=== PATIENT | male | born 1965 | race American Indian/Alaskan Native ===

== ENCOUNTER 2021-11-02 12:28 | Inpatient (IN) | payer SELFPAY ==
[2021-11-02] MEDS ORDERED: SODIUM CHLORIDE 0.9% 1000 ML 1,000 ML IV ONE (14:02)
--- NOTE | 2021-11-02 14:05 | Emergency Department Report ---
ED General Adult HPI - General Chief complaint: Head Injury Stated complaint: FELL DOWN STAIRS PUI?: No Time Seen by Provider: 11/02/21 13:54 Source: patient, RN notes reviewed Mode of arrival: Wheelchair Limitations: Physical Limitation - History of Present Illness Initial comments: The patient was evaluated in the emergency department for symptoms described in the history of present illness. He/she was evaluated in the context of the global COVID-19 pandemic, which necessitated consideration that the patient might be at risk for infection with the virus that causes COVID-19. Institutional protocols and algorithms that pertain to the evaluation of patients at risk for COVID-19 are in a state of rapid change based on i nformation released by regulatory bodies including the CDC and federal and state organizations. These policies and algorithms were followed during the patient's care in the emergency department. Please note that these policies, procedures and recommendations changed on a rapid basis. The patient is a 56-year-old gentleman. The patient reports that he is from [facility]. He has been living here in [facility] with a son/family member. He believes he has a past medical history of "inflamed liver." He does not know if he takes any prescription medications. He does not know if he has any additional past medical history. The patient presents to the ER today with a complaint of mechanical fall after walking upstairs. He reports that he has had progressive weakness and decline in functional status over the past 7 months. He reports that when he was walking up the stairs, he bent over, and felt his legs give out on him. He denies bladder/bowel retention incontinence and saddle anesthesia. He landed on his lumbar back, and cervical spine, as well as hitting his head. He complains of headache, neck pain, and lower back pain. He denies focal extremity weakness/numbness. He denies chest pain abdominal pain, vomiting. He denies fevers and chills. He reports that he is able to lift himself up out of bed without assistance, but that he does require assistance with some of his activities of daily living. He does not have a home health aide or home assistance. He reports that family members assist him with his activities of daily living. -: Sudden Severity scale (0 -10): 10 Improves with: rest Worsens with: movement - Related Data Allergies Allergy/AdvReac Type Severity Reaction Status Date / Time No Known Allergies Allergy Unverified 11/02/21 12:46 ED Review of Systems ROS: Stated complaint: FELL DOWN STAIRS Other details as noted in HPI Constitutional: malaise, weakness. denies: fever Eyes: denies: eye discharge ENT: denies: epistaxis Respiratory: denies: cough Cardiovascular: denies: chest pain, palpitations Gastrointestinal: denies: abdominal pain, nausea, vomiting, hematemesis, melena, hematochezia Genitourinary: denies: dysuria Musculoskeletal: back pain, arthralgia, myalgia Neurological: headache, weakness (Generalized weakness). denies: numbness, paresthesias ED Physical Exam - General Limitations: No Limitations General appearance: alert, in no apparent distress - Head Head exam: Present: atraumatic, normocephalic - Eye Eye exam: Present: normal appearance, EOMI. Absent: nystagmus - ENT ENT exam: Present: normal exam, normal orophraynx, mucous membranes moist, normal external ear exam - Neck Neck exam: Present: normal inspection, full ROM. Absent: tenderness, me ningismus - Respiratory Respiratory exam: Present: normal lung sounds bilaterally. Absent: respiratory distress, wheezes, rales, rhonchi, stridor, decreased breath sounds - Cardiovascular Cardiovascular Exam: Present: regular rate, normal rhythm, normal heart sounds. Absent: bradycardia, tachycardia, irregular rhythm, systolic murmur, diastolic murmur, rubs, gallop - GI/Abdominal GI/Abdominal exam: Present: soft. Absent: distended, tenderness, guarding, rebound, rigid, pulsatile mass - Rectal Rectal exam: Present: deferred - Extremities Exam Extremities exam: Present: normal inspection, full ROM, other (2+ pulses noted in the bilateral upper and lower extremities. There is no palpable cord. negative Homans sign. Muscular compartments are soft. The pelvis is stable.). Absent: pedal edema, calf tenderness - Back Exam Back exam: Present: normal inspection, muscle spasm, paraspinal tenderness, vertebral tenderness, other (There is cervical tenderness. There is lumbar tenderness). Absent: tenderness, CVA tenderness (L) - Neurological Exam Neurological exam: Present: alert (Patient withdraws both lower extremities vigorously in response to painful stimuli. He moves 4 extremities spontaneously), oriented X3, reflexes normal (Downgoing plantar reflexes bilaterally), other (No facial droop. Tongue midline. Extraocular movements intact bilaterally. Facial sensation intact to light touch in V1, V2, V3 distribution bilaterally. 5 and a 5 strength in 4 extremities. Sensation intact to light touch in 4 extremities.). Absent: motor sensory deficit - Psychiatric Psychiatric exam: Present: anxious - Skin Skin exam: Present: warm, dry, intact, normal color. Absent: rash ED Course Vital Signs 11/02/21 11/02/21 11/02/21 12:47 14:04 14:58 Temperature 97.8 F 98.9 F 98.9 F Pulse Rate 91 H 92 H Respiratory 20 17 Rate Blood Pressure 117/63 103/65 [Left] O2 Sat by Pulse 97 97 Oximetry - Reevaluation(s) Reevaluation #1: 11/02/21 15:16 Differential diagnosis, including but not limited to: Closed head injury, cervical spine injury, lumbar spine injury, thoracic spine injury, deconditioning, debility, pneumonia, urinary tract infection, myositis, rhabdomyolysis, myocardial infarction Assessment and plan: 56-year-old gentleman with frequent falls, and general debility over the past 7 months. He has 5/5 strength in 4 extremities, appropriate reflexes in the upper and lower extremities, sensation intact to pinch and light touch in the lower extremities, with downgoing plantar reflexes. He denies bladder or bowel retention incontinence as well as saddle anesthesia. His examination at this time is not suggestive of cord compression or emergent spinal pathology. He does describe a decline in functional status over the past 7 months, laboratory studies demonstrate rhabdomyolysis, transaminitis likely secondary to rhabdomyolysis, and elevated troponin, which is likely a type II troponin leak, likely secondary to the aforementioned. Noncontrast CT scan of the brain, cervical spine, thoracic spine and lumbar spine showed no fracture or dislocation. X-ray the chest and pelvis to my interpretatio Reevaluation #2: 11/02/21 15:24 Hospital physician, Dr. Still to admit patient to the medical service. - Consultations Consultation #1: 11/02/21 15:21 Discussed the patient's history, physical, laboratory studies and imaging studies with cardiology nurse practitioner on-call, Chavo Delgado. He is in agreement with the plan of care, and the cardiology team will follow in consultation. Awaiting callback from hospital physician. ED Medical Decision Making - Lab Data Result diagrams: 11/02/21 14:17 11/02/21 14:17 Vital Signs 11/02/21 11/02/21 11/02/21 12:47 14:04 14:58 Temperature 97.8 F 98.9 F 98.9 F Pulse Rate 91 H 92 H Respiratory 20 17 Rate Blood Pressure 117/63 103/65 [Left] O2 Sat by Pulse 97 97 Oximetry Lab Results 11/02/21 11/02/21 11/02/21 Range/Units 14:17 14:17 14:17 WBC 6.6 (4.5-11.0) K/mm3 RBC 4.84 (3.65-5.03) M/mm3 Hgb 12.5 (11.8-15.2) gm/dl Hct 39.4 (35.5-45.6) % MCV 81 L (84-94) fl MCH 26 L (28-32) pg MCHC 32 (32-34) % RDW 17.6 H (13.2-15.2) % Plt Count 469 H (140-440) K/mm3 Lymph % (Auto) 22.3 (13.4-35.0) % [place] % (Auto) 12.5 H (0.0-7.3) % Eos % (Auto) 3.2 (0.0-4.3) % Baso % (Auto) 0.9 (0.0-1.8) % Lymph # (Auto) 1.5 (1.2-5.4) K/mm3 [place] # (Auto) 0.8 (0.0-0.8) K/mm3 Eos # (Auto) 0.2 (0.0-0.4) K/mm3 Baso # (Auto) 0.1 (0.0-0.1) K/mm3 Seg Neutrophils % 61.1 (40.0-70.0) % Seg Neutrophils # 4.0 (1.8-7.7) K/mm3 PT 13.7 (12.2-14.9) Sec. INR 0.95 (0.87-1.13) APTT 35.5 (24.2-36.6) Sec. Sodium 135 L (137-145) mmol/L Potassium 4.4 (3.6-5.0) mmol/L Chloride 103.7 (98-107) mmol/L Carbon Dioxide 23 (22-30) mmol/L Anion Gap 13 mmol/L BUN 10 (9-20) mg/dL Creatinine 0.3 L (0.8-1.3) mg/dL Estimated GFR > 60 ml/min BUN/Creatinine Ratio 33 % Glucose 85 (75-100) mg/dL Lactic Acid (0.7-2.0) mmol/L Calcium 8.7 (8.4-10.2) mg/dL Total Bilirubin 0.20 (0.1-1.2) mg/dL AST 241 H (5-40) units/L ALT 150 H (7-56) units/L Alkaline Phosphatase 79 (35-129) units/L Ammonia (25-60) umol/L Total Creatine Kinase 32891 H (55-170) units/L Troponin T 2.360 H* (0.00-0.029) ng/mL Total Protein 8.3 H (6.3-8.2) g/dL Albumin 3.6 L (3.9-5) g/dL Albumin/Globulin Ratio 0.8 % TSH (0.270-4.200) mlU/mL Salicylates (2.8-20.0) mg/dL Acetaminophen (10.0-30.0) ug/mL Plasma/Serum Alcohol (0-0.07) % 11/02/21 11/02/21 11/02/21 Range/Units 14:17 14:17 14:17 WBC (4.5-11.0) K/mm3 RBC (3.65-5.03) M/mm3 Hgb (11.8-15.2) gm/dl Hct (35.5-45.6) % MCV (84-94) fl MCH (28-32) pg MCHC (32-34) % RDW (13.2-15.2) % Plt Count (140-440) K/mm3 Lymph % (Auto) (13.4-35.0) % [place] % (Auto) (0.0-7.3) % Eos % (Auto) (0.0-4.3) % Baso % (Auto) (0.0-1.8) % Lymph # (Auto) (1.2-5.4) K/mm3 [place] # (Auto) (0.0-0.8) K/mm3 Eos # (Auto) (0.0-0.4) K/mm3 Baso # (Auto) (0.0-0.1) K/mm3 Seg Neutrophils % (40.0-70.0) % Seg Neutrophils # (1.8-7.7) K/mm3 PT (12.2-14.9) Sec. INR (0.87-1.13) APTT (24.2-36.6) Sec. Sodium (137-145) mmol/L Potassium (3.6-5.0) mmol/L Chloride (98-107) mmol/L Carbon Dioxide (22-30) mmol/L Anion Gap mmol/L BUN (9-20) mg/dL Creatinine (0.8-1.3) mg/dL Estimated GFR ml/min BUN/Creatinine Ratio % Glucose (75-100) mg/dL Lactic Acid 1.60 (0.7-2.0) mmol/L Calcium (8.4-10.2) mg/dL Total Bilirubin (0.1-1.2) mg/dL AST (5-40) units/L ALT (7-56) units/L Alkaline Phosphatase (35-129) units/L Ammonia 17.0 L (25-60) umol/L Total Creatine Kinase (55-170) units/L Troponin T (0.00-0.029) ng/mL Total Protein (6.3-8.2) g/dL Albumin (3.9-5) g/dL Albumin/Globulin Ratio % TSH (0.270-4.200) mlU/mL Salicylates (2.8-20.0) mg/dL Acetaminophen (10.0-30.0) ug/mL Plasma/Serum Alcohol < 0.01 (0-0.07) % 11/02/21 11/02/21 11/02/21 Range/Units 14:17 14:17 14:17 WBC (4.5-11.0) K/mm3 RBC (3.65-5.03) M/mm3 Hgb (11.8-15.2) gm/dl Hct (35.5-45.6) % MCV (84-94) fl MCH (28-32) pg MCHC (32-34) % RDW (13.2-15.2) % Plt Count (140-440) K/mm3 Lymph % (Auto) (13.4-35.0) % [place] % (Auto) (0.0-7.3) % Eos % (Auto) (0.0-4.3) % Baso % (Auto) (0.0-1.8) % Lymph # (Auto) (1.2-5.4) K/mm3 [place] # (Auto) (0.0-0.8) K/mm3 Eos # (Auto) (0.0-0.4) K/mm3 Baso # (Auto) (0.0-0.1) K/mm3 Seg Neutrophils % (40.0-70.0) % Seg Neutrophils # (1.8-7.7) K/mm3 PT (12.2-14.9) Sec. INR (0.87-1.13) APTT (24.2-36.6) Sec. Sodium (137-145) mmol/L Potassium (3.6-5.0) mmol/L Chloride (98-107) mmol/L Carbon Dioxide (22-30) mmol/L Anion Gap mmol/L BUN (9-20) mg/dL Creatinine (0.8-1.3) mg/dL Estimated GFR ml/min BUN/Creatinine Ratio % Glucose (75-100) mg/dL Lactic Acid (0.7-2.0) mmol/L Calcium (8.4-10.2) mg/dL Total Bilirubin (0.1-1.2) mg/dL AST (5-40) units/L ALT (7-56) units/L Alkaline Phosphatase (35-129) units/L Ammonia (25-60) umol/L Total Creatine Kinase (55-170) units/L Troponin T (0.00-0.029) ng/mL Total Protein (6.3-8.2) g/dL Albumin (3.9-5) g/dL Albumin/Globulin Ratio % TSH 3.450 (0.270-4.200) mlU/mL Salicylates < 0.3 L (2.8-20.0) mg/dL Acetaminophen 5.0 L (10.0-30.0) ug/mL Plasma/Serum Alcohol (0-0.07) % - EKG Data -: EKG Interpreted by Me EKG shows normal: sinus rhythm Rate: normal - EKG Data When compared to previous EKG there are: previous EKG unavailable 11/02/21 15:11 The EKG is interpreted at 14: 07 Sinus rhythm, 94 bpm. Normal axis, QTC 438 ms. Normal P wave axis. Left ventricular hypertrophy. Not consistent with STEMI. No prior for comparison - Radiology Data Radiology results: report reviewed, image reviewed interpreted by me: 1 view x-ray of the chest, interpreted by myself, no pneumonia, no pneumothorax. X-ray of the pelvis, 1 view, interpreted by myself, no fracture or dislocation CT cervical spine wo con INDICATION / CLINICAL INFORMATION: 56 years Male; Trauma. TECHNIQUE: Axial CT images of the cervical spine were obtained. Sagittal and coronal reformatted images were produced. All CT scans at this location are performed using CT dose reduction for ALARA by means of automated exposure control. COMPARISON: None available. FINDINGS: POST-SURGICAL CHANGES: None. ALIGNMENT: There is no significant spondylolisthesis of the cervical spine. VERTEBRAE: There is notable disc space narrowing at C3-4, C5-6 and C6-7 with associated endplate changes. Milder findings are noted anteriorly at C4-5. However, there is no clear CT evidence of acute fracture the cervical spine. 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 INTRAVERTEBRAL DISCS: The facet and uncovertebral joint hypertrophy at C3-4 are greater on the left with marked left and moderate right foraminal narrowing. The spondylosis effaces the subarachnoid space at this level. There is moderate to marked foraminal narrowing bilaterally at C4-5. There is marked foraminal narrowing bilaterally at C5-6. The spondylosis effaces the ventral subarachnoid space at this level and at C6-7 at. There is marked right and moderate to marked left foraminal narrowing at C6-7. There appears to be moderate right foraminal narrowing at C7-T1. PARASPINAL SOFT TISSUES: No definitive prevertebral soft tissue fluid collections are identified. There are multiple scattered cervical lymph nodes which are nonspecific though may be reactive and correlation would be needed. ADDITIONAL FINDINGS: None. IMPRESSION: 1. There is no clear CT evidence of acute fracture of the cervical spine. 2. There are multilevel degenerative the changes and significant foraminal narrowing involving the cervical spine as detailed above. Signer Name: Chavo Lambert MD Signed: 11/02/2021 1:[address] LUMBAR SPINE WITHOUT CONTRAST INDICATION / CLINICAL INFORMATION: Trauma. Patient fell sustaining back injury. Back pain. TECHNIQUE: Axial CT images were obtained through the lumbar spine. Sagittal and coronal reformatted images were produced. All CT scans at this location are performed using CT dose reduction for ALARA by means of automated exposure control. COMPARISON: None available. FINDINGS: TRAUMA:There is no indication of fracture or traumatic subluxation. ALIGNMENT: No significant abnormality of alignment in the lumbar region. VERTEBRAE: No indication of fracture or bone destruction. Small anterior osteophytes are present lateralizing towards the left. DISC SPACES: Disc height is normally maintained throughout. DEGENERATIVE CHANGES: Advanced facet arthropathy on the left at the L4-5 level. There is no indication of disc extrusion, central canal stenosis or significant neuroforaminal narrowing in the lumbar region. SPINAL CANAL: Central spinal canal is adequate in size throughout the lumbar region. SACRUM:No significant abnormality of the visualized sacrum.. PARASPINAL SOFT TISSUES: No significant abnormality. ADDITIONAL FINDINGS: None. IMPRESSION: 1. No indication of fracture or traumatic subluxation. Signer Name: Dirk Adan MD Signed: 11/02/2021 1:[address] THORACIC SPINE WITHOUT CONTRAST INDICATION / CLINICAL INFORMATION: Trauma. Patient fell sustaining back injury. Back pain. TECHNIQUE: Axial CT images were obtained through the thoracic spine. Sagittal and coronal reformatted images were produced. All CT scans at this location are performed using CT dose reduction for ALARA by means of automated exposure control. COMPARISON: None a vailable. FINDINGS: VERTEBRAE: No significant abnormality. ALIGNMENT: No significant abnormality. DISC SPACES: No significant abnormality. FACET and COSTOVERTEBRAL JOINTS: No significant abnormality. CERVICOTHORACIC JUNCTION:No significant abnormality. SPINAL CANAL: No significant abnormality. PARASPINAL SOFT TISSUES: No significant abnormality. Superior mediastinum and paraspinous soft tissues have an unremarkable appearance. ADDITIONAL FINDINGS: Incidental note is made of a well-circumscribed bone island in the medial aspect of the left fourth rib. LUNGS: Visualized portions the lung are free from confluent infiltrate. No lung nodules are identified. There is no indication of pleural effusion. IMPRESSION: 1. No indication of fracture or traumatic subluxation. No significant degenerative change. Signer Name: Dirk Adan MD Signed: 11/02/2021 1:55 PM Workstation Name: [id number] CT head/brain wo con INDICATION / CLINICAL INFORMATION: 56 years Male; Trauma closed head injury. TECHNIQUE: Routine CT head without contrast. All CT scans at this location are performed using CT dose reduction for ALARA by means of automated exposure control. COMPARISON: None. FINDINGS: BRAIN / INTRACRANIAL CONTENTS: The brain parenchyma appears to demonstrate appropriate attenuation for age. The ventricular system is within normal limits in size and configuration. There is no clear CT evidence of acute intracranial hemorrhage or significant mass effect. ORBITS: No significant abnormality of visualized orbits. SINUSES / MASTOIDS: No significant abnormality in the visualized parana aleida sinuses or mastoid air cells. CRANIOCERVICAL JUNCTION: No significant abnormality. ADDITIONAL FINDINGS: There appears be mild edema involving the posterior scalp. The calvarium appears intact. The findings are most consistent with partially visualized incidental lipoma involving right buccal soft tissues. IMPRESSION: 1. There is no CT evidence of acute intracranial process. Signer Name: Chavo Lambert MD Signed: 11/02/2021 1:49 PM Workstation Name: [id number] XR pelvis 1-2V INDICATION / CLINICAL INFORMATION: fall lower back pain. COMPARISON: None available. FINDINGS: BONES/JOINT(S): No acute fracture or subluxation. No significant degenerative changes. SOFT TISSUES: No significant abnormality. ADDITIONAL FINDINGS: None. Signer Name: Efra Gregory MD Signed: 11/02/2021 2:14 PM Workstation Name: [id number] CHEST 1 VIEW 11/02/2021 2:11 PM INDICATION / CLINICAL INFORMATION: fall weakness tachycardia. COMPARISON: None available. FINDINGS: SUPPORT DEVICES: None. HEART / MEDIASTINUM: No significant abnormality. LUNGS / PLEURA: No significant pulmonary or pleural abnormality. No pneumothorax. ADDITIONAL FINDINGS: No significant additional findings. IMPRESSION: 1. No acute findings. Signer Name: Efra Gregory MD Signed: 11/02/2021 2:14 PM Workstation Name: [id number] Critical care attestation.: If time is entered above; I have spent that time in minutes in the direct care of this critically ill patient, excluding procedure time. ED Disposition Clinical Impression: Acute lumbar back pain, Cervical pain (neck), Closed head injury, Fall, Rhabdomyolysis, Transaminitis, Elevated troponin, Debility Disposition: 09 ADMITTED INPATIENT Is pt being admited?: Yes Does the pt Need Aspirin: Yes Condition: Fair Referrals: PRIMARY CARE,MD [Primary Care Provider] - 3-5 Days
[2021-11-02 14:33] LABS: Basophils # (Auto) 0.1 K/mm3 (0.0-0.1); Basophils % (Auto) 0.9 % (0.0-1.8); Eosinophils # (Auto) 0.2 K/mm3 (0.0-0.4); Eosinophils % (Auto) 3.2 % (0.0-4.3); Hematocrit 39.4 % (35.5-45.6); Hemoglobin 12.5 gm/dl (11.8-15.2); Lymphocytes # (Auto) 1.5 K/mm3 (1.2-5.4); Lymphocytes % (Auto) 22.3 % (13.4-35.0); Mean Corpuscular HGB Conc 32 % (32-34); Mean Corpuscular Volume 81 fl (84-94); Monocytes # (Auto) 0.8 K/mm3 (0.0-0.8); Monocytes % (Auto) 12.5 % (0.0-7.3); Platelet Count 469 K/mm3 (140-440); Red Blood Count 4.84 M/mm3 (3.65-5.03); Red Cell Distribution Width 17.6 % (13.2-15.2)
[2021-11-02 14:47] LABS: INR 0.95 (0.87-1.13)
[2021-11-02 14:48] LABS: Partial Thromboplastin Time 35.5 Sec. (24.2-36.6)
--- NOTE | 2021-11-02 14:52 | Electrocardiograph Report ---
[facility] Test Date: 2021-11-02 Test Time: 14:07:34 Pat Name: CONCHITA ALVARADO Department: Room: Gender: M Bulk Filler: LINCOLN : 1965 Requested By: EFE SOL Order Number: [id number] Reading MD: Tolu Mejia Measurements Intervals Krebs Rate: 94 P: 51 TN: 175 QRS: 14 QRSD: 91 T: 42 QT: 350 QTc: 438 Interpretive Statements Sinus rhythm Normal ECG No previous ECG available for comparison Electronically Signed On 11-02-2021 14:52:16 EST by Tolu Mejia
--- NOTE | 2021-11-02 14:53 | Cat Scan Report ---
CT head/brain wo con INDICATION / CLINICAL INFORMATION: 56 years Male; Trauma closed head injury. TECHNIQUE: Routine CT head without contrast. All CT scans at this location are performed using CT dos e reduction for ALARA by means of automated exposure control. COMPARISON: None. FINDINGS: BRAIN / INTRACRANIAL CONTENTS: The brain parenchyma appears to demonstrate appropriate attenuation fo r age. The ventricular system is within normal limits in size and configuration. There is no clear CT evidence of acute intracranial hemorrhage or significant mass effect. ORBITS: No significant abnormality of visualized orbits. SINUSES / MASTOIDS: No significant abnormality in the visualized paranasal sinuses or mastoid air neftaly ls. CRANIOCERVICAL JUNCTION: No significant abnormality. ADDITIONAL FINDINGS: There appears be mild edema involving the posterior scalp. The calvarium appears intact. The findings are most consistent with partially visualized incidental lipoma involving right buccal soft tissues. IMPRESSION: 1. There is no CT evidence of acute intracranial process. Signer Name: Chavo Lambert MD Signed: 11/02/2021 2:49 PM Workstation Name: [id number]
[2021-11-02 14:57] LABS: Alanine Aminotransferase 150 units/L (7-56); Albumin 3.6 g/dL (3.9-5); Blood Urea Nitrogen 10 mg/dL (9-20); Calcium 8.7 mg/dL (8.4-10.2); Hemolysis Index 3
--- NOTE | 2021-11-02 14:58 | Cat Scan Report ---
CT cervical spine wo con INDICATION / CLINICAL INFORMATION: 56 years Male; Trauma. TECHNIQUE: Axial CT images of the cervical spine were obtained. Sagittal and coronal reformatted images were pr oduced. All CT scans at this location are performed using CT dose reduction for ALARA by means of aut omated exposure control. COMPARISON: None available. FINDINGS: POST-SURGICAL CHANGES: None. ALIGNMENT: There is no significant spondylolisthesis of the cervical spine. VERTEBRAE: There is notable disc space narrowing at C3-4, C5-6 and C6-7 with associated endplate pérez ges. Milder findings are noted anteriorly at C4-5. However, there is no clear CT evidence of acute fr acture the cervical spine. 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 INTRAVERTEBRAL DISCS: The facet and uncovertebral joint hypertrophy at C3-4 are greater on the left w ith marked left and moderate right foraminal narrowing. The spondylosis effaces the subarachnoid spac e at this level. There is moderate to marked foraminal narrowing bilaterally at C4-5. There is marked foraminal narrowing bilaterally at C5-6. The spondylosis effaces the ventral subarach noid space at this level and at C6-7 at. There is marked right and moderate to marked left foraminal narrowing at C6-7. There appears to be moderate right foraminal narrowing at C7-T1. PARASPINAL SOFT TISSUES: No definitive prevertebral soft tissue fluid collections are identified. The re are multiple scattered cervical lymph nodes which are nonspecific though may be reactive and corre lation would be needed. ADDITIONAL FINDINGS: None. IMPRESSION: 1. There is no clear CT evidence of acute fracture of the cervical spine. 2. There are multilevel degenerative the changes and significant foraminal narrowing involving the ce rvical spine as detailed above. Signer Name: Chavo Lambert MD Signed: 11/02/2021 2:53 PM Workstation Name: [id number]
[2021-11-02 14:59] LABS: BUN/Creatinine Ratio 33
--- NOTE | 2021-11-02 15:00 | Cat Scan Report ---
CT THORACIC SPINE WITHOUT CONTRAST INDICATION / CLINICAL INFORMATION: Trauma. Patient fell sustaining back injury. Back pain. TECHNIQUE: Axial CT images were obtained through the thoracic spine. Sagittal and coronal reformatted images wer e produced. All CT scans at this location are performed using CT dose reduction for ALARA by means of automated exposure control. COMPARISON: None available. FINDINGS: VERTEBRAE: No significant abnormality. ALIGNMENT: No significant abnormality. DISC SPACES: No significant abnormality. FACET and COSTOVERTEBRAL JOINTS: No significant abnormality. CERVICOTHORACIC JUNCTION:No significant abnormality. SPINAL CANAL: No significant abnormality. PARASPINAL SOFT TISSUES: No significant abnormality. Superior mediastinum and paraspinous soft tissue s have an unremarkable appearance. ADDITIONAL FINDINGS: Incidental note is made of a well-circumscribed bone island in the medial aspect of the left fourth rib. LUNGS: Visualized portions the lung are free from confluent infiltrate. No lung nodules are identifie d. There is no indication of pleural effusion. IMPRESSION: 1. No indication of fracture or traumatic subluxation. No significant degenerative change. Signer Name: Dirk Adan MD Signed: 11/02/2021 2:55 PM Workstation Name: [id number]
--- NOTE | 2021-11-02 15:03 | Cat Scan Report ---
CT LUMBAR SPINE WITHOUT CONTRAST INDICATION / CLINICAL INFORMATION: Trauma. Patient fell sustaining back injury. Back pain. TECHNIQUE: Axial CT images were obtained through the lumbar spine. Sagittal and coronal reformatted images were produced. All CT scans at this location are performed using CT dose reduction for ALARA by means of a utomated exposure control. COMPARISON: None available. FINDINGS: TRAUMA:There is no indication of fracture or traumatic subluxation. ALIGNMENT: No significant abnormality of alignment in the lumbar region. VERTEBRAE: No indication of fracture or bone destruction. Small anterior osteophytes are present late ralizing towards the left. DISC SPACES: Disc height is normally maintained throughout. DEGENERATIVE CHANGES: Advanced facet arthropathy on the left at the L4-5 level. There is no indicatio n of disc extrusion, central canal stenosis or significant neuroforaminal narrowing in the lumbar reg ion. SPINAL CANAL: Central spinal canal is adequate in size throughout the lumbar region. SACRUM:No significant abnormality of the visualized sacrum.. PARASPINAL SOFT TISSUES: No significant abnormality. ADDITIONAL FINDINGS: None. IMPRESSION: 1. No indication of fracture or traumatic subluxation. Signer Name: Dirk Adan MD Signed: 11/02/2021 2:58 PM Workstation Name: [id number]
[2021-11-02] MEDS ORDERED: LACTATED RINGERS 1,000 ML IV ONE (15:09)
[2021-11-02 15:16] LABS: Chol/HDL Ratio 4.11 %; HDL Cholesterol 43 mg/dL (40-59); LDL Cholesterol,Direct 101 mg/dL (50-130)
[2021-11-02] MEDS ORDERED: ASPIRIN 81 MG TAB CHEW PO ONE (15:20)
--- NOTE | 2021-11-02 15:20 | XRay Report ---
CHEST 1 VIEW 11/02/2021 2:11 PM INDICATION / CLINICAL INFORMATION: fall weakness tachycardia. COMPARISON: None available. FINDINGS: SUPPORT DEVICES: None. HEART / MEDIASTINUM: No significant abnormality. LUNGS / PLEURA: No significant pulmonary or pleural abnormality. No pneumothorax. ADDITIONAL FINDINGS: No significant additional findings. IMPRESSION: 1. No acute findings. Signer Name: Efra Gregory MD Signed: 11/02/2021 3:14 PM Workstation Name: [id number]
--- NOTE | 2021-11-02 15:21 | XRay Report ---
XR pelvis 1-2V INDICATION / CLINICAL INFORMATION: fall lower back pain. COMPARISON: None available. FINDINGS: BONES/JOINT(S): No acute fracture or subluxation. No significant degenerative changes. SOFT TISSUES: No significant abnormality. ADDITIONAL FINDINGS: None. Signer Name: Efra Gregory MD Signed: 11/02/2021 3:14 PM Workstation Name: [id number]
[2021-11-02] MEDS ORDERED: MORPHINE 4 MG/1 ML INJ IV PRN (15:24)
[2021-11-02] MEDS ORDERED: NITROGLYCERIN 0.4 MG TAB SUBL SL PRN (15:24)
[2021-11-02] MEDS ORDERED: ACETAMINOPHEN 325 MG TAB PO PRN (15:24)
--- NOTE | 2021-11-02 15:24 | History and Physical Report ---
History of Present Illness Chief complaint: My legs gave out and I fell down the stairs History of present illness: 56 YO Male with ETOH Dependence complicated by Cirrhosis, Right Face Lipoma presents ED for evaluation. Patient reports "I am weak and I fell down the stairs". Patient states that he has experienced increased weakness over the past 1 month with persistent and worsening symptoms over the same timeframe. Patient reports that "my legs gave out" and he fell on stairs. Patient transported to [facility] via private vehicle for further care and evaluation of the aforementioned symptoms. The patient was seen and evaluated in the emergency department. All lab and imaging studies reviewed. Patient found to have rhabdomyolysis, as well as elevated troponin with suspected type II NSTEMI. Patient admitted to medical floor due to increased risk of worsening symptoms and initiated on IV fluid resuscitation therapy. Cardiology team consulted in ED. Patient denies fever, chills, chest pain, palpitation, productive cough, skin rash or recent contact, known exposure to COVID-19. No prior admission for review. No medication listed at time of admission for reconciliation. Advanced care planning conducted in ED. Past History Past Medical History: other (See HPI) Past Surgical History: No surgical history, Other (Reviewed) Social history: single, lives with family, alcohol abuse. denies: smoking Family history: diabetes, hypertension Medications and Allergies Allergies Allergy/AdvReac Type Severity Reaction Status Date / Time No Known Allergies Allergy Verified 11/02/21 15:31 Active Meds: Active Medications Lactated Ringer's (Lactated Ringers) 1,000 mls @ 999 mls/hr IV BOLUS ONE Stop: 11/02/21 16:09 Review of Systems Constitutional: weakness, no weight loss, no weight gain, no fever, no chills Ears, nose, mouth and throat: no ear pain, no decreased hearing, no nose pain Cardiovascular: no chest pain, no orthopnea, no rapid/irregular heart beat, no syncope Respiratory: no cough, no excessive sputum, no shortness of breath Gastrointestinal: no vomiting Genitourinary Male: no hematuria, no flank pain, no discharge, no urinary frequency, no urinary hesitancy Rectal: no pain, no incontinence, no bleeding Musculoskeletal: no neck stiffness, no neck pain, no arm numbness/tingling, no low back pain, no leg numbness/tingling Integumentary: no rash, no pruritis, no redness, no sores, no wounds Neurological: no head injury, no paralysis, no parathesias, no tingling, no seizures, no syncope Psychiatric: no anxiety, no sleep disturbances, no insomnia, no change in appetite, no suicidal ideation, no disorientation Endocrine: no cold intolerance, no polyphagia, no excessive thirst, no polydipsia, no nocturia Hematologic/Lymphatic: no easy bruising, no easy bleeding Allergic/Immunologic: no allergic rhinitis Exam - Constitutional Vitals: Temp Pulse Resp BP Pulse Ox 98.9 F 92 H 17 103/65 97 11/02/21 14:58 11/02/21 14:04 11/02/21 14:04 11/02/21 14:04 11/02/21 14:04 General appearance: Present: mild distress - EENT Eyes: Present: PERRL ENT: hearing intact, clear oral mucosa - Neck Neck: Present: supple, normal ROM - Respiratory Respiratory effort: normal Respiratory: bilateral: CTA - Cardiovascular Heart Sounds: Present: S1 & S2. Absent: rub, click - Extremities Extremities: pulses symmetrical, No edema Peripheral Pulses: within normal limits - Abdominal General gastrointestinal: Present: soft, non-tender, non-distended, normal bowel sounds Male genitourinary: Present: normal - Integumentary Integumentary: Present: clear, warm, dry - Musculoskeletal Musculoskeletal: gait normal, strength equal bilaterally - Psychiatric Psychiatric: appropriate mood/affect, intact judgment & insight - Neurologic Neurologic: CNII-XII intact, moves all extremities HEART Score - HEART Score Troponin: Troponin T 2.360 ng/mL (0.00-0.029) H* 11/02/21 14:17 Results - Labs CBC & Chem 7: 11/02/21 14:17 11/02/21 14:17 Labs: Abnormal lab results 11/02/21 11/02/21 11/02/21 Range/Units 14:17 14:17 14:17 MCV 81 L (84-94) fl MCH 26 L (28-32) pg RDW 17.6 H (13.2-15.2) % Plt Count 469 H (140-440) K/mm3 [place] % (Auto) 12.5 H (0.0-7.3) % Sodium 135 L (137-145) mmol/L Creatinine 0.3 L (0.8-1.3) mg/dL AST 241 H (5-40) units/L ALT 150 H (7-56) units/L Ammonia 17.0 L (25-60) umol/L Total Creatine Kinase 30412 H (55-170) units/L Troponin T 2.360 H* (0.00-0.029) ng/mL Total Protein 8.3 H (6.3-8.2) g/dL Albumin 3.6 L (3.9-5) g/dL Triglycerides 183 H (2-149) mg/dL Salicylates (2.8-20.0) mg/dL Acetaminophen (10.0-30.0) ug/mL 11/02/21 11/02/21 Range/Units 14:17 14:17 MCV (84-94) fl MCH (28-32) pg RDW (13.2-15.2) % Plt Count (140-440) K/mm3 [place] % (Auto) (0.0-7.3) % Sodium (137-145) mmol/L Creatinine (0.8-1.3) mg/dL AST (5-40) units/L ALT (7-56) units/L Ammonia (25-60) umol/L Total Creatine Kinase (55-170) units/L Troponin T (0.00-0.029) ng/mL Total Protein (6.3-8.2) g/dL Albumin (3.9-5) g/dL Triglycerides (2-149) mg/dL Salicylates < 0.3 L (2.8-20.0) mg/dL Acetaminophen 5.0 L (10.0-30.0) ug/mL Assessment and Plan - Patient Problems (1) Rhabdomyolysis Current Visit: Yes Status: Acute Qualifiers: Encounter type: initial encounter Plan to address problem: IV fluid resuscitation therapy, CK level, repeat CK level in a.m., IV bicarbon ate therapy, (2) NSTEMI (non-ST elevated myocardial infarction) Current Visit: Yes Status: Acute Plan to address problem: Type II NSTEMI:Cardiology team consulted, serial cardiac enzymes, EKG, echocardiogram ordered and is pending at time of admission. Supportive care. Suspect likely secondary to rhabdomyolysis. We will continue serial cardiac enzyme measurement to evaluate for resolution with treatment of rhabdomyolysis. (3) Alcohol dependence Current Visit: Yes Status: Acute Plan to address problem: Thiamine, folic acid, multivitamin daily, CIWA protocol. (4) Cirrhosis Current Visit: Yes Status: Acute Qualifiers: Hepatic cirrhosis type: alcoholic cirrhosis Plan to address problem: Supportive care. Outpatient GI follow-up. (5) DVT prophylaxis Current Visit: Yes Status: Acute Plan to address problem: SCD to bilateral lower extremities while in bed (6) Advance care planning Current Visit: Yes Status: Acute Plan to address problem: Disease education conducted, care plan discussed, diagnoses discussed, prognosis discussed, patient is full code. Patient acknowledges understanding and agree with care plan. +30 minutes.
[2021-11-02] MEDS ORDERED: SODIUM BICARB 8.4% 50 MEQ/50 ML SYRINGE IV ONE (15:30)
[2021-11-02 15:54] LABS: Bilirubin,Urine NEG (Negative); Blood,Urine SM (Negative); Color,Urine Yellow (Yellow); Protein,Urine <15 mg/dL mg/dL (Negative); Urobilinogen,Urine < 2.0 mg/dL (<2.0)
[2021-11-02 15:55] LABS: WBC,Urine < 1.0 /HPF (0.0-6.0)
--- NOTE | 2021-11-02 16:17 | Consultation ---
History of Present Illness Consult date: 11/02/21 Requesting physician: EFE SOL Consult reason: elevated troponin History of present illness: Patient is a 56-year-old male who states his only past medical history is an inflamed liver which he states he was diagnosed with about 7 months who presents to the ED today with a complaint of falls and weakness which has been going on for several months. Patient reports that this morning while walking up the stairs in his home when he got to the top of the stairs his muscles just felt weak and he fell backwards down the stairs hitting his head on the floor. Patient reports that he has had multiple falls and has noticed increasing muscle weakness and some weight loss since his diagnosis regarding his liver. Patient further states that he had this liver diagnosis in [facility] however is sta yun in [place] with his son for now. Patient denies any exacerbating or relieving factors regarding his weakness. Patient denies any other symptoms including chest pain, nausea, vomiting, shortness of breath, palpitation, lightheadedness, or dizziness. Patient is previously unknown to our practice. Cardiology is consulted for elevated troponins. Past History Past Medical History: other (Patient reports history of inflamed liver) Past Surgical History: No surgical history Social history: lives with family Family history: diabetes Medications and Allergies Allergies Allergy/AdvReac Type Severity Reaction Status Date / Time No Known Allergies Allergy Verified 11/02/21 15:31 Active Meds: Active Medications Acetaminophen (Acetaminophen 325 Mg Tab) 650 mg PO Q6H PRN PRN Reason: Pain, Mild (1-3) Sodium Chloride (Nacl 0.9% 1000 Ml) 1,000 mls @ 150 mls/hr IV DIRECT PHYLLIS Morphine Sulfate (Morphine 4 Mg/1 Ml Inj) 2 mg IV Q6HR PRN PRN Reason: Chest Pain unrelieved by NTG Nitroglycerin (Nitroglycerin 0.4 Mg Tab Subl) 0.4 mg SL Q5M PRN PRN Reason: Chest Pain Sodium Chloride (Sodium Chloride 0.9% 10 Ml Flush Syringe) 10 ml IV PRN PRN PRN Reason: LINE FLUSH Tramadol HCl (Tramadol 50 Mg Tab) 50 mg PO Q6H PRN PRN Reason: Pain, Moderate (4-6) Review of Systems Constitutional: weight loss, weakness Ears, nose, mouth and throat: no nasal discharge, no sinus pressure, no sinus pain Cardiovascular: no chest pain, no orthopnea, no palpitations, no edema, no syncope, no lightheadedness, no shortness of breath, no dyspnea on exertion, no high blood pressure Respiratory: no cough with sputum, no excessive sputum, no shortness of breath, no dyspnea on exertion Gastrointestinal: no abdominal pain, no nausea, no vomiting Musculoskeletal: muscle weakness, no neck stiffness, no neck pain Integumentary: no rash, no pruritis, no redness, no sores Neurological: weakness, no transient paralysis, no paralysis Psychiatric: no anxiety, no memory loss Endocrine: no cold intolerance, no heat intolerance Hematologic/Lymphatic: no easy bruising, no easy bleeding Physical Examination Vital Signs Temp Pulse Resp BP Pulse Ox 97.8 F 91 H 20 117/63 97 11/02/21 12:47 11/02/21 12:47 11/02/21 12:47 11/02/21 12:47 11/02/21 12:47 General appearance: no acute distress HEENT: Positive: PERRL, Normocephaly, Other (mass on face) Neck: Positive: trachea midline Cardiac: Positive: Reg Rate and Rhythm Lungs: Positive: Normal Breath Sounds Neuro: Positive: Grossly Intact Abdomen: Positive: Soft Skin: Negative: Rash, Suspicious Lesions, Ulceration Extremities: Present: upper extr. pulses. Absent: edema Results 11/02/21 14:17 11/02/21 14:17 Cardiac Enzymes 11/02/21 Range/Units 14:17 AST 241 H (5-40) units/L Coagulation 11/02/21 Range/Units 14:17 PT 13.7 (12.2-14.9) Sec. INR 0.95 (0.87-1.13) APTT 35.5 (24.2-36.6) Sec. Lipids 11/02/21 Range/Units 14:17 Triglycerides 183 H (2-149) mg/dL Cholesterol 177 (50-199) mg/dL HDL Cholesterol 43 (40-59) mg/dL Cholesterol/HDL Ratio 4.11 % CBC 11/02/21 Range/Units 14:17 WBC 6.6 (4.5-11.0) K/mm3 RBC 4.84 (3.65-5.03) M/mm3 Hgb 12.5 (11.8-15.2) gm/dl Hct 39.4 (35.5-45.6) % Plt Count 469 H (140-440) K/mm3 Lymph # (Auto) 1.5 (1.2-5.4) K/mm3 [place] # (Auto) 0.8 (0.0-0.8) K/mm3 Eos # (Auto) 0.2 (0.0-0.4) K/mm3 Baso # (Auto) 0.1 (0.0-0.1) K/mm3 Comprehensive Metabolic Panel 11/02/21 Range/Units 14:17 Sodium 135 L (137-145) mmol/L Potassium 4.4 (3.6-5.0) mmol/L Chloride 103.7 (98-107) mmol/L Carbon Dioxide 23 (22-30) mmol/L BUN 10 (9-20) mg/dL Creatinine 0.3 L (0.8-1.3) mg/dL Glucose 85 (75-100) mg/dL Calcium 8.7 (8.4-10.2) mg/dL AST 241 H (5-40) units/L ALT 150 H (7-56) units/L Alkaline Phosphatase 79 (35-129) units/L Total Protein 8.3 H (6.3-8.2) g/dL Albumin 3.6 L (3.9-5) g/dL - Imaging and Cardiology Echo: pending EKG: report reviewed, image reviewed EKG interpretations - Telemetry EKG Rhythm: Sinus Rhythm - EKG Sinus rhythms and dysrhythmias: sinus rhythm Assessment and Plan Patient is a 56-year-old male who states his only past medical history is an inflamed liver which he states he was diagnosed with about 7 months who presents to the ED today with a complaint of falls and weakness which has been going on for several months. Falls Weakness NSTEMI type 2 Rhabdomyolysis Plan: EKG sinus 94. No acute ischemic changes. Troponin noted to be elevated at 2.36. Repeat cardiac enzymes pending Per discussion with ED physician patient is believed to have rhabdomyolysis. patient has Total creatinine kinase >66804 Patient currently denies any cardiac symptoms including chest pain, shortness of breath, nausea, vomiting, or diarrhea Suspect NSTEMI type II in setting of rhabdomyolysis Echo pending Patient in conjunction with Dr. Moralez who agrees with this plan of care. - Patient Problems (1) Type 2 myocardial infarction Current Visit: Yes Status: Acute (2) Elevated troponin Current Visit: Yes Status: Acute (3) Fall Current Visit: Yes Status: Acute (4) Rhabdomyolysis Current Visit: Yes Status: Acute (5) Transaminitis Current Visit: Yes Status: Acute
[2021-11-02] MEDS: traMADol 50 MG TAB PO PRN (22:45)
[2021-11-03] MEDS: MULTIVITAMINS ,THERAPEUTIC TAB PO SCH ×2 (07:32→09:43)
[2021-11-03] MEDS: FOLIC ACID 1 MG TAB PO SCH ×2 (07:32→09:43)
[2021-11-03] MEDS: THIAMINE 100 MG TAB PO SCH ×2 (07:32→09:43)
--- NOTE | 2021-11-03 08:04 | Progress Note ---
Assessment and Plan Assessment and plan: #[place]habdomy[place] -[place] [address] -> [address], downtrending; will continue to trend -Continue IVFs -Likely secondary to fall -reported generalized weakness, will place PT consult #NSTEMI -Troponin 2.110 -> 2.290 -With elevated CK, likely secondary to rhabdomyolysis -Start aspirin -Cardiology consulted, no acute intervention needed at this time #Elevated liver enzymes -AST 241/ ALT 150; alk phos and t.bili WNL -tylenol level low -will order acute Hepatitis panel #History of cirrhosis -MELD Na 11, low risk of 90 day mortality -2/ to alcohol abuse -GI follow up outpatient -not decompensated at this time #Alcohol dependence -serum ETOH level negative -patient current abstinence History Interval history: No acute events overnight. Patient reports feeling generalized weakness at home and currently applying for disability. Was down at least 2 hours after falling down the steps. No complaints at this time. Hospitalist Physical - Physical exam Narrative exam: GENERAL: Well-developed well-nourished. In no acute distress. HEENT: Lipoma on R side of the face NECK: Supple. CHEST/LUNGS: CTAB on room air HEART/CARDIOVASCULAR: RRR. No murmur, rubs or gallops appreciated. ABDOMEN: +BS. NT/ND. SKIN: No rashes noted. NEURO: No focal motor deficit. Follows all commands. MUSCULOSKELETAL: No joint effusion. 4/5 muscle strength x4 extremities EXTREMITIES: No cyanosis, clubbing or edema. PSYCH: Cooperative. - Constitutional Vitals: Temp Pulse Resp BP Pulse Ox 98.0 F 87 16 101/49 99 11/03/21 07:52 11/03/21 07:52 11/03/21 07:52 11/03/21 07:52 11/03/21 07:52 General appearance: Present: mild distress HEART Score - HEART Score Troponin: Troponin T 2.290 ng/mL (0.00-0.029) H* 11/03/21 04:36 Results - Labs CBC & Chem 7: 11/02/21 14:17 11/02/21 14:17 Labs: Laboratory Last Values WBC 6.6 K/mm3 (4.5-11.0) 11/02/21 14:17 RBC 4.84 M/mm3 (3.65-5.03) 11/02/21 14:17 Hgb 12.5 gm/dl (11.8-15.2) 11/02/21 14:17 Hct 39.4 % (35.5-45.6) 11/02/21 14:17 MCV 81 fl (84-94) L 11/02/21 14:17 MCH 26 pg (28-32) L 11/02/21 14:17 MCHC 32 % (32-34) 11/02/21 14:17 RDW 17.6 % (13.2-15.2) H 11/02/21 14:17 Plt Count 469 K/mm3 (140-440) H 11/02/21 14:17 Lymph % (Auto) 22.3 % (13.4-35.0) 11/02/21 14:17 [place] % (Auto) 12.5 % (0.0-7.3) H 11/02/21 14:17 Eos % (Auto) 3.2 % (0.0-4.3) 11/02/21 14:17 Baso % (Auto) 0.9 % (0.0-1.8) 11/02/21 14:17 Lymph # (Auto) 1.5 K/mm3 (1.2-5.4) 11/02/21 14:17 [place] # (Auto) 0.8 K/mm3 (0.0-0.8) 11/02/21 14:17 Eos # (Auto) 0.2 K/mm3 (0.0-0.4) 11/02/21 14:17 Baso # (Auto) 0.1 K/mm3 (0.0-0.1) 11/02/21 14:17 Seg Neutrophils % 61.1 % (40.0-70.0) 11/02/21 14:17 Seg Neutrophils # 4.0 K/mm3 (1.8-7.7) 11/02/21 14:17 PT 13.7 Sec. (12.2-14.9) 11/02/21 14:17 INR 0.95 (0.87-1.13) 11/02/21 14:17 APTT 35.5 Sec. (24.2-36.6) 11/02/21 14:17 Sodium 135 mmol/L (137-145) L 11/02/21 14:17 Potassium 4.4 mmol/L (3.6-5.0) 11/02/21 14:17 Chloride 103.7 mmol/L (98-107) 11/02/21 14:17 Carbon Dioxide 23 mmol/L (22-30) 11/02/21 14:17 Anion Gap 13 mmol/L 11/02/21 14:17 BUN 10 mg/dL (9-20) 11/02/21 14:17 Creatinine 0.3 mg/dL (0.8-1.3) L 11/02/21 14:17 Estimated GFR > 60 ml/min 11/02/21 14:17 BUN/Creatinine Ratio 33 % 11/02/21 14:17 Glucose 85 mg/dL (75-100) 11/02/21 14:17 POC Glucose 84 mg/dL (70-105) 11/03/21 07:54 Lactic Acid 1.60 mmol/L (0.7-2.0) 11/02/21 14:17 Calcium 8.7 mg/dL (8.4-10.2) 11/02/21 14:17 Total Bilirubin 0.20 mg/dL (0.1-1.2) 11/02/21 14:17 AST 241 units/L (5-40) H 11/02/21 14:17 ALT 150 units/L (7-56) H 11/02/21 14:17 Alkaline Phosphatase 79 units/L (35-129) 11/02/21 14:17 Ammonia 17.0 umol/L (25-60) L 11/02/21 14:17 Total Creatine Kinase 79187 units/L (55-170) H 11/03/21 04:36 Troponin T 2.290 ng/mL (0.00-0.029) H* 11/03/21 04:36 Total Protein 8.3 g/dL (6.3-8.2) H 11/02/21 14:17 Albumin 3.6 g/dL (3.9-5) L 11/02/21 14:17 Albumin/Globulin Ratio 0.8 % 11/02/21 14:17 Triglycerides 183 mg/dL (2-149) H 11/02/21 14:17 Cholesterol 177 mg/dL (50-199) 11/02/21 14:17 LDL Cholesterol Direct 101 mg/dL (50-130) 11/02/21 14:17 HDL Cholesterol 43 mg/dL (40-59) 11/02/21 14:17 Cholesterol/HDL Ratio 4.11 % 11/02/21 14:17 TSH 3.450 mlU/mL (0.270-4.200) 11/02/21 14:17 Urine Color Yellow (Yellow) 11/02/21 Unknown Urine Turbidity Clear (Clear) 11/02/21 Unknown Urine pH 6.0 (5.0-7.0) 11/02/21 Unknown Ur Specific [place] 1.016 (1.003-1.030) 11/02/21 Unknown Urine Protein <15 mg/dl mg/dL (Negative) 11/02/21 Unknown Urine Glucose (UA) Neg mg/dL (Negative) 11/02/21 Unknown Urine Ketones Neg mg/dL (Negative) 11/02/21 Unknown Urine Blood Sm (Negative) 11/02/21 Unknown Urine Nitrite Neg (Negative) 11/02/21 Unknown Urine Bilirubin Neg (Negative) 11/02/21 Unknown Urine Urobilinogen < 2.0 mg/dL (<2.0) 11/02/21 Unknown Ur Leukocyte Esterase Neg (Negative) 11/02/21 Unknown Urine WBC (Auto) < 1.0 /HPF (0.0-6.0) 11/02/21 Unknown Urine RBC (Auto) 1.0 /HPF (0.0-6.0) 11/02/21 Unknown Salicylates < 0.3 mg/dL (2.8-20.0) L 11/02/21 14:17 Acetaminophen 5.0 ug/mL (10.0-30.0) L 11/02/21 14:17 Plasma/Serum Alcohol < 0.01 % (0-0.07) 11/02/21 14:17 Cohen/IV: Voiding Method Urinal Active Medications - Current Medications Current Medications: Generic Name Dose Route Start Last Admin Trade Name Freq PRN Reason Stop Dose Admin Acetaminophen 650 mg 11/02/21 15:24 Acetaminophen 325 Mg Tab PO Q6H PRN Pain, Mild (1-3) Folic Acid 1 mg 11/02/21 18:43 11/03/21 07:32 Folic Acid 1 Mg Tab PO Not Given QDAY PHYLLIS Sodium Chloride 1,000 mls @ 150 mls/hr 11/02/21 15:30 Nacl 0.9% 1000 Ml IV DIRECT PHYLLIS Morphine Sulfate 2 mg 11/02/21 15:24 Morphine 4 Mg/1 Ml Inj IV Q6HR PRN Chest Pain unrelieved by NTG Multivitamins 1 each 11/02/21 18:43 11/03/21 07:32 Multivitamins ,Therapeutic Tab PO Not Given QDAY [facility] Nitroglycerin 0.4 mg 11/02/21 15:24 Nitroglycerin 0.4 Mg Tab Subl SL Q5M PRN Chest Pain Sodium Chloride 10 ml 11/02/21 15:24 Sodium Chloride 0.9% 10 Ml Flush Syringe IV PRN PRN LINE FLUSH Thiamine HCl 100 mg 11/02/21 18:43 11/03/21 07:32 Thiamine 100 Mg Tab PO Not Given QDAY [facility] Tramadol HCl 50 mg 11/02/21 15:24 11/02/21 22:45 Tramadol 50 Mg Tab PO 50 mg Q6H PRN Administration Pain, Moderate (4-6)
[2021-11-03] MEDS: SODIUM CHLORIDE 0.9% 1000 ML 1,000 ML IV SCH ×2 (08:22→17:59)
--- NOTE | 2021-11-03 11:31 | Progress Note ---
Assessment and Plan From a cardiac perspective, patient is clinically very stable. No evidence of an acute coronary syndrome at this point. No symptoms. Start aspirin empirically. Continue IV fluids. Cycle CMP and CK. Follow-up echocardiogram. - Patient Problems (1) Alcohol dependence Current Visit: Yes Status: Acute (2) Debility Current Visit: Yes Status: Acute (3) Elevated troponin Current Visit: Yes Status: Acute (4) Fall Current Visit: Yes Status: Acute (5) NSTEMI (non-ST elevated myocardial infarction) Current Visit: Yes Status: Acute (6) Rhabdomyolysis Current Visit: Yes Status: Acute Qualifiers: Encounter type: initial encounter (7) Transaminitis Current Visit: Yes Status: Acute Subjective Date of service: 11/03/21 Interval history: No symptoms whatsoever. Patient states he feels much better. Objective Vital Signs Temp Pulse Pulse Resp BP BP Pulse Ox 11/03/21 09:50 88 18 100 11/03/21 07:52 98.0 F 87 16 101/49 99 11/03/21 04:05 98.1 F 91 H 16 106/57 97 11/02/21 23:48 100 11/02/21 23:44 98.3 F 88 16 105/58 100 11/02/21 20:41 78 25 H 146/32 99 11/02/21 20:31 76 27 H 146/32 99 11/02/21 20:21 80 22 146/32 99 11/02/21 20:11 77 26 H 146/32 100 11/02/21 20:01 70 25 H 146/32 100 11/02/21 19:55 146/32 11/02/21 18:00 96 H 24 119/71 99 11/02/21 17:50 100 H 21 119/71 11/02/21 17:48 98.9 F 11/02/21 17:45 95 H 14 119/71 11/02/21 17:40 93 H 17 119/71 11/02/21 17:31 95 H 14 119/71 11/02/21 17:30 96 H 25 H 119/71 11/02/21 17:20 96 H 21 119/71 11/02/21 17:15 95 H 22 119/71 11/02/21 17:10 99 H 22 119/71 11/02/21 17:01 103 H 20 119/11/02/21 17:00 91 H 26 H 110/68 11/02/21 16:50 97 H 22 110/68 11/02/21 16:45 97 H 33 H 110/68 11/02/21 16:40 94 H 11 L 110/68 11/02/21 16:31 95 H 19 110/68 11/02/21 16:30 89 11 L 110/68 11/02/21 16:20 88 19 110/68 11/02/21 16:15 87 19 110/68 11/02/21 16:10 88 18 110/68 11/02/21 16:01 90 16 110/68 11/02/21 16:00 88 15 117/70 11/02/21 15:55 89 14 117/70 11/02/21 15:45 88 19 117/70 11/02/21 15:31 89 13 117/70 11/02/21 15:15 87 23 95 11/02/21 15:06 89 23 99 11/02/21 14:58 98.9 F 11/02/21 14:04 98.9 F 92 H 17 103/65 97 11/02/21 12:47 97.8 F 91 H 20 117/63 97 - Physical Examination HEENT: Positive: PERRL, Normocephaly, Other (mass on face) Neck: Positive: trachea midline Neuro: Positive: Grossly Intact Abdomen: Positive: Soft Skin: Negative: Rash, Suspicious Lesions, Ulceration Extremities: Present: upper extr. pulses. Absent: edema - Labs and Meds Cardiac Enzymes 11/02/21 Range/Units 14:17 AST 241 H (5-40) units/L Coagulation 11/02/21 Range/Units 14:17 PT 13.7 (12.2-14.9) Sec. INR 0.95 (0.87-1.13) APTT 35.5 (24.2-36.6) Sec. Lipids 11/02/21 Range/Units 14:17 Triglycerides 183 H (2-149) mg/dL Cholesterol 177 (50-199) mg/dL HDL Cholesterol 43 (40-59) mg/dL Cholesterol/HDL Ratio 4.11 % CBC 11/02/21 Range/Units 14:17 WBC 6.6 (4.5-11.0) K/mm3 RBC 4.84 (3.65-5.03) M/mm3 Hgb 12.5 (11.8-15.2) gm/dl Hct 39.4 (35.5-45.6) % Plt Count 469 H (140-440) K/mm3 Lymph # (Auto) 1.5 (1.2-5.4) K/mm3 [place] # (Auto) 0.8 (0.0-0.8) K/mm3 Eos # (Auto) 0.2 (0.0-0.4) K/mm3 Baso # (Auto) 0.1 (0.0-0.1) K/mm3 Comprehensive Metabolic Panel 11/02/21 Range/Units 14:17 Sodium 135 L (137-145) mmol/L Potassium 4.4 (3.6-5.0) mmol/L Chloride 103.7 (98-107) mmol/L Carbon Dioxide 23 (22-30) mmol/L BUN 10 (9-20) mg/dL Creatinine 0.3 L (0.8-1.3) mg/dL Glucose 85 (75-100) mg/dL Calcium 8.7 (8.4-10.2) mg/dL AST 241 H (5-40) units/L ALT 150 H (7-56) units/L Alkaline Phosphatase 79 (35-129) units/L Total Protein 8.3 H (6.3-8.2) g/dL Albumin 3.6 L (3.9-5) g/dL - Imaging and Cardiology EKG: report reviewed, image reviewed Echo: pending - EKG Sinus rhythms and dysrhythmias: sinus rhythm
[2021-11-03] MEDS: ASPIRIN 325 MG TAB PO SCH (11:51)
[2021-11-03 15:53] LABS: Alanine Aminotransferase 136 units/L (7-56); Albumin 3.3 g/dL (3.9-5); Blood Urea Nitrogen 11 mg/dL (9-20); Calcium 8.8 mg/dL (8.4-10.2); Hemolysis Index 7
[2021-11-03 15:57] LABS: BUN/Creatinine Ratio 37
[2021-11-03 16:50] LABS: Creatine Kinase MB > 300.0 ng/mL (0.0-4.0)
--- NOTE | 2021-11-04 07:48 | Progress Note ---
Assessment and Plan Assessment and plan: #Rhabdomyolysis -CK 14k; will continue to trend -Continue IVFs -Likely secondary to fall -reported generalized weakness, PT consult #NSTEMI -Troponin 2.110 -> 2.290 -With elevated CK, likely secondary to rhabdomyolysis -continue aspirin -Echocardiogram showed LVEF 40-45% with mild diastolic dysfunction -Cardiology consulted, no acute intervention needed at this time #Elevated liver enzymes -AST/ ALT elevated; alk phos and t.bili WNL -tylenol level low -acute Hepatitis panel negative #History of cirrhosis -2/2 to alcohol abuse -GI follow up outpatient -not decompensated at this time #Alcohol dependence -serum ETOH level negative -patient current abstinence History Interval history: No acute events overnight. Patient reports feeling much better than he didwhen he was admitted. No complaints at this time. Hospitalist Physical - Physical exam Narrative exam: GENERAL: Well-developed well-nourished. In no acute distress. HEENT: Lipoma on R side of the face CHEST/LUNGS: CTAB on room air HEART/CARDIOVASCULAR: RRR. No murmur, rubs or gallops appreciated. ABDOMEN: +BS. NT/ND. SKIN: No rashes noted. NEURO: No focal motor deficit. Follows all commands. MUSCULOSKELETAL: No joint effusion. 4/5 muscle strength x4 extremities EXTREMITIES: No cyanosis, clubbing or edema. PSYCH: Cooperative. - Constitutional Vitals: Temp Pulse Resp BP Pulse Ox 98.3 F 89 16 109/60 100 11/04/21 03:36 11/04/21 03:36 11/04/21 03:36 11/04/21 03:36 11/04/21 03:36 General appearance: Present: mild distress HEART Score - HEART Score Troponin: Troponin T 2.290 ng/mL (0.00-0.029) H* 11/03/21 04:36 Results - Labs CBC & Chem 7: 11/02/21 14:17 11/04/21 06:46 Labs: Laboratory Last Values WBC 6.6 K/mm3 (4.5-11.0) 11/02/21 14:17 RBC 4.84 M/mm3 (3.65-5.03) 11/02/21 14:17 Hgb 12.5 gm/dl (11.8-15.2) 11/02/21 14:17 Hct 39.4 % (35.5-45.6) 11/02/21 14:17 MCV 81 fl (84-94) L 11/02/21 14:17 MCH 26 pg (28-32) L 11/02/21 14:17 MCHC 32 % (32-34) 11/02/21 14:17 RDW 17.6 % (13.2-15.2) H 11/02/21 14:17 Plt Count 469 K/mm3 (140-440) H 11/02/21 14:17 Lymph % (Auto) 22.3 % (13.4-35.0) 11/02/21 14:17 [place] % (Auto) 12.5 % (0.0-7.3) H 11/02/21 14:17 Eos % (Auto) 3.2 % (0.0-4.3) 11/02/21 14:17 Baso % (Auto) 0.9 % (0.0-1.8) 11/02/21 14:17 Lymph # (Auto) 1.5 K/mm3 (1.2-5.4) 11/02/21 14:17 [place] # (Auto) 0.8 K/mm3 (0.0-0.8) 11/02/21 14:17 Eos # (Auto) 0.2 K/mm3 (0.0-0.4) 11/02/21 14:17 Baso # (Auto) 0.1 K/mm3 (0.0-0.1) 11/02/21 14:17 Seg Neutrophils % 61.1 % (40.0-70.0) 11/02/21 14:17 Seg Neutrophils # 4.0 K/mm3 (1.8-7.7) 11/02/21 14:17 PT 13.7 Sec. (12.2-14.9) 11/02/21 14:17 INR 0.95 (0.87-1.13) 11/02/21 14:17 APTT 35.5 Sec. (24.2-36.6) 11/02/21 14:17 Sodium 135 mmol/L (137-145) L 11/03/21 14:59 Potassium 4.3 mmol/L (3.6-5.0) 11/03/21 14:59 Chloride 102.2 mmol/L (98-107) 11/03/21 14:59 Carbon Dioxide 22 mmol/L (22-30) 11/03/21 14:59 Anion Gap 15 mmol/L 11/03/21 14:59 BUN 11 mg/dL (9-20) 11/03/21 14:59 Creatinine 0.3 mg/dL (0.8-1.3) L 11/03/21 14:59 Estimated GFR > 60 ml/min 11/03/21 14:59 BUN/Creatinine Ratio 37 % 11/03/21 14:59 Glucose 104 mg/dL (75-100) H 11/03/21 14:59 POC Glucose 98 mg/dL (70-105) 11/03/21 20:34 Lactic Acid 1.60 mmol/L (0.7-2.0) 11/02/21 14:17 Calcium 8.8 mg/dL (8.4-10.2) 11/03/21 14:59 Total Bilirubin < 0.20 mg/dL (0.1-1.2) 11/03/21 14:59 AST 210 units/L (5-40) H 11/03/21 14:59 ALT 136 units/L (7-56) H 11/03/21 14:59 Alkaline Phosphatase 76 units/L (35-129) 11/03/21 14:59 Ammonia 17.0 umol/L (25-60) L 11/02/21 14:17 Total Creatine Kinase 23019 units/L (55-170) H 11/03/21 14:59 CK-MB (CK-2) > 300.0 ng/mL (0.0-4.0) H 11/03/21 14:59 CK-MB (CK-2) Rel Index 2.1 (0-4) 11/03/21 14:59 Troponin T 2.290 ng/mL (0.00-0.029) H* 11/03/21 04:36 Total Protein 7.0 g/dL (6.3-8.2) 11/03/21 14:59 Albumin 3.3 g/dL (3.9-5) L 11/03/21 14:59 Albumin/Globulin Ratio 0.9 % 11/03/21 14:59 Triglycerides 183 mg/dL (2-149) H 11/02/21 14:17 Cholesterol 177 mg/dL (50-199) 11/02/21 14:17 LDL Cholesterol Direct 101 mg/dL (50-130) 11/02/21 14:17 HDL Cholesterol 43 mg/dL (40-59) 11/02/21 14:17 Cholesterol/HDL Ratio 4.11 % 11/02/21 14:17 TSH 3.450 mlU/mL (0.270-4.200) 11/02/21 14:17 Urine Color Yellow (Yellow) 11/02/21 Unknown Urine Turbidity Clear (Clear) 11/02/21 Unknown Urine pH 6.0 (5.0-7.0) 11/02/21 Unknown Ur Specific [place] 1.016 (1.003-1.030) 11/02/21 Unknown Urine Protein <15 mg/dl mg/dL (Negative) 11/02/21 Unknown Urine Glucose (UA) Neg mg/dL (Negative) 11/02/21 Unknown Urine Ketones Neg mg/dL (Negative) 11/02/21 Unknown Urine Blood Sm (Negative) 11/02/21 Unknown Urine Nitrite Neg (Negative) 11/02/21 Unknown Urine Bilirubin Neg (Negative) 11/02/21 Unknown Urine Urobilinogen < 2.0 mg/dL (<2.0) 11/02/21 Unknown Ur Leukocyte Esterase Neg (Negative) 11/02/21 Unknown Urine WBC (Auto) < 1.0 /HPF (0.0-6.0) 11/02/21 Unknown Urine RBC (Auto) 1.0 /HPF (0.0-6.0) 11/02/21 Unknown Salicylates < 0.3 mg/dL (2.8-20.0) L 11/02/21 14:17 Acetaminophen 5.0 ug/mL (10.0-30.0) L 11/02/21 14:17 Plasma/Serum Alcohol < 0.01 % (0-0.07) 11/02/21 14:17 Cohen/IV: Voiding Method Urinal Active Medications - Current Medications Current Medications: Generic Name Dose Route Start Last Admin Trade Name Freq PRN Reason Stop Dose Admin Acetaminophen 650 mg 11/02/21 15:24 Acetaminophen 325 Mg Tab PO Q6H PRN Pain, Mild (1-3) Aspirin 325 mg 11/03/21 12:00 11/03/21 11:51 Aspirin 325 Mg Tab PO 325 mg QDAY PHYLLIS Administration Folic Acid 1 mg 11/02/21 18:43 11/03/21 09:43 Folic Acid 1 Mg Tab PO 1 mg QDAY PHYLLIS Administration Sodium Chloride 1,000 mls @ 150 mls/hr 11/02/21 15:30 11/03/21 17:59 Nacl 0.9% 1000 Ml IV 150 mls/hr DIRECT PHYLLIS Administration Morphine Sulfate 2 mg 11/02/21 15:24 Morphine 4 Mg/1 Ml Inj IV Q6HR PRN Chest Pain unrelieved by NTG Multivitamins 1 each 11/02/21 18:43 11/03/21 09:43 Multivitamins ,Therapeutic Tab PO 1 each QDAY PHYLLIS Administration Nitroglycerin 0.4 mg 11/02/21 15:24 Nitroglycerin 0.4 Mg Tab Subl SL Q5M PRN Chest Pain Sodium Chloride 10 ml 11/02/21 15:24 Sodium Chloride 0.9% 10 Ml Flush Syringe IV PRN PRN LINE FLUSH Thiamine HCl 100 mg 11/02/21 18:43 11/03/21 09:43 Thiamine 100 Mg Tab PO 100 mg QDAY PHYLLIS Administration Tramadol HCl 50 mg 11/02/21 15:24 11/02/21 22:45 Tramadol 50 Mg Tab PO 50 mg Q6H PRN Administration Pain, Moderate (4-6)
[2021-11-04 08:18] LABS: Hepatitis B Surface Antigen Non-Reactive (Negative); Hepatitis C Virus Antibody Non-Reactive (NonReactive)
[2021-11-04] MEDS: MULTIVITAMINS ,THERAPEUTIC TAB PO SCH (09:13)
[2021-11-04] MEDS: ASPIRIN 325 MG TAB PO SCH (09:13)
[2021-11-04] MEDS: THIAMINE 100 MG TAB PO SCH (09:13)
[2021-11-04] MEDS: FOLIC ACID 1 MG TAB PO SCH (09:13)
[2021-11-04] MEDS: SODIUM CHLORIDE 0.9% 1000 ML 1,000 ML IV SCH ×2 (09:14→21:15)
[2021-11-04 10:07] LABS: Alanine Aminotransferase 138 units/L (7-56); Albumin 3.3 g/dL (3.9-5); Blood Urea Nitrogen 8 mg/dL (9-20); Calcium 8.8 mg/dL (8.4-10.2); Hemolysis Index 3
[2021-11-04 10:18] LABS: BUN/Creatinine Ratio 40
--- NOTE | 2021-11-04 10:25 | Progress Note ---
Assessment and Plan From a cardiac perspective, patient is clinically very stable. No evidence of an acute coronary syndrome at this point. No symptoms. Start aspirin empirically. Continue IV fluids. Cycle CMP and CK. Echocardiogram shows mild cardiomyopathy of unclear etiology. Unable to add ANDREW or beta-blockade due to soft blood pressures. Continue with IV fluids. Add heparin sq for DVT prophylaxis. Stable cardiac status. - Patient Problems (1) Alcohol dependence Current Visit: Yes Status: Acute (2) Debility Current Visit: Yes Status: Acute (3) Elevated troponin Current Visit: Yes Status: Acute (4) Fall Current Visit: Yes Status: Acute (5) NSTEMI (non-ST elevated myocardial infarction) Current Visit: Yes Status: Acute (6) Rhabdomyolysis Current Visit: Yes Status: Acute Qualifiers: Encounter type: initial encounter (7) Transaminitis Current Visit: Yes Status: Acute Subjective Interval history: No symptoms whatsoever. Patient states he feels much better. Objective Vital Signs Temp Pulse Pulse Resp BP Pulse Ox 11/04/21 07:58 90 18 100 11/04/21 07:44 97.9 F 84 16 88/43 100 11/04/21 03:36 98.3 F 89 16 109/60 100 11/03/21 23:22 98.9 F 91 H 18 107/63 99 11/03/21 20:03 98.5 F 97 H 18 109/66 98 11/03/21 17:03 99.1 F 91 H 18 101/46 100 - Physical Examination HEENT: Positive: PERRL, Normocephaly, Other (mass on face) Neck: Positive: trachea midline Neuro: Positive: Grossly Intact Abdomen: Positive: Soft Skin: Negative: Rash, Suspicious Lesions, Ulceration Extremities: Present: upper extr. pulses. Absent: edema - Labs and Meds Cardiac Enzymes 11/03/21 11/04/21 Range/Units 14:59 06:46 AST 210 H 212 H (5-40) units/L CK-MB (CK-2) > 300.0 H (0.0-4.0) ng/mL Comprehensive Metabolic Panel 11/03/21 11/04/21 Range/Units 14:59 06:46 Sodium 135 L 138 (137-145) mmol/L Potassium 4.3 4.4 (3.6-5.0) mmol/L Chloride 102.2 104.2 (98-107) mmol/L Carbon Dioxide 22 22 (22-30) mmol/L BUN 11 8 L (9-20) mg/dL Creatinine 0.3 L 0.2 L (0.8-1.3) mg/dL Glucose 104 H 81 (75-100) mg/dL Calcium 8.8 8.8 (8.4-10.2) mg/dL AST 210 H 212 H (5-40) units/L ALT 136 H 138 H (7-56) units/L Alkaline Phosphatase 76 72 (35-129) units/L Total Protein 7.0 7.0 (6.3-8.2) g/dL Albumin 3.3 L 3.3 L (3.9-5) g/dL - Imaging and Cardiology EKG: report reviewed, image reviewed Echo: pending - EKG Sinus rhythms and dysrhythmias: sinus rhythm
[2021-11-04] MEDS: HEPARIN 5,000 UNIT/1 ML VIAL SUB-Q SCH ×2 (13:11→21:09)
--- NOTE | 2021-11-04 14:32 | Electrocardiograph Report ---
[facility] Test Date: 2021-11-03 Test Time: 07:20:43 Pat Name: CONCHITA ALVARADO Department: Room: A468 1 Gender: M Contract Associate: ASCENCION : 1965 Requested By: KAMILLA DIETRICH Order Number: [id number] Reading MD: Nilson Pena Measurements Intervals [place] Rate: 85 P: 61 WV: 182 QRS: 10 QRSD: 95 T: 44 QT: 373 QTc: 443 Interpretive Statements Sinus rhythm Probable left ventricular hypertrophy Anterior ST elevation, probably due to LVH Compared to ECG 11/02/2021 14:07:34 Left ventricular hypertrophy now present ST (T wave) deviation now present Electronically Signed On 11-04-2021 14:31:58 EST by Nilson Pena
--- NOTE | 2021-11-04 14:33 | Electrocardiograph Report ---
[facility] Test Date: 2021-11-03 Test Time: 10:19:13 Pat Name: CONCHITA ALVARADO Department: Room: A468 1 Gender: M Hand Weaver: ASCENCION : 1965 Requested By: KAMILLA DIETRICH Order Number: [id number] Reading MD: Nilson Pena Measurements Intervals [place] Rate: 89 P: 74 GA: 170 QRS: 0 QRSD: 90 T: 41 QT: 368 QTc: 448 Interpretive Statements Sinus rhythm Compared to ECG 11/03/2021 07:20:43 Left ventricular hypertrophy no longer present ST (T wave) deviation no longer present Electronically Signed On 11-04-2021 14:32:53 EST by Nilson Pena
[2021-11-05] MEDS: HEPARIN 5,000 UNIT/1 ML VIAL SUB-Q SCH ×3 (07:00→22:26)
[2021-11-05] MEDS: SODIUM CHLORIDE 0.9% 1000 ML 1,000 ML IV SCH ×2 (07:01→12:01)
--- NOTE | 2021-11-05 07:18 | Progress Note ---
Assessment and Plan Assessment and plan: #Rhabdomyolysis -stable; will continue to trend -Continue IVFs, can discontinue when CK level is less than 5000 -Likely secondary to fall #NSTEMI -Troponin 2.110 -> 2.290 -With elevated CK, likely secondary to rhabdomyolysis -continue aspirin -Echocardiogram showed LVEF 40-45% with mild diastolic dysfunction -Cardiology consulted, no acute intervention needed at this time #Elevated liver enzymes -AST/ ALT elevated; alk phos and t.bili WNL -tylenol level low -acute Hepatitis panel negative -likely 2/2 to cirrhosis #History of cirrhosis -2/2 to alcohol abuse -GI follow up outpatient -not decompensated at this time #Alcohol dependence -serum ETOH level negative -patient current abstinence #Discharge planning -PT evaluated patient determine need for subacute rehab, given lack of insurance patient agreeable to going home with home health and PT History Interval history: No acute events overnight. Patient has no complaints at this time. Hospitalist Physical - Physical exam Narrative exam: GENERAL: Well-developed well-nourished. In no acute distress. HEENT: Lipoma on R side of the face CHEST/LUNGS: CTAB on room air HEART/CARDIOVASCULAR: RRR. No murmur, rubs or gallops appreciated. ABDOMEN: +BS. NT/ND. SKIN: No rashes noted. NEURO: No focal motor deficit. Follows all commands. MUSCULOSKELETAL: No joint effusion. 4/5 muscle strength x4 extremities EXTREMITIES: No cyanosis, clubbing or edema. PSYCH: Cooperative. - Constitutional Vitals: Temp Pulse Resp BP Pulse Ox 98.6 F 95 H 18 103/51 100 11/05/21 03:39 11/05/21 03:39 11/05/21 03:39 11/05/21 03:39 11/05/21 03:39 General appearance: Present: mild distress HEART Score - HEART Score Troponin: Troponin T 2.290 ng/mL (0.00-0.029) H* 11/03/21 04:36 Results - Labs CBC & Chem 7: 11/02/21 14:17 11/05/21 06:56 Labs: Laboratory Last Values WBC 6.6 K/mm3 (4.5-11.0) 11/02/21 14:17 RBC 4.84 M/mm3 (3.65-5.03) 11/02/21 14:17 Hgb 12.5 gm/dl (11.8-15.2) 11/02/21 14:17 Hct 39.4 % (35.5-45.6) 11/02/21 14:17 MCV 81 fl (84-94) L 11/02/21 14:17 MCH 26 pg (28-32) L 11/02/21 14:17 MCHC 32 % (32-34) 11/02/21 14:17 RDW 17.6 % (13.2-15.2) H 11/02/21 14:17 Plt Count 469 K/mm3 (140-440) H 11/02/21 14:17 Lymph % (Auto) 22.3 % (13.4-35.0) 11/02/21 14:17 [place] % (Auto) 12.5 % (0.0-7.3) H 11/02/21 14:17 Eos % (Auto) 3.2 % (0.0-4.3) 11/02/21 14:17 Baso % (Auto) 0.9 % (0.0-1.8) 11/02/21 14:17 Lymph # (Auto) 1.5 K/mm3 (1.2-5.4) 11/02/21 14:17 [place] # (Auto) 0.8 K/mm3 (0.0-0.8) 11/02/21 14:17 Eos # (Auto) 0.2 K/mm3 (0.0-0.4) 11/02/21 14:17 Baso # (Auto) 0.1 K/mm3 (0.0-0.1) 11/02/21 14:17 Seg Neutrophils % 61.1 % (40.0-70.0) 11/02/21 14:17 Seg Neutrophils # 4.0 K/mm3 (1.8-7.7) 11/02/21 14:17 PT 13.7 Sec. (12.2-14.9) 11/02/21 14:17 INR 0.95 (0.87-1.13) 11/02/21 14:17 APTT 35.5 Sec. (24.2-36.6) 11/02/21 14:17 Sodium 138 mmol/L (137-145) 11/04/21 06:46 Potassium 4.4 mmol/L (3.6-5.0) 11/04/21 06:46 Chloride 104.2 mmol/L (98-107) 11/04/21 06:46 Carbon Dioxide 22 mmol/L (22-30) 11/04/21 06:46 Anion Gap 16 mmol/L 11/04/21 06:46 BUN 8 mg/dL (9-20) L 11/04/21 06:46 Creatinine 0.2 mg/dL (0.8-1.3) L 11/04/21 06:46 Estimated GFR > 60 ml/min 11/04/21 06:46 BUN/Creatinine Ratio 40 % 11/04/21 06:46 Glucose 81 mg/dL (75-100) 11/04/21 06:46 POC Glucose 98 mg/dL (70-105) 11/03/21 20:34 Lactic Acid 1.60 mmol/L (0.7-2.0) 11/02/21 14:17 Calcium 8.8 mg/dL (8.4-10.2) 11/04/21 06:46 Total Bilirubin 0.20 mg/dL (0.1-1.2) 11/04/21 06:46 AST 212 units/L (5-40) H 11/04/21 06:46 ALT 138 units/L (7-56) H 11/04/21 06:46 Alkaline Phosphatase 72 units/L (35-129) 11/04/21 06:46 Ammonia 17.0 umol/L (25-60) L 11/02/21 14:17 Total Creatine Kinase 72629 units/L (55-170) H 11/04/21 06:46 CK-MB (CK-2) > 300.0 ng/mL (0.0-4.0) H 11/03/21 14:59 CK-MB (CK-2) Rel Index 2.1 (0-4) 11/03/21 14:59 Troponin T 2.290 ng/mL (0.00-0.029) H* 11/03/21 04:36 Total Protein 7.0 g/dL (6.3-8.2) 11/04/21 06:46 Albumin 3.3 g/dL (3.9-5) L 11/04/21 06:46 Albumin/Globulin Ratio 0.9 % 11/04/21 06:46 Triglycerides 183 mg/dL (2-149) H 11/02/21 14:17 Cholesterol 177 mg/dL (50-199) 11/02/21 14:17 LDL Cholesterol Direct 101 mg/dL (50-130) 11/02/21 14:17 HDL Cholesterol 43 mg/dL (40-59) 11/02/21 14:17 Cholesterol/HDL Ratio 4.11 % 11/02/21 14:17 TSH 3.450 mlU/mL (0.270-4.200) 11/02/21 14:17 Urine Color Yellow (Yellow) 11/02/21 Unknown Urine Turbidity Clear (Clear) 11/02/21 Unknown Urine pH 6.0 (5.0-7.0) 11/02/21 Unknown Ur Specific [place] 1.016 (1.003-1.030) 11/02/21 Unknown Urine Protein <15 mg/dl mg/dL (Negative) 11/02/21 Unknown Urine Glucose (UA) Neg mg/dL (Negative) 11/02/21 Unknown Urine Ketones Neg mg/dL (Negative) 11/02/21 Unknown Urine Blood Sm (Negative) 11/02/21 Unknown Urine Nitrite Neg (Negative) 11/02/21 Unknown Urine Bilirubin Neg (Negative) 11/02/21 Unknown Urine Urobilinogen < 2.0 mg/dL (<2.0) 11/02/21 Unknown Ur Leukocyte Esterase Neg (Negative) 11/02/21 Unknown Urine WBC (Auto) < 1.0 /HPF (0.0-6.0) 11/02/21 Unknown Urine RBC (Auto) 1.0 /HPF (0.0-6.0) 11/02/21 Unknown Salicylates < 0.3 mg/dL (2.8-20.0) L 11/02/21 14:17 Acetaminophen 5.0 ug/mL (10.0-30.0) L 11/02/21 14:17 Plasma/Serum Alcohol < 0.01 % (0-0.07) 11/02/21 14:17 Hepatitis A IgM Ab Non-reactive (NonReactive) 11/04/21 06:46 Hep Bs Antigen Non-reactive (Negative) 11/04/21 06:46 Hep B Core IgM Ab Non-reactive (NonReactive) 11/04/21 06:46 Hepatitis C Antibody Non-reactive (NonReactive) 11/04/21 06:46 Cohen/IV: Voiding Method Toilet Active Medications - Current Medications Current Medications: Generic Name Dose Route Start Last Admin Trade Name Freq PRN Reason Stop Dose Admin Acetaminophen 650 mg 11/02/21 15:24 Acetaminophen 325 Mg Tab PO Q6H PRN Pain, Mild (1-3) Aspirin 325 mg 11/03/21 12:00 11/04/21 09:13 Aspirin 325 Mg Tab PO 325 mg QDAY PHYLLIS Administration Folic Acid 1 mg 11/02/21 18:43 11/04/21 09:13 Folic Acid 1 Mg Tab PO 1 mg QDAY PHYLLIS Administration Heparin Sodium (Porcine) 5,000 unit 11/04/21 14:00 11/05/21 07:00 Heparin 5,000 Unit/1 Ml Vial SUB-Q 5,000 unit Q8HR PHYLLIS Administration Sodium Chloride 1,000 mls @ 150 mls/hr 11/02/21 15:30 11/05/21 07:01 Nacl 0.9% 1000 Ml IV 150 mls/hr DIRECT PHYLLIS Administration Morphine Sulfate 2 mg 11/02/21 15:24 Morphine 4 Mg/1 Ml Inj IV Q6HR PRN Chest Pain unrelieved by NTG Multivitamins 1 each 11/02/21 18:43 11/04/21 09:13 Multivitamins ,Therapeutic Tab PO 1 each QDAY PHYLLIS Administration Nitroglycerin 0.4 mg 11/02/21 15:24 Nitroglycerin 0.4 Mg Tab Subl SL Q5M PRN Chest Pain Sodium Chloride 10 ml 11/02/21 15:24 Sodium Chloride 0.9% 10 Ml Flush Syringe IV PRN PRN LINE FLUSH Thiamine HCl 100 mg 11/02/21 18:43 11/04/21 09:13 Thiamine 100 Mg Tab PO 100 mg QDAY PHYLLIS Administration Tramadol HCl 50 mg 11/02/21 15:24 11/02/21 22:45 Tramadol 50 Mg Tab PO 50 mg Q6H PRN Administration Pain, Moderate (4-6)
[2021-11-05 09:49] LABS: Alanine Aminotransferase 134 units/L (7-56); Albumin 3.3 g/dL (3.9-5); Blood Urea Nitrogen 8 mg/dL (9-20); Calcium 8.3 mg/dL (8.4-10.2); Hemolysis Index 5
[2021-11-05 09:56] LABS: BUN/Creatinine Ratio 27
[2021-11-05] MEDS: ASPIRIN 325 MG TAB PO SCH (10:05)
[2021-11-05] MEDS: MULTIVITAMINS ,THERAPEUTIC TAB PO SCH (10:05)
[2021-11-05] MEDS: THIAMINE 100 MG TAB PO SCH (10:05)
[2021-11-05] MEDS: FOLIC ACID 1 MG TAB PO SCH (10:05)
--- NOTE | 2021-11-05 11:45 | Progress Note ---
Assessment and Plan Patient is a 56-year-old male who states his only past medical history is an inflamed liver which he states he was diagnosed with about 7 months who presents to the ED today with a complaint of falls and weakness which has been going on for several months. Falls Weakness NSTEMI type 2 Rhabdomyolysis Transaminitis Echo 11/02/2021-EF 40 to 45%. Mild global hypokinesis of LV. Mild diastolic dysfunction present impaired relaxation pattern. Mild mitral regurgitation Plan: From a cardiac perspective patient remains clinically stable. No evidence of an acute coronary syndrome at this point. Patient remains asymptomatic. Continue IV fluids. Suspect NSTEMI type II in setting of rhabdomyolysis No ANDREW, ARB, or beta-damian due to soft bp Patient in conjunction with Dr. Layton who agrees with this plan of care. - Patient Problems (1) Type 2 myocardial infarction Current Visit: Yes Status: Acute (2) Elevated troponin Current Visit: Yes Status: Acute (3) Fall Current Visit: Yes Status: Acute (4) Rhabdomyolysis Current Visit: Yes Status: Acute Qualifiers: Encounter type: initial encounter (5) Transaminitis Current Visit: Yes Status: Acute Subjective Date of service: 11/05/21 Principal diagnosis: Rhabdomyolysis Interval history: Patient sitting in bed in no acute distress. Patient reports feeling better Sinus 90s on monitor Objective Vital Signs Temp Pulse Resp BP Pulse Ox 11/05/21 08:01 98.7 F 98 H 16 105/59 98 11/05/21 03:39 98.6 F 95 H 18 103/51 100 11/04/21 23:31 98.2 F 94 H 16 114/54 98 11/04/21 23:00 99 11/04/21 19:23 98.4 F 91 H 16 104/56 100 11/04/21 15:36 98.4 F 90 16 98/54 100 - Physical Examination HEENT: Positive: PERRL, Normocephaly, Other (mass on face) Neck: Positive: trachea midline Cardiac: Positive: Reg Rate and Rhythm Lungs: Positive: Normal Breath Sounds Neuro: Positive: Grossly Intact Abdomen: Positive: Soft Skin: Negative: Rash, Suspicious Lesions, Ulceration Extremities: Present: upper extr. pulses. Absent: edema - Labs and Meds Cardiac Enzymes 11/05/21 Range/Units 06:56 AST 217 H (5-40) units/L Comprehensive Metabolic Panel 11/05/21 Range/Units 06:56 Sodium 136 L (137-145) mmol/L Potassium 4.1 (3.6-5.0) mmol/L Chloride 102.6 (98-107) mmol/L Carbon Dioxide 22 (22-30) mmol/L BUN 8 L (9-20) mg/dL Creatinine 0.3 L (0.8-1.3) mg/dL Glucose 82 (75-100) mg/dL Calcium 8.3 L (8.4-10.2) mg/dL AST 217 H (5-40) units/L ALT 134 H (7-56) units/L Alkaline Phosphatase 72 (35-129) units/L Total Protein 7.4 (6.3-8.2) g/dL Albumin 3.3 L (3.9-5) g/dL - Imaging and Cardiology EKG: report reviewed, image reviewed Echo: report reviewed - Telemetry EKG Rhythm: Sinus Rhythm - EKG Sinus rhythms and dysrhythmias: sinus rhythm
[2021-11-06] MEDS: SODIUM CHLORIDE 0.9% 1000 ML 1,000 ML IV SCH ×2 (02:46→09:47)
[2021-11-06] MEDS: HEPARIN 5,000 UNIT/1 ML VIAL SUB-Q SCH ×3 (05:45→22:43)
[2021-11-06 06:48] LABS: Blood Urea Nitrogen 9 mg/dL (9-20); Hemolysis Index 2
[2021-11-06 06:49] LABS: BUN/Creatinine Ratio 45
[2021-11-06] MEDS: ASPIRIN 325 MG TAB PO SCH (09:45)
[2021-11-06] MEDS: MULTIVITAMINS ,THERAPEUTIC TAB PO SCH (09:45)
[2021-11-06] MEDS: THIAMINE 100 MG TAB PO SCH (09:45)
[2021-11-06] MEDS: FOLIC ACID 1 MG TAB PO SCH (09:45)
--- NOTE | 2021-11-06 13:16 | Consultation ---
History of Present Illness Consult date: 11/06/21 Reason for Consult: Legs weakness , recurrent fall ,elevated CPK, hx of alcoholism History of present illness: My legs gave out and I fell down the stairs History of present illness: 56 YO Male with ETOH Dependence complicated by Cirrhosis, Right Face Lipoma presents ED for evaluation. Patient reports "I am weak and I fell down the stairs". Patient states that he has experienced increased weakness over the past 1 month with persistent and worsening symptoms over the same timeframe. Patient reports that "my legs gave out" and he fell on stairs. Patient transported to [facility] via private vehicle for further care and evaluation of the aforementioned symptoms. [facility] All lab and imaging studies reviewed. Patient found to have rhabdomyolysis, as well as elevated troponin with suspected type II NSTEMI. Patient admitted to medical floor due to increased risk of worsening symptoms and initiated on IV fluid resuscitation therapy. Cardiology team consulted in ED. Patient denies fever, chills, chest pain, palpitation, productive cough, skin rash or recent contact, known exposure to COVID-19. No prior admission for review. No medication listed at time of admission for reconciliation. Advanced care planning conducted in ED. neurology is consulted today due to recurrent fall and elevated CPK according to pt. for the last 6 months he is falling frequently at least once a month , before coming to hospital he fell and was on the floor for at least 1-2 hours until his son came and helped him , he denied neck or back pain , denied family hx of similar nature, denied bladder incontinence denied numbness in feet but describes bilateral hands numbness and weakness he is with left dislocated shoulder denied hx of seizure or syncope his weakness started over 6 months ago and is progressive , he is able to wall with slight help , he noted increase stiffness in lower extremities. According to him he had no alcohol for a while , does not knows why he had liver cirrhosis , denied alcoholic history !!! Past History Past Medical History: other (See HPI) Past Surgical History: No surgical history, Other (Reviewed) Social history: single, lives with family, alcohol abuse. denies: smoking Family history: diabetes, hypertension Medications and Allergies Allergies Allergy/AdvReac Type Severity Reaction Status Date / Time No Known Allergies Allergy Verified 11/02/21 15:31 Active Meds: Active Medications Lactated Ringer's (Lactated Ringers) 1,000 mls @ 999 mls/hr IV BOLUS ONE Stop: 11/02/21 16:09 Review of Systems Constitutional: weakness, no weight loss, no weight gain, no fever, no chills Ears, nose, mouth and throat: no ear pain, no decreased hearing, no nose pain Cardiovascular: no chest pain, no orthopnea, no rapid/irregular heart beat, no syncope Respiratory: no cough, no excessive sputum, no shortness of breath Gastrointestinal: no vomiting Genitourinary Male: no hematuria, no flank pain, no discharge, no urinary frequency, no urinary hesitancy Rectal: no pain, no incontinence, no bleeding Musculoskeletal: no neck stiffness, no neck pain, no arm numbness/tingling, no low back pain, no leg numbness/tingling Integumentary: no rash, no pruritis, no redness, no sores, no wounds Neurological: no head injury, no paralysis, no parathesias, no tingling, no seizures, no syncope Psychiatric: no anxiety, no sleep disturbances, no insomnia, no change in appetite, no suicidal ideation, no disorientation Endocrine: no cold intolerance, no polyphagia, no excessive thirst, no polydipsia, no nocturia Hematologic/Lymphatic: no easy bruising, no easy bleeding Allergic/Immunologic: no allergic rhinitis Past History Past Medical History: other (See HPI) Past Surgical History: No surgical history, Other (Reviewed) Social history: single, lives with family, alcohol abuse. denies: smoking Family history: diabetes, hypertension Medications and Allergies Allergies Allergy/AdvReac Type Severity Reaction Status Date / Time No Known Allergies Allergy Verified 11/05/21 13:42 Home Medications Medication Instructions Recorded Confirmed Last Taken Type No Known Home Medications [No 11/05/21 11/05/21 Unknown History Reported Home Medications] Active Meds: Active Medications Acetaminophen (Acetaminophen 325 Mg Tab) 650 mg PO Q6H PRN PRN Reason: Pain, Mild (1-3) Aspirin (Aspirin 325 Mg Tab) 325 mg PO QDAY [facility] Last Admin: 11/06/21 09:45 Dose: 325 mg Folic Acid (Folic Acid 1 Mg Tab) 1 mg PO QDAY [facility] Last Admin: 11/06/21 09:45 Dose: 1 mg Heparin Sodium (Porcine) (Heparin 5,000 Unit/1 Ml Vial) 5,000 unit SUB-Q Q8HR [facility] Last Admin: 11/06/21 05:45 Dose: 5,000 unit Sodium Chloride (Nacl 0.9% 1000 Ml) 1,000 mls @ 200 mls/hr IV DIRECT [facility] Last Admin: 11/06/21 09:47 Dose: 150 mls/hr Morphine Sulfate (Morphine 4 Mg/1 Ml Inj) 2 mg IV Q6HR PRN PRN Reason: Chest Pain unrelieved by NTG Multivitamins (Multivitamins ,Therapeutic Tab) 1 each PO QDAY [facility] Last Admin: 11/06/21 09:45 Dose: 1 each Nitroglycerin (Nitroglycerin 0.4 Mg Tab Subl) 0.4 mg SL Q5M PRN PRN Reason: Chest Pain Sodium Chloride (Sodium Chloride 0.9% 10 Ml Flush Syringe) 10 ml IV PRN PRN PRN Reason: LINE FLUSH Last Admin: 11/06/21 09:45 Dose: 10 ml Thiamine HCl (Thiamine 100 Mg Tab) 100 mg PO QDAY [facility] Last Admin: 11/06/21 09:45 Dose: 100 mg Tramadol HCl (Tramadol 50 Mg Tab) 50 mg PO Q6H PRN PRN Reason: Pain, Moderate (4-6) Last Admin: 11/02/21 22:45 Dose: 50 mg Physical Examination - Vital Signs Vital Signs: Vital Signs Temp Pulse Resp BP Pulse Ox 97.8 F 91 H 20 117/63 97 11/02/21 12:47 11/02/21 12:47 11/02/21 12:47 11/02/21 12:47 11/02/21 12:47 - Constitutional General appearance: uncomfortable - EENT EENT: Present: PERRL, mucous membranes moist - Respiratory Respiratory: Present: lungs clear, rhonchi - Cardiovascular Cardiovascular: Present: regular rate, normal S1, normal S2 Extremities: Present: no peripheral edema bilatateraly, no clubbing, cyanosis - Gastrointestinal Gastrointestinal: Present: normoactive bowel sounds - Integumentary Integumentary: Present: normal - Neurologic Cranial nerve examination: PERRL, EOMI, intact Speech examination: intact Sensorimotor examination: intact Detailed motor examination: other (bilateral weakness at shoulder abduction with left shoulder tenderness , lower are 4-/5 with difficulty standing up from sitting without help , reflexes are suppressed in both lower at knees and intact ankle reflexes no clonus , upper is remarkable for slight brisk reflexes and +-, he is with slight) Motor examination - right side: 10/03: biceps, triceps, wrist flexion, wrist ex tension, fire extinguisher charger, hip flexors, knee extensors, dorsiflexion, toe extension (EHL), plantarflexion Results - Laboratory Findings CBC and BMP: 11/02/21 14:17 11/06/21 04:27 Abnormal Lab Findings: Abnormal Labs 11/02/21 11/02/21 11/02/21 14:17 14:17 14:17 MCV 81 L MCH 26 L RDW 17.6 H Plt Count 469 H Stearns % (Auto) 12.5 H Sodium 135 L Chloride Carbon Dioxide BUN Creatinine 0.3 L Glucose Calcium AST 241 H ALT 150 H Ammonia 17.0 L Total Creatine Kinase 98956 H CK-MB (CK-2) Troponin T 2.360 H* Total Protein 8.3 H Albumin 3.6 L Triglycerides 183 H Salicylates Acetaminophen 11/02/21 11/02/21 11/02/21 14:17 14:17 23:17 MCV MCH RDW Plt Count Stearns % (Auto) Sodium Chloride Carbon Dioxide BUN Creatinine Glucose Calcium AST ALT Ammonia Total Creatine Kinase CK-MB (CK-2) Troponin T 2.110 H* Total Protein Albumin Triglycerides Salicylates < 0.3 L Acetaminophen 5.0 L 11/03/21 11/03/21 11/03/21 04:36 04:36 14:59 MCV MCH RDW Plt Count Ste[place]s % (Auto) Sodium 135 L Chloride Carbon Dioxide BUN Creatinine 0.3 L Glucose 104 H Calcium AST 210 H ALT 136 H Ammonia Total Creatine Kinase 71471 H 70363 H CK-MB (CK-2) > 300.0 H Troponin T 2.290 H* Total Protein Albumin 3.3 L Triglycerides Salicylates Acetaminophen 11/04/21 11/05/21 11/06/21 06:46 06:56 04:27 MCV MCH RDW Plt Count Ste[place]s % (Auto) Sodium 136 L Chloride 107.8 H Carbon Dioxide 20 L BUN 8 L 8 L Creatinine 0.2 L 0.3 L 0.2 L Glucose Calcium 8.3 L 8.0 L AST 212 H 217 H ALT 138 H 134 H Ammonia Total Creatine Kinase 78145 H 06246 H 72353 H CK-MB (CK-2) Troponin T Total Protein Albumin 3.3 L 3.3 L Triglycerides Salicylates Acetaminophen Assessment and Plan Assessment and Plan 56 YO Male with ETOH Dependence complicated by Cirrhosis, Right Face Lipoma presents ED for evaluation. Patient reports "I am weak and I fell down the stairs". Patient states that he has experienced increased weakness over the pas t 1 month with persistent and worsening symptoms over the same timeframe. Patient reports that "my legs gave out" and he fell on stairs. - Patient Problems # Rhabdomyolysis - he is with recurrent fall for the last 6 months with frequent fall at home -denied acohol intake latley -denied hx of seizure or syncope -exam is remarkable for more pronounced proximal muscles weakness , no rash no tenderness -CPK initially is #07179-- today with hydration #79760 -elevated liver enzymes -possibility of myopathy can not be excluded inflammatory vs alcohol related -LDH is pending , ESR,CRP is pending -might need muscle biopsy -Iv Hydration and check CPK trend -BUN/Cr#9/0.2 # slightly brisk upper extremities with possibility of added cervical mylopathy can not be excluded , in a setting of myopathy and or neuropathy - Suggest MRI cervical spine # NSTEMI (non-ST elevated myocardial infarction) -Type II NSTEMI:Cardiology team consulted, - serial cardiac enzymes, EKG, echocardiogram ordered and is pending at time of admission. Supportive care. - Suspect likely secondary to rhabdomyolysis. We will continue serial cardiac enzyme measurement to evaluate for resolution with treatment of rhabdomyolysis. # Alcohol dependence -Thiamine, folic acid, multivitamin daily, [facility] protocol. -UDS is unremarkable -he denied alcohol intake !!! # Cirrhosis -Supportive care. Outpatient GI follow-up. # right facial lipoma -progressivly enlarged over the last few years -need surgical evaluation # left shoulder dislocation -with weakness left upper arm and limited motion and pain -Xry left shoulder -orthopedic evaluation # DVT prophylaxis -SCD to bilateral lower extremities while in bed will follow
--- NOTE | 2021-11-06 14:08 | Progress Note ---
Assessment and Plan Patient is a 56-year-old male who states his only past medical history is an inflamed liver which he states he was diagnosed with about 7 months who presents to the ED today with a complaint of falls and weakness which has been going on for several months. Falls Weakness NSTEMI type 2 Rhabdomyolysis Transaminitis Echo 11/02/2021-EF 40 to 45%. Mild global hypokinesis of LV. Mild diastolic dysfunction present impaired relaxation pattern. Mild mitral regurgitation Plan: From a cardiac perspective patient remains clinically stable. No evidence of an acute coronary syndrome at this point. Patient remains asymptomatic. Continue IV fluids. Suspect NSTEMI type II in setting of rhabdomyolysis No ANDREW, ARB, or beta-damian due to soft bp Continue present management Patient in conjunction with Dr. Layton who agrees with this plan of care. - Patient Problems (1) Type 2 myocardial infarction Current Visit: Yes Status: Acute (2) Elevated troponin Current Visit: Yes Status: Acute (3) Fall Current Visit: Yes Status: Acute (4) Rhabdomyolysis Current Visit: Yes Status: Acute Qualifiers: Encounter type: initial encounter (5) Transaminitis Current Visit: Yes Status: Acute Subjective Date of service: 11/06/21 Principal diagnosis: Rhabdomyolysis Interval history: Patient sitting in bed in no acute distress. Patient reports feeling better Sinus 90s on monitor Objective Vital Signs Temp Pulse Resp BP Pulse Ox 11/06/21 12:12 98.3 F 83 16 111/44 89 11/06/21 07:59 98.7 F 91 H 18 100/59 99 11/06/21 03:37 98.0 F 90 12 106/60 100 11/06/21 00:00 84 11/05/21 23:19 98.5 F 83 18 96/51 100 11/05/21 23:00 99 11/05/21 19:19 98.5 F 89 16 96/54 100 11/05/21 16:46 99.3 F 89 18 106/60 100 - Physical Examination General: No Apparent Distress HEENT: Positive: PERRL, Normocephaly, Other (mass on face) Neck: Positive: trachea midline Cardiac: Positive: Reg Rate and Rhythm Lungs: Positive: Normal Breath Sounds Neuro: Positive: Grossly Intact Abdomen: Positive: Soft Skin: Negative: Rash, Suspicious Lesions, Ulceration Extremities: Present: upper extr. pulses. Absent: edema - Labs and Meds Comprehensive Metabolic Panel 11/06/21 Range/Units 04:27 Sodium 140 (137-145) mmol/L Potassium 4.0 (3.6-5.0) mmol/L Chloride 107.8 H (98-107) mmol/L Carbon Dioxide 20 L (22-30) mmol/L BUN 9 (9-20) mg/dL Creatinine 0.2 L (0.8-1.3) mg/dL Glucose 82 (75-100) mg/dL Calcium 8.0 L (8.4-10.2) mg/dL - Imaging and Cardiology EKG: report reviewed, image reviewed Echo: report reviewed - Telemetry EKG Rhythm: Sinus Rhythm - EKG Sinus rhythms and dysrhythmias: sinus rhythm
[2021-11-06 15:50] LABS: C-Reactive Protein 2.2 mg/dL (0.00-1.30)
--- NOTE | 2021-11-06 16:04 | XRay Report ---
Left shoulder 3 views INDICATION: Weakness FINDINGS: Advanced degenerative change in left shoulder. There is severe joint space narrowing. Lucen cy is seen along the humeral head medially and fracture cannot be excluded. No dislocation is seen. Signer Name: Rolan Smith MD Signed: 11/06/2021 4:00 PM Workstation Name: [id number]
--- NOTE | 2021-11-06 16:19 | Progress Note ---
Assessment and Plan Assessment and plan: #Rhabdomyolysis -stable; will continue to trend -Continue IVFs, can discontinue when CK level is less than 5000 -Likely secondary to fall #Concern for possible myopathy Patient endorses symptoms of proximal muscle weakness Neurology consulted; appreciate recs. Pending MRI cervical spine Pending LDH, ESR, CRP Patient might require muscle biopsy for further management #NSTEMItype II -Troponin 2.110 -> 2.290 -With elevated CK, likely secondary to rhabdomyolysis -continue aspirin -Echocardiogram showed LVEF 40-45% with mild diastolic dysfunction -Cardiology consulted, no acute intervention needed at this time #Elevated liver enzymes -AST/ ALT elevated; alk phos and t.bili WNL -tylenol level low -acute Hepatitis panel negative -likely 2/2 to cirrhosis #History of cirrhosis -2/2 to alcohol abuse -GI follow up outpatient -not decompensated at this time #Alcohol dependence - Counseled patient on the importance of ETOH cessation. Assess patient's current ETOH consumption. Assisted with trying to arrange resources for patient to adequately work towards ETOH cessation. Patient expresses understanding. -Time: +10 mins #Discharge planning -PT evaluated patient determine need for subacute rehab, given lack of insurance patient agreeable to going home with home health and PT #Advanced care planning -Disease education conducted, care plan discussed, diagnoses discussed, prognosis discussed, and patient acknowledges understanding with care plan -Time: +30 min Disposition Plan: Continue medical management Total Time Spent with Patient (Minutes): 45 min History Interval history: No acute events overnight. Hospitalist Physical - Constitutional Vitals: Temp Pulse Resp BP Pulse Ox 98.3 F 83 16 111/44 89 11/06/21 12:12 11/06/21 12:12 11/06/21 12:12 11/06/21 12:12 11/06/21 12:12 General appearance: Present: no acute distress, other (lipoma of R cheek) - EENT Eyes: Present: PERRL, EOM intact ENT: hearing intact, clear oral mucosa, dentition normal - Neck Neck: Present: supple, normal ROM - Respiratory Respiratory effort: normal Respiratory: bilateral: CTA - Cardiovascular Rhythm: regular Heart Sounds: Present: S1 & S2 - Extremities Extremities: no ischemia, pulses intact, pulses symmetrical, No edema, normal t emperature, normal color, Full ROM Peripheral Pulses: within normal limits - Abdominal General gastrointestinal: soft, non-tender, non-distended, normal bowel sounds - Integumentary Integumentary: Present: clear, warm, dry - Psychiatric Psychiatric: appropriate mood/affect, cooperative - Neurologic Neurologic: CNII-XII intact, moves all extremities - Allied Health Allied health notes reviewed: nursing HEART Score - HEART Score Troponin: Troponin T 2.290 ng/mL (0.00-0.029) H* 11/03/21 04:36 Results - Labs CBC & Chem 7: 11/02/21 14:17 11/06/21 04:27 Labs: Laboratory Last Values WBC 6.6 K/mm3 (4.5-11.0) 11/02/21 14:17 RBC 4.84 M/mm3 (3.65-5.03) 11/02/21 14:17 Hgb 12.5 gm/dl (11.8-15.2) 11/02/21 14:17 Hct 39.4 % (35.5-45.6) 11/02/21 14:17 MCV 81 fl (84-94) L 11/02/21 14:17 MCH 26 pg (28-32) L 11/02/21 14:17 MCHC 32 % (32-34) 11/02/21 14:17 RDW 17.6 % (13.2-15.2) H 11/02/21 14:17 Plt Count 469 K/mm3 (140-440) H 11/02/21 14:17 Lymph % (Auto) 22.3 % (13.4-35.0) 11/02/21 14:17 Sandoval % (Auto) 12.5 % (0.0-7.3) H 11/02/21 14:17 Eos % (Auto) 3.2 % (0.0-4.3) 11/02/21 14:17 Baso % (Auto) 0.9 % (0.0-1.8) 11/02/21 14:17 Lymph # (Auto) 1.5 K/mm3 (1.2-5.4) 11/02/21 14:17 Sandoval # (Auto) 0.8 K/mm3 (0.0-0.8) 11/02/21 14:17 Eos # (Auto) 0.2 K/mm3 (0.0-0.4) 11/02/21 14:17 Baso # (Auto) 0.1 K/mm3 (0.0-0.1) 11/02/21 14:17 Seg Neutrophils % 61.1 % (40.0-70.0) 11/02/21 14:17 Seg Neutrophils # 4.0 K/mm3 (1.8-7.7) 11/02/21 14:17 ESR 48 mm/Hr (0-20) 11/06/21 14:44 PT 13.7 Sec. (12.2-14.9) 11/02/21 14:17 INR 0.95 (0.87-1.13) 11/02/21 14:17 APTT 35.5 Sec. (24.2-36.6) 11/02/21 14:17 Sodium 140 mmol/L (137-145) 11/06/21 04:27 Potassium 4.0 mmol/L (3.6-5.0) 11/06/21 04:27 Chloride 107.8 mmol/L (98-107) H 11/06/21 04:27 Carbon Dioxide 20 mmol/L (22-30) L 11/06/21 04:27 Anion Gap 16 mmol/L 11/06/21 04:27 BUN 9 mg/dL (9-20) 11/06/21 04:27 Creatinine 0.2 mg/dL (0.8-1.3) L 11/06/21 04:27 Estimated GFR > 60 ml/min 11/06/21 04:27 BUN/Creatinine Ratio 45 % 11/06/21 04:27 Glucose 82 mg/dL (75-100) 11/06/21 04:27 POC Glucose 98 mg/dL (70-105) 11/03/21 20:34 Lactic Acid 1.60 mmol/L (0.7-2.0) 11/02/21 14:17 Calcium 8.0 mg/dL (8.4-10.2) L 11/06/21 04:27 Total Bilirubin 0.20 mg/dL (0.1-1.2) 11/05/21 06:56 AST 217 units/L (5-40) H 11/05/21 06:56 ALT 134 units/L (7-56) H 11/05/21 06:56 Alkaline Phosphatase 72 units/L (35-129) 11/05/21 06:56 Ammonia 17.0 umol/L (25-60) L 11/02/21 14:17 Lactate Dehydrogenase 1223 units/L (91-180) H 11/06/21 14:44 Total Creatine Kinase 40170 units/L (55-170) H 11/06/21 04:27 CK-MB (CK-2) > 300.0 ng/mL (0.0-4.0) H 11/03/21 14:59 CK-MB (CK-2) Rel Index 2.1 (0-4) 11/03/21 14:59 Troponin T 2.290 ng/mL (0.00-0.029) H* 11/03/21 04:36 C-Reactive Protein 2.20 mg/dL (0.00-1.30) H 11/06/21 14:44 Total Protein 7.4 g/dL (6.3-8.2) 11/05/21 06:56 Albumin 3.3 g/dL (3.9-5) L 11/05/21 06:56 Albumin/Globulin Ratio 0.8 % 11/05/21 06:56 Triglycerides 183 mg/dL (2-149) H 11/02/21 14:17 Cholesterol 177 mg/dL (50-199) 11/02/21 14:17 LDL Cholesterol Direct 101 mg/dL (50-130) 11/02/21 14:17 HDL Cholesterol 43 mg/dL (40-59) 11/02/21 14:17 Cholesterol/HDL Ratio 4.11 % 11/02/21 14:17 Vitamin B12 289.2 pg/mL (211-911) 11/06/21 14:44 TSH 3.450 mlU/mL (0.270-4.200) 11/02/21 14:17 Urine Color Yellow (Yellow) 11/02/21 Unknown Urine Turbidity Clear (Clear) 11/02/21 Unknown Urine pH 6.0 (5.0-7.0) 11/02/21 Unknown Ur Specific [place] 1.016 (1.003-1.030) 11/02/21 Unknown Urine Protein <15 mg/dl mg/dL (Negative) 11/02/21 Unknown Urine Glucose (UA) Neg mg/dL (Negative) 11/02/21 Unknown Urine Ketones Neg mg/dL (Negative) 11/02/21 Unknown Urine Blood Sm (Negative) 11/02/21 Unknown Urine Nitrite Neg (Negative) 11/02/21 Unknown Urine Bilirubin Neg (Negative) 11/02/21 Unknown Urine Urobilinogen < 2.0 mg/dL (<2.0) 11/02/21 Unknown Ur Leukocyte Esterase Neg (Negative) 11/02/21 Unknown Urine WBC (Auto) < 1.0 /HPF (0.0-6.0) 11/02/21 Unknown Urine RBC (Auto) 1.0 /HPF (0.0-6.0) 11/02/21 Unknown Salicylates < 0.3 mg/dL (2.8-20.0) L 11/02/21 14:17 Acetaminophen 5.0 ug/mL (10.0-30.0) L 11/02/21 14:17 Plasma/Serum Alcohol < 0.01 % (0-0.07) 11/02/21 14:17 Hepatitis A IgM Ab Non-reactive (NonReactive) 11/04/21 06:46 Hep Bs Antigen Non-reactive (Negative) 11/04/21 06:46 Hep B Core IgM Ab Non-reactive (NonReactive) 11/04/21 06:46 Hepatitis C Antibody Non-reactive (NonReactive) 11/04/21 06:46 Cohen/IV: Voiding Method Urinal Active Medications - Current Medications Current Medications: Generic Name Dose Route Start Last Admin Trade Name Freq PRN Reason Stop Dose Admin Acetaminophen 650 mg 11/02/21 15:24 Acetaminophen 325 Mg Tab PO Q6H PRN Pain, Mild (1-3) Aspirin 325 mg 11/03/21 12:00 11/06/21 09:45 Aspirin 325 Mg Tab PO 325 mg QDAY [facility] Administration Folic Acid 1 mg 11/02/21 18:43 11/06/21 09:45 Folic Acid 1 Mg Tab PO 1 mg QDAY [facility] Administration Heparin Sodium (Porcine) 5,000 unit 11/04/21 14:00 11/06/21 14:30 Heparin 5,000 Unit/1 Ml Vial SUB-Q 5,000 unit Q8HR [facility] Administration Sodium Chloride 1,000 mls @ 200 mls/hr 11/02/21 15:30 11/06/21 09:47 Nacl 0.9% 1000 Ml IV 150 mls/hr DIRECT [facility] Administration Morphine Sulfate 2 mg 11/02/21 15:24 Morphine 4 Mg/1 Ml Inj IV Q6HR PRN Chest Pain unrelieved by NTG Multivitamins 1 each 11/02/21 18:43 11/06/21 09:45 Multivitamins ,Therapeutic Tab PO 1 each QDAY [facility] Administration Nitroglycerin 0.4 mg 11/02/21 15:24 Nitroglycerin 0.4 Mg Tab Subl SL Q5M PRN Chest Pain Sodium Chloride 10 ml 11/02/21 15:24 11/06/21 09:45 Sodium Chloride 0.9% 10 Ml Flush Syringe IV 10 ml PRN PRN Administration LINE FLUSH Thiamine HCl 100 mg 11/02/21 18:43 11/06/21 09:45 Thiamine 100 Mg Tab PO 100 mg QDAY [facility] Administration Tramadol HCl 50 mg 11/02/21 15:24 11/02/21 22:45 Tramadol 50 Mg Tab PO 50 mg Q6H PRN Administration Pain, Moderate (4-6)
--- NOTE | 2021-11-06 18:12 | Magnetic Resonance Report ---
MRI CERVICAL SPINE 11/06/2021 INDICATION / CLINICAL INFORMATION: Cervical Mylopathy. COMPARISON: CT cervical spine 11/02/2021 FINDINGS: GENERAL OBSERVATIONS: Unenhanced MR images of the cervical spine were obtained. There is no evidence of canal stenosis. There is no evidence of spinal cord compression. On the T2 and STIR sequences, there is some patchy T2-weighted signal change on the sagittal images, without definite correlate on the axial images. This may be the result of some slight motion artifact , although signal change within the cord AP present, and could be associated with demyelination or is chemia. Correlation with details of the clinical circumstances will be helpful for further evaluation of this potentially significant finding. [id number] ANALYSIS: C7-T1: Unremarkable. C6-7: Mild symmetric diffuse disc bulging. C5-6: Mild symmetric diffuse disc bulging. C4-5: Mild symmetric diffuse disc bulging. C3-4: Moderate symmetric diffuse disc bulging. C2-3: Unremarkable. CRANIO-CERVICAL JUNCTION: Unremarkable. BONE MARROW: Degenerative changes, primarily at the C5 and C6 levels. PARASPINAL SOFT TISSUES: No significant abnormality. IMPRESSION: Possible T2-weighted signal change within the cervical spinal cord, although the possibility of some motion artifact or superimposed motion artifact must also be considered. See above discussion. Mild degenerative changes with no evidence of focal disc herniation. Signer Name: Dennis Slaughter MD Signed: 11/06/2021 6:08 PM Workstation Name: [id number]
[2021-11-07] MEDS: SODIUM CHLORIDE 0.9% 1000 ML 1,000 ML IV SCH ×2 (02:30→06:49)
[2021-11-07] MEDS: HEPARIN 5,000 UNIT/1 ML VIAL SUB-Q SCH ×3 (06:49→22:25)
--- NOTE | 2021-11-07 11:02 | Progress Note ---
Assessment and Plan Assessment and Plan 56 YO Male with ETOH Dependence complicated by Cirrhosis, Right Face Lipoma presents ED for evaluation. Patient reports "I am weak and I fell down the stairs". Patient states that he has experienced increased weakness over the past 1 month with persistent and worsening symptoms over the same timeframe. Patient reports that "my legs gave out" and he fell on stairs. - Patient Problems # Rhabdomyolysis - he is with recurrent fall for the last 6 months -denied alcohol intake lately -denied hx of seizure or syncope -exam is remarkable for more pronounced proximal muscles weakness , no rash no tenderness -CPK initially is #17137-- today with hydration #53356 --#[id number] -elevated liver enzymes -possibility of myopathy can not be excluded inflammatory - Consider muscle biopsy and rheumatology follow up -BUN/Cr#9/0.2 - will try MRI LEG to look for myopathy . # slightly brisk upper extremities with possibility of added cervical mylopathy can not be excluded , in a setting of myopathy and or neuropathy - Suggest MRI cervical spine- is remarkable for possible demylination/ artifact -study is to be repeated with Gd for brain and neck # NSTEMI (non-ST elevated myocardial infarction) -Type II NSTEMI:Cardiology team consulted, - serial cardiac enzymes, EKG, echocardiogram ordered and is pending at time of admission. Supportive care. - Suspect likely secondary to rhabdomyolysis. We will continue serial cardiac enzyme measurement to evaluate for resolution with treatment of rhabdomyolysis. # Alcohol dependence/ according to pt. he did not have a drink in a while -Thiamine, folic acid, multivitamin daily, CIWA protocol. -UDS is unremarkable -he denied alcohol intake !!! # Cirrhosis -Supportive care. Outpatient GI follow-up. # right facial lipoma -progressivly enlarged over the last few years -need surgical evaluation # left shoulder dislocation -with weakness left upper arm and limited motion and pain -Xry left shoulder is remarkable for advanced degeneration,with lucency on humor head ? fracture can not be excluded -orthopedic evaluation -consider malignancy with met. work up !!!! # DVT prophylaxis -SCD to bilateral lower extremities while in bed suggest 1- start steroid 60 mg daily 2- need malignancy work up 3- orthopedic evaluate left shoulder 4- will order MRI thigh r/o inflammatory myopathy 5- consider muscle biopsy if possible and rheumatology evaluation 6- Pt therapy 7- Hydration and CK trend will follow as needed Subjective Date of service: 11/07/21 Principal diagnosis: Rhabdomyolysis Interval history: pt. status is unchanged still with diffuse weakness MRI crevical is noted repeat MRI brain and cervical spine with Gd are pending -will review CPK still elevated >57410 LDH is >1223 ESR#40 CRP#2.2 Objective - Vital Sign Vital Signs - 12hr 11/06/21 11/07/21 11/07/21 23:56 00:00 02:16 Temperature 98.1 F Pulse Rate 94 H 94 H Respiratory 20 Rate Blood Pressure 108/56 O2 Sat by Pulse 99 98 Oximetry 11/07/21 11/07/21 04:46 07:47 Temperature 98.1 F 98.1 F Pulse Rate 94 H 90 Respiratory 20 18 Rate Blood Pressure 115/52 108/64 O2 Sat by Pulse 100 98 Oximetry - General Apperance Constitutional: comfortable - EENT EENT: PERRL, mucous membranes moist - Respiratory Respiratory: lungs clear, rhonchi - Cardiovascular Cardiovascular: regular rate, normal S1, normal S2 Extremities: no peripheral edema bilat, no clubbing, cyanosis - Gastrointestinal Gastrointestinal: normoactive bowel sounds - Integumentary Integumentary: normal - Neurologic Cranial nerve examination: PERRL, EOMI, intact Speech examination: intact Detailed motor examination: other (diffuse weakness more localized proximal upper and lower with difficulty ambulation, reflexes are suppressed ) - Laboratory Findings CBC and BMP: 11/02/21 14:17 11/06/21 04:27 Abnormal Lab Findings: Abnormal Labs 11/02/21 11/02/21 11/02/21 14:17 14:17 14:17 MCV 81 L MCH 26 L RDW 17.6 H Plt Count 469 H [place] % (Auto) 12.5 H Sodium 135 L Chloride Carbon Dioxide BUN Creatinine 0.3 L Glucose Calcium AST 241 H ALT 150 H Ammonia 17.0 L Lactate Dehydrogenase Total Creatine Kinase 67833 H CK-MB (CK-2) Troponin T 2.360 H* C-Reactive Protein Total Protein 8.3 H Albumin 3.6 L Triglycerides 183 H Salicylates Acetaminophen 11/02/21 11/02/21 11/02/21 14:17 14:17 23:17 MCV MCH RDW Plt Count [place] % (Auto) Sodium Chloride Carbon Dioxide BUN Creatinine Glucose Calcium AST ALT Ammonia Lactate Dehydrogenase Total Creatine Kinase CK-MB (CK-2) Troponin T 2.110 H* C-Reactive Protein Total Protein Albumin Triglycerides Salicylates < 0.3 L Acetaminophen 5.0 L 11/03/21 11/03/21 11/03/21 04:36 04:36 14:59 MCV MCH RDW Plt Count [place] % (Auto) Sodium 135 L Chloride Carbon Dioxide BUN Creatinine 0.3 L Glucose 104 H Calcium AST 210 H ALT 136 H Ammonia Lactate Dehydrogenase Total Creatine Kinase 87430 H 92497 H CK-MB (CK-2) > 300.0 H Troponin T 2.290 H* C-Reactive Protein Total Protein Albumin 3.3 L Triglycerides Salicylates Acetaminophen 11/04/21 11/05/21 11/06/21 06:46 06:56 04:27 MCV MCH RDW Plt Count [place] % (Auto) Sodium 136 L Chloride 107.8 H Carbon Dioxide 20 L BUN 8 L 8 L Creatinine 0.2 L 0.3 L 0.2 L Glucose Calcium 8.3 L 8.0 L AST 212 H 217 H ALT 138 H 134 H Ammonia Lactate Dehydrogenase Total Creatine Kinase 56737 H 97129 H 79508 H CK-MB (CK-2) Troponin T C-Reactive Protein Total Protein Albumin 3.3 L 3.3 L Triglycerides Salicylates Acetaminophen 11/06/21 11/06/21 11/07/21 14:44 14:44 08:01 MCV MCH RDW Plt Count [place] % (Auto) Sodium Chloride Carbon Dioxide BUN Creatinine Glucose Calcium AST ALT Ammonia 24.0 L Lactate Dehydrogenase 1223 H Total Creatine Kinase 94187 H CK-MB (CK-2) Troponin T C-Reactive Protein 2.20 H Total Protein Albumin Triglycerides Salicylates Acetaminophen
--- NOTE | 2021-11-07 11:04 | Progress Note ---
Assessment and Plan Patient is a 56-year-old male who states his only past medical history is an inflamed liver which he states he was diagnosed with about 7 months who presents to the ED today with a complaint of falls and weakness which has been going on for several months. Falls Weakness NSTEMI type 2 Rhabdomyolysis Transaminitis Echo 11/02/2021-EF 40 to 45%. Mild global hypokinesis of LV. Mild diastolic dysfunction present impaired relaxation pattern. Mild mitral regurgitation Plan: From a cardiac perspective patient remains clinically stable. No evidence of an acute coronary syndrome at this point. Patient remains asymptomatic. Continue IV fluids. Suspect NSTEMI type II in setting of rhabdomyolysis No ANDREW, ARB, or beta-damian due to soft bp Continue present management Patient in conjunction with Dr. Layton who agrees with this plan of care. - Patient Problems (1) Type 2 myocardial infarction Current Visit: Yes Status: Acute (2) Elevated troponin Current Visit: Yes Status: Acute (3) Fall Current Visit: Yes Status: Acute (4) Rhabdomyolysis Current Visit: Yes Status: Acute Qualifiers: Qualified Code(s): T79.6XXA - Traumatic ischemia of muscle, initial encounter (5) Transaminitis Current Visit: Yes Status: Acute Subjective Date of service: 11/07/21 Principal diagnosis: Rhabdomyolysis Interval history: Patient for MRI this AM Sinus 80s on monitor Objective Vital Signs Temp Pulse Resp BP Pulse Ox 11/07/21 07:47 98.1 F 90 18 108/64 98 11/07/21 04:46 98.1 F 94 H 20 115/52 100 11/07/21 02:16 98 11/07/21 00:00 94 H 11/06/21 23:56 98.1 F 94 H 20 108/56 99 11/06/21 19:41 98.4 F 98 H 20 103/41 99 11/06/21 16:00 97 11/06/21 12:12 98.3 F 83 16 111/44 89 11/06/21 12:00 83 - Physical Examination General: No Apparent Distress HEENT: Positive: PERRL, Normocephaly, Other (mass on face) Neck: Positive: trachea midline Cardiac: Positive: Reg Rate and Rhythm Lungs: Positive: Normal Breath Sounds Neuro: Positive: Grossly Intact Abdomen: Positive: Soft Skin: Negative: Rash, Suspicious Lesions, Ulceration Extremities: Present: upper extr. pulses. Absent: edema - Labs and Meds Cardiac Enzymes 11/06/21 Range/Units 14:44 Lactate Dehydrogenase 1223 H (91-180) units/L - Imaging and Cardiology EKG: report reviewed, image reviewed Echo: report reviewed - EKG Sinus rhythms and dysrhythmias: sinus rhythm
--- NOTE | 2021-11-07 11:48 | Magnetic Resonance Report ---
MRI CERVICAL SPINE WITH CONTRAST INDICATION / CLINICAL INFORMATION: cancer metastesis, BILAT SHOULDER PAIN. TECHNIQUE: Multisequence, multiplanar images of the cervical spine were obtained. COMPARISON: MRI cervical spine without contrast 11/06/2021. FINDINGS: Following administration of intravenous contrast material enhancement of normal cervical epidural bisi ous plexus is noted. No regions of abnormal contrast enhancement are identified. Specifically, no abn ormal contrast enhancement is seen within the cervical spinal cord. IMPRESSION: 1. No indication of abnormal contrast enhancement involving the cervical spinal cord or epidural spac e. Signer Name: Dirk Adan MD Signed: 11/07/2021 11:44 AM Workstation Name: [id number]
--- NOTE | 2021-11-07 14:03 | Magnetic Resonance Report ---
MRI BRAIN WITHOUT AND WITH CONTRAST INDICATION / CLINICAL INFORMATION: Seizure disorder. TECHNIQUE: Multiplanar, multisequence MR images of the brain were obtained. Contrast: Clairscan: 16 ml, administered intravenously. COMPARISON: Head CT 11/02/2021 FINDINGS: BRAIN / INTRACRANIAL CONTENTS: Ventricles and cortical sulci are normal in size and configuration. Th ere is no mass effect. No evidence of intracranial hemorrhage or extra-axial fluid collection is seen . Mild Periventricular white matter hyperintensity is noted. In addition a moderate number of deep an d subcortical white matter hyperintensities are identified in both cerebral hemispheres. These are no nspecific findings which likely reflect presence of microvascular ischemic change. No additional afshin ons of abnormal brain parenchymal signal intensity are identified. There is no indication of remote c ortical infarction. Diffusion weighted scans are negative. There is no indication of acute ischemic i njury. Medial temporal lobes have an unremarkable appearance. The brainstem and cerebellum have an unremarkable appearance. MIDLINE STRUCTURES:No abnormalities are seen to involve the pituitary gland. Pineal region has an unr emarkable appearance. CRANIOCERVICAL JUNCTION: No abnormalities are identified at the craniocervical junction. VASCULAR FLOW-VOIDS: Normal flow-voids are present within the major intracranial vessels. ORBITS: The orbits have an unremarkable appearance. SINUSES / MASTOIDS: There is no indication of inflammatory disease in the paranasal sinuses or mastoi d air cells. A huge lipoma is present in the right cheek. Following the administration of intravenous contrast enhancement of normal vascular structures is dem onstrated. No areas of abnormal contrast enhancement are identified. IMPRESSION: 1. No significant intercranial abnormality on MRI brain performed without and with intravenous contra st. 2. Large lipoma right cheek. Signer Name: Dirk Adan MD Signed: 11/07/2021 1:58 PM Workstation Name: [id number]
--- NOTE | 2021-11-07 16:48 | Progress Note ---
Assessment and Plan Assessment and plan: #Rhabdomyolysis -stable; will continue to trend -Continue IVFs, can discontinue when CK level is less than 5000 -Likely secondary to fall #Concern for possible myopathy Patient endorses symptoms of proximal muscle weakness Neurology consulted; appreciate recs. Pending MRI cervical spine Pending LDH, ESR, CRP Patient might require muscle biopsy for further management #NSTEMItype II -Troponin 2.110 -> 2.290 -With elevated CK, likely secondary to rhabdomyolysis -continue aspirin -Echocardiogram showed LVEF 40-45% with mild diastolic dysfunction -Cardiology consulted, no acute intervention needed at this time #Elevated liver enzymes -AST/ ALT elevated; alk phos and t.bili WNL -tylenol level low -acute Hepatitis panel negative -likely 2/2 to cirrhosis #History of cirrhosis -2/2 to alcohol abuse -GI follow up outpatient -not decompensated at this time #Alcohol dependence - Counseled patient on the importance of ETOH cessation. Assess patient's current ETOH consumption. Assisted with trying to arrange resources for patient to adequately work towards ETOH cessation. Patient expresses understanding. -Time: +10 mins #Discharge planning -PT evaluated patient determine need for subacute rehab, given lack of insurance patient agreeable to going home with home health and PT #Advanced care planning -Disease education conducted, care plan discussed, diagnoses discussed, prognosis discussed, and patient acknowledges understanding with care plan -Time: +30 min Disposition Plan: Continue medical management Total Time Spent with Patient (Minutes): 30 minutes History Interval history: No acute events overnight. Hospitalist Physical - Constitutional Vitals: Temp Pulse Resp BP Pulse Ox 98.1 F 90 18 108/64 98 11/07/21 07:47 11/07/21 07:47 11/07/21 07:47 11/07/21 07:47 11/07/21 07:47 General appearance: Present: no acute distress, other (lipoma of R cheek) - EENT Eyes: Present: PERRL, EOM intact ENT: hearing intact, clear oral mucosa - Neck Neck: Present: supple, normal ROM - Respiratory Respiratory effort: normal Respiratory: bilateral: CTA - Cardiovascular Rhythm: regular Heart Sounds: Present: S1 & S2 - Extremities Extremities: no ischemia, pulses intact, pulses symmetrical, No edema, normal temperature, normal color Peripheral Pulses: within normal limits - Abdominal General gastrointestinal: soft, non-tender, non-distended, normal bowel sounds - Integumentary Integumentary: Present: clear, warm, dry - Psychiatric Psychiatric: appropriate mood/affect, intact judgment & insight, memory intact, cooperative - Neurologic Neurologic: CNII-XII intact, moves all extremities, other (Proximal muscle weakness) - Allied Health Allied health notes reviewed: nursing HEART Score - HEART Score Troponin: Troponin T 2.290 ng/mL (0.00-0.029) H* 11/03/21 04:36 Results - Labs CBC & Chem 7: 11/02/21 14:17 11/06/21 04:27 Labs: Laboratory Last Values WBC 6.6 K/mm3 (4.5-11.0) 11/02/21 14:17 RBC 4.84 M/mm3 (3.65-5.03) 11/02/21 14:17 Hgb 12.5 gm/dl (11.8-15.2) 11/02/21 14:17 Hct 39.4 % (35.5-45.6) 11/02/21 14:17 MCV 81 fl (84-94) L 11/02/21 14:17 MCH 26 pg (28-32) L 11/02/21 14:17 MCHC 32 % (32-34) 11/02/21 14:17 RDW 17.6 % (13.2-15.2) H 11/02/21 14:17 Plt Count 469 K/mm3 (140-440) H 11/02/21 14:17 Lymph % (Auto) 22.3 % (13.4-35.0) 11/02/21 14:17 [place] % (Auto) 12.5 % (0.0-7.3) H 11/02/21 14:17 Eos % (Auto) 3.2 % (0.0-4.3) 11/02/21 14:17 Baso % (Auto) 0.9 % (0.0-1.8) 11/02/21 14:17 Lymph # (Auto) 1.5 K/mm3 (1.2-5.4) 11/02/21 14:17 [place] # (Auto) 0.8 K/mm3 (0.0-0.8) 11/02/21 14:17 Eos # (Auto) 0.2 K/mm3 (0.0-0.4) 11/02/21 14:17 Baso # (Auto) 0.1 K/mm3 (0.0-0.1) 11/02/21 14:17 Seg Neutrophils % 61.1 % (40.0-70.0) 11/02/21 14:17 Seg Neutrophils # 4.0 K/mm3 (1.8-7.7) 11/02/21 14:17 ESR 48 mm/Hr (0-20) 11/06/21 14:44 PT 13.7 Sec. (12.2-14.9) 11/02/21 14:17 INR 0.95 (0.87-1.13) 11/02/21 14:17 APTT 35.5 Sec. (24.2-36.6) 11/02/21 14:17 Sodium 140 mmol/L (137-145) 11/06/21 04:27 Potassium 4.0 mmol/L (3.6-5.0) 11/06/21 04:27 Chloride 107.8 mmol/L (98-107) H 11/06/21 04:27 Carbon Dioxide 20 mmol/L (22-30) L 11/06/21 04:27 Anion Gap 16 mmol/L 11/06/21 04:27 BUN 9 mg/dL (9-20) 11/06/21 04:27 Creatinine 0.2 mg/dL (0.8-1.3) L 11/06/21 04:27 Estimated GFR > 60 ml/min 11/06/21 04:27 BUN/Creatinine Ratio 45 % 11/06/21 04:27 Glucose 82 mg/dL (75-100) 11/06/21 04:27 POC Glucose 98 mg/dL (70-105) 11/03/21 20:34 Lactic Acid 1.60 mmol/L (0.7-2.0) 11/02/21 14:17 Calcium 8.0 mg/dL (8.4-10.2) L 11/06/21 04:27 Total Bilirubin 0.20 mg/dL (0.1-1.2) 11/05/21 06:56 AST 217 units/L (5-40) H 11/05/21 06:56 ALT 134 units/L (7-56) H 11/05/21 06:56 Alkaline Phosphatase 72 units/L (35-129) 11/05/21 06:56 Ammonia 24.0 umol/L (25-60) L 11/06/21 14:44 Lactate Dehydrogenase 1223 units/L (91-180) H 11/06/21 14:44 Total Creatine Kinase 61262 units/L (55-170) H 11/07/21 08:01 CK-MB (CK-2) > 300.0 ng/mL (0.0-4.0) H 11/03/21 14:59 CK-MB (CK-2) Rel Index 2.1 (0-4) 11/03/21 14:59 Troponin T 2.290 ng/mL (0.00-0.029) H* 11/03/21 04:36 C-Reactive Protein 2.20 mg/dL (0.00-1.30) H 11/06/21 14:44 Total Protein 7.4 g/dL (6.3-8.2) 11/05/21 06:56 Albumin 3.3 g/dL (3.9-5) L 11/05/21 06:56 Albumin/Globulin Ratio 0.8 % 11/05/21 06:56 Triglycerides 183 mg/dL (2-149) H 11/02/21 14:17 Cholesterol 177 mg/dL (50-199) 11/02/21 14:17 LDL Cholesterol Direct 101 mg/dL (50-130) 11/02/21 14:17 HDL Cholesterol 43 mg/dL (40-59) 11/02/21 14:17 Cholesterol/HDL Ratio 4.11 % 11/02/21 14:17 Vitamin B12 289.2 pg/mL (211-911) 11/06/21 14:44 TSH 3.450 mlU/mL (0.270-4.200) 11/02/21 14:17 Urine Color Yellow (Yellow) 11/02/21 Unknown Urine Turbidity Clear (Clear) 11/02/21 Unknown Urine pH 6.0 (5.0-7.0) 11/02/21 Unknown Ur Specific [place] 1.016 (1.003-1.030) 11/02/21 Unknown Urine Protein <15 mg/dl mg/dL (Negative) 11/02/21 Unknown Urine Glucose (UA) Neg mg/dL (Negative) 11/02/21 Unknown Urine Ketones Neg mg/dL (Negative) 11/02/21 Unknown Urine Blood Sm (Negative) 11/02/21 Unknown Urine Nitrite Neg (Negative) 11/02/21 Unknown Urine Bilirubin Neg (Negative) 11/02/21 Unknown Urine Urobilinogen < 2.0 mg/dL (<2.0) 11/02/21 Unknown Ur Leukocyte Esterase Neg (Negative) 11/02/21 Unknown Urine WBC (Auto) < 1.0 /HPF (0.0-6.0) 11/02/21 Unknown Urine RBC (Auto) 1.0 /HPF (0.0-6.0) 11/02/21 Unknown Salicylates < 0.3 mg/dL (2.8-20.0) L 11/02/21 14:17 Acetaminophen 5.0 ug/mL (10.0-30.0) L 11/02/21 14:17 Plasma/Serum Alcohol < 0.01 % (0-0.07) 11/02/21 14:17 Hepatitis A IgM Ab Non-reactive (NonReactive) 11/04/21 06:46 Hep Bs Antigen Non-reactive (Negative) 11/04/21 06:46 Hep B Core IgM Ab Non-reactive (NonReactive) 11/04/21 06:46 Hepatitis C Antibody Non-reactive (NonReactive) 11/04/21 06:46 Cohen/IV: Voiding Method Urinal Active Medications - Current Medications Current Medications: Generic Name Dose Route Start Last Admin Trade Name Freq PRN Reason Stop Dose Admin Acetaminophen 650 mg 11/02/21 15:24 Acetaminophen 325 Mg Tab PO Q6H PRN Pain, Mild (1-3) Aspirin 325 mg 11/03/21 12:00 11/06/21 09:45 Aspirin 325 Mg Tab PO 325 mg QDAY PHYLLIS Administration Folic Acid 1 mg 11/02/21 18:43 11/06/21 09:45 Folic Acid 1 Mg Tab PO 1 mg QDAY PHYLLIS Administration Heparin Sodium (Porcine) 5,000 unit 11/04/21 14:00 11/07/21 06:49 Heparin 5,000 Unit/1 Ml Vial SUB-Q 5,000 unit Q8HR PHYLLIS Administration Sodium Chloride 1,000 mls @ 200 mls/hr 11/02/21 15:30 11/07/21 06:49 Nacl 0.9% 1000 Ml IV 150 mls/hr DIRECT PHYLLIS Administration Morphine Sulfate 2 mg 11/02/21 15:24 Morphine 4 Mg/1 Ml Inj IV Q6HR PRN Chest Pain unrelieved by NTG Multivitamins 1 each 11/02/21 18:43 11/06/21 09:45 Multivitamins ,Therapeutic Tab PO 1 each QDAY PHYLLIS Administration Nitroglycerin 0.4 mg 11/02/21 15:24 Nitroglycerin 0.4 Mg Tab Subl SL Q5M PRN Chest Pain Prednisone 60 mg 11/07/21 10:00 Prednisone 20 Mg Tab PO QDAY PHYLLIS Sodium Chloride 10 ml 11/02/21 15:24 11/06/21 09:45 Sodium Chloride 0.9% 10 Ml Flush Syringe IV 10 ml PRN PRN Administration LINE FLUSH Thiamine HCl 100 mg 11/02/21 18:43 11/06/21 09:45 Thiamine 100 Mg Tab PO 100 mg QDAY PHYLLIS Administration Tramadol HCl 50 mg 11/02/21 15:24 11/02/21 22:45 Tramadol 50 Mg Tab PO 50 mg Q6H PRN Administration Pain, Moderate (4-6)
[2021-11-07] MEDS: THIAMINE 100 MG TAB PO SCH (17:31)
[2021-11-07] MEDS: predniSONE 20 MG TAB PO SCH (17:31)
[2021-11-07] MEDS: MULTIVITAMINS ,THERAPEUTIC TAB PO SCH (17:32)
[2021-11-07] MEDS: FOLIC ACID 1 MG TAB PO SCH (17:32)
[2021-11-07] MEDS: traMADol 50 MG TAB PO PRN (17:32)
[2021-11-07] MEDS: ASPIRIN 325 MG TAB PO SCH (17:32)
[2021-11-07] MEDS: MECLIZINE 12.5 MG TAB PO SCH (22:24)
[2021-11-08] MEDS: MECLIZINE 12.5 MG TAB PO SCH ×2 (07:52→22:07)
[2021-11-08] MEDS: HEPARIN 5,000 UNIT/1 ML VIAL SUB-Q SCH ×3 (07:52→22:08)
--- NOTE | 2021-11-08 11:10 | Magnetic Resonance Report ---
MRI right thigh HISTORY: possible myositis , suggest MRI right thigh. TECHNIQUE: 15 mL of Clariscan was given intravenously. COMPARISON: None FINDINGS: There is mild generalized edema in the muscles of the entire right thigh and similar symme tric findings in the visualized left thigh. Questionable patchy minimal enhancement is also present o n the postcontrast series especially in the anterior compartment. There is no abscess or mass. No art ifact to suggest gas-forming fasciitis. There is a small amount of fluid tracking in the fascial plan es between the sartorius and there the vastus lateralis which is ultimately indeterminate, again with no abscess or hematoma. Mild degenerative changes are present in the pelvis with no acute osseous abnormality. There is no te ndon tear. No significant incidental soft tissue findings. A few shoddy right inguinal lymph nodes ar e present. IMPRESSION: Nonspecific soft tissue findings as outlined above. If there is concern for myositis and confirmation is required, this typically requires a surgical biopsy as opposed to a percutaneous bio psy given necessary sample size. Signer Name: Jesus Alberto Hassan MD Signed: 11/08/2021 11:05 AM Workstation Name: [id number]
[2021-11-08] MEDS: FOLIC ACID 1 MG TAB PO SCH (11:20)
[2021-11-08] MEDS: MULTIVITAMINS ,THERAPEUTIC TAB PO SCH (11:20)
[2021-11-08] MEDS: ASPIRIN 325 MG TAB PO SCH (11:20)
[2021-11-08] MEDS: predniSONE 20 MG TAB PO SCH (11:20)
[2021-11-08] MEDS: THIAMINE 100 MG TAB PO SCH (11:21)
--- NOTE | 2021-11-08 11:44 | Progress Note ---
Assessment and Plan Patient is a 56-year-old male who states his only past medical history is an inflamed liver which he states he was diagnosed with about 7 months who presents to the ED today with a complaint of falls and weakness which has been going on for several months. Falls Weakness NSTEMI type 2 Rhabdomyolysis Transaminitis Myopathy?-neuro following Echo 11/02/2021-EF 40 to 45%. Mild global hypokinesis of LV. Mild diastolic dysfunction present impaired relaxation pattern. Mild mitral regurgitation Plan: From a cardiac perspective patient remains clinically stable. No evidence of an acute coronary syndrome at this point. Patient remains asymptomatic. CK appears to be slowly improving. Continue IV fluids. Suspect NSTEMI type II in setting of rhabdomyolysis No ANDREW, ARB, or beta-damian due to soft bp Continue present management Patient in conjunction with Dr. Layton who agrees with this plan of care. - Patient Problems (1) Type 2 myocardial infarction Current Visit: Yes Status: Acute (2) Elevated troponin Current Visit: Yes Status: Acute (3) Fall Current Visit: Yes Status: Acute (4) Rhabdomyolysis Current Visit: Yes Status: Acute Qualifiers: Encounter type: initial encounter (5) Transaminitis Current Visit: Yes Status: Acute Subjective Date of service: 11/08/21 Principal diagnosis: Rhabdomyolysis Interval history: Patient for MRI this AM Sinus 80s-90s on monitor Objective Vital Signs Temp Pulse Resp Resp BP Pulse Ox 11/08/21 07:56 97.7 F 80 18 92/54 99 11/08/21 04:01 97 11/08/21 03:59 97 11/08/21 03:44 97.7 F 81 16 108/51 99 11/08/21 00:00 85 20 11/07/21 23:35 98.2 F 76 16 107/61 100 11/07/21 19:28 98.7 F 86 18 110/48 98 11/07/21 16:23 98.2 F 95 H 18 119/65 100 11/07/21 16:00 98 11/07/21 12:00 91 H - Physical Examination General: No Apparent Distress HEENT: Positive: PERRL, Normocephaly, Other (mass on face) Neck: Positive: trachea midline Cardiac: Positive: Reg Rate and Rhythm Lungs: Positive: Normal Breath Sounds Neuro: Positive: Grossly Intact Abdomen: Positive: Soft Skin: Negative: Rash, Suspicious Lesions, Ulceration Extremities: Present: upper extr. pulses. Absent: edema - Imaging and Cardiology EKG: report reviewed, image reviewed Echo: report reviewed - EKG Sinus rhythms and dysrhythmias: sinus rhythm
--- NOTE | 2021-11-08 12:49 | Progress Note ---
Assessment and Plan Assessment and plan: #Rhabdomyolysis Continue IVFs, can discontinue when CK level is less than 5000 -Likely secondary to fall #Concern for possible myopathy Patient endorses symptoms of proximal muscle weakness Neurology consulted; appreciate recs. Pending MRI cervical spine Pending LDH, ESR, CRP Patient might require muscle biopsy for further management #NSTEMItype II -Troponin 2.110 -> 2.290 -With elevated CK, likely secondary to rhabdomyolysis -continue aspirin -Echocardiogram showed LVEF 40-45% with mild diastolic dysfunction -Cardiology consulted, no acute intervention needed at this time #Elevated liver enzymes -AST/ ALT elevated; alk phos and t.bili WNL -tylenol level low -acute Hepatitis panel negative -likely 2/2 to cirrhosis #History of cirrhosis -2/2 to alcohol abuse -GI follow up outpatient -not decompensated at this time #Alcohol dependence - Counseled patient on the importance of ETOH cessation. Assess patient's current ETOH consumption. Assisted with trying to arrange resources for patient to adequately work towards ETOH cessation. Patient expresses understanding. -Time: +10 mins #Discharge planning -PT evaluated patient determine need for subacute rehab, given lack of insurance patient agreeable to going home with home health and PT #Advanced care planning -Disease education conducted, care plan discussed, diagnoses discussed, prognosis discussed, and patient acknowledges understanding with care plan -Time: +30 min Disposition Plan: Continue medical management Total Time Spent with Patient (Minutes): 45 minutes History Interval history: No acute events overnight. Hospitalist Physical - Constitutional Vitals: Temp Pulse Resp BP Pulse Ox 97.7 F 80 18 92/54 99 11/08/21 07:56 11/08/21 07:56 11/08/21 07:56 11/08/21 07:56 11/08/21 07:56 General appearance: Present: no acute distress, other (lipoma of R cheek) - EENT Eyes: Present: PERRL, EOM intact ENT: hearing intact, clear oral mucosa - Neck Neck: Present: supple, normal ROM - Respiratory Respiratory effort: normal Respiratory: bilateral: CTA - Cardiovascular Rhythm: regular Heart Sounds: Present: S1 & S2 - Extremities Extremities: no ischemia, pulses intact, pulses symmetrical, No edema, normal temperature, normal color Peripheral Pulses: within normal limits - Abdominal General gastrointestinal: soft, non-tender, non-distended, normal bowel sounds - Integumentary Integumentary: Present: clear, warm, dry - Psychiatric Psychiatric: appropriate mood/affect, intact judgment & insight, memory intact, cooperative - Neurologic Neurologic: CNII-XII intact, moves all extremities - Allied Health Allied health notes reviewed: nursing HEART Score - HEART Score Troponin: Troponin T 2.290 ng/mL (0.00-0.029) H* 11/03/21 04:36 Results - Labs CBC & Chem 7: 11/02/21 14:17 11/06/21 04:27 Labs: Laboratory Last Values WBC 6.6 K/mm3 (4.5-11.0) 11/02/21 14:17 RBC 4.84 M/mm3 (3.65-5.03) 11/02/21 14:17 Hgb 12.5 gm/dl (11.8-15.2) 11/02/21 14:17 Hct 39.4 % (35.5-45.6) 11/02/21 14:17 MCV 81 fl (84-94) L 11/02/21 14:17 MCH 26 pg (28-32) L 11/02/21 14:17 MCHC 32 % (32-34) 11/02/21 14:17 RDW 17.6 % (13.2-15.2) H 11/02/21 14:17 Plt Count 469 K/mm3 (140-440) H 11/02/21 14:17 Lymph % (Auto) 22.3 % (13.4-35.0) 11/02/21 14:17 [place] % (Auto) 12.5 % (0.0-7.3) H 11/02/21 14:17 Eos % (Auto) 3.2 % (0.0-4.3) 11/02/21 14:17 Baso % (Auto) 0.9 % (0.0-1.8) 11/02/21 14:17 Lymph # (Auto) 1.5 K/mm3 (1.2-5.4) 11/02/21 14:17 [place] # (Auto) 0.8 K/mm3 (0.0-0.8) 11/02/21 14:17 Eos # (Auto) 0.2 K/mm3 (0.0-0.4) 11/02/21 14:17 Baso # (Auto) 0.1 K/mm3 (0.0-0.1) 11/02/21 14:17 Seg Neutrophils % 61.1 % (40.0-70.0) 11/02/21 14:17 Seg Neutrophils # 4.0 K/mm3 (1.8-7.7) 11/02/21 14:17 ESR 48 mm/Hr (0-20) 11/06/21 14:44 PT 13.7 Sec. (12.2-14.9) 11/02/21 14:17 INR 0.95 (0.87-1.13) 11/02/21 14:17 APTT 35.5 Sec. (24.2-36.6) 11/02/21 14:17 Sodium 140 mmol/L (137-145) 11/06/21 04:27 Potassium 4.0 mmol/L (3.6-5.0) 11/06/21 04:27 Chloride 107.8 mmol/L (98-107) H 11/06/21 04:27 Carbon Dioxide 20 mmol/L (22-30) L 11/06/21 04:27 Anion Gap 16 mmol/L 11/06/21 04:27 BUN 9 mg/dL (9-20) 11/06/21 04:27 Creatinine 0.2 mg/dL (0.8-1.3) L 11/06/21 04:27 Estimated GFR > 60 ml/min 11/06/21 04:27 BUN/Creatinine Ratio 45 % 11/06/21 04:27 Glucose 82 mg/dL (75-100) 11/06/21 04:27 POC Glucose 98 mg/dL (70-105) 11/03/21 20:34 Lactic Acid 1.60 mmol/L (0.7-2.0) 11/02/21 14:17 Calcium 8.0 mg/dL (8.4-10.2) L 11/06/21 04:27 Total Bilirubin 0.20 mg/dL (0.1-1.2) 11/05/21 06:56 AST 217 units/L (5-40) H 11/05/21 06:56 ALT 134 units/L (7-56) H 11/05/21 06:56 Alkaline Phosphatase 72 units/L (35-129) 11/05/21 06:56 Ammonia 24.0 umol/L (25-60) L 11/06/21 14:44 Lactate Dehydrogenase 1223 units/L (91-180) H 11/06/21 14:44 Total Creatine Kinase 58326 units/L (55-170) H 11/08/21 05:38 CK-MB (CK-2) > 300.0 ng/mL (0.0-4.0) H 11/03/21 14:59 CK-MB (CK-2) Rel Index 2.1 (0-4) 11/03/21 14:59 Troponin T 2.290 ng/mL (0.00-0.029) H* 11/03/21 04:36 C-Reactive Protein 2.20 mg/dL (0.00-1.30) H 11/06/21 14:44 Total Protein 7.4 g/dL (6.3-8.2) 11/05/21 06:56 Albumin 3.3 g/dL (3.9-5) L 11/05/21 06:56 Albumin/Globulin Ratio 0.8 % 11/05/21 06:56 Triglycerides 183 mg/dL (2-149) H 11/02/21 14:17 Cholesterol 177 mg/dL (50-199) 11/02/21 14:17 LDL Cholesterol Direct 101 mg/dL (50-130) 11/02/21 14:17 HDL Cholesterol 43 mg/dL (40-59) 11/02/21 14:17 Cholesterol/HDL Ratio 4.11 % 11/02/21 14:17 Vitamin B12 289.2 pg/mL (211-911) 11/06/21 14:44 TSH 3.450 mlU/mL (0.270-4.200) 11/02/21 14:17 Urine Color Yellow (Yellow) 11/02/21 Unknown Urine Turbidity Clear (Clear) 11/02/21 Unknown Urine pH 6.0 (5.0-7.0) 11/02/21 Unknown Ur Specific [place] 1.016 (1.003-1.030) 11/02/21 Unknown Urine Protein <15 mg/dl mg/dL (Negative) 11/02/21 Unknown Urine Glucose (UA) Neg mg/dL (Negative) 11/02/21 Unknown Urine Ketones Neg mg/dL (Negative) 11/02/21 Unknown Urine Blood Sm (Negative) 11/02/21 Unknown Urine Nitrite Neg (Negative) 11/02/21 Unknown Urine Bilirubin Neg (Negative) 11/02/21 Unknown Urine Urobilinogen < 2.0 mg/dL (<2.0) 11/02/21 Unknown Ur Leukocyte Esterase Neg (Negative) 11/02/21 Unknown Urine WBC (Auto) < 1.0 /HPF (0.0-6.0) 11/02/21 Unknown Urine RBC (Auto) 1.0 /HPF (0.0-6.0) 11/02/21 Unknown Salicylates < 0.3 mg/dL (2.8-20.0) L 11/02/21 14:17 Acetaminophen 5.0 ug/mL (10.0-30.0) L 11/02/21 14:17 Plasma/Serum Alcohol < 0.01 % (0-0.07) 11/02/21 14:17 Hepatitis A IgM Ab Non-reactive (NonReactive) 11/04/21 06:46 Hep Bs Antigen Non-reactive (Negative) 11/04/21 06:46 Hep B Core IgM Ab Non-reactive (NonReactive) 11/04/21 06:46 Hepatitis C Antibody Non-reactive (NonReactive) 11/04/21 06:46 Cohen/IV: Voiding Method Urinal Active Medications - Current Medications Current Medications: Generic Name Dose Route Start Last Admin Trade Name Freq PRN Reason Stop Dose Admin Acetaminophen 650 mg 11/02/21 15:24 Acetaminophen 325 Mg Tab PO Q6H PRN Pain, Mild (1-3) Aspirin 325 mg 11/03/21 12:00 11/08/21 11:20 Aspirin 325 Mg Tab PO 325 mg QDAY PHYLLIS Administration Folic Acid 1 mg 11/02/21 18:43 11/08/21 11:20 Folic Acid 1 Mg Tab PO 1 mg QDAY PHYLLIS Administration Heparin Sodium (Porcine) 5,000 unit 11/04/21 14:00 11/08/21 07:52 Heparin 5,000 Unit/1 Ml Vial SUB-Q Not Given Q8HR PHYLLIS Sodium Chloride 1,000 mls @ 200 mls/hr 11/02/21 15:30 11/07/21 06:49 Nacl 0.9% 1000 Ml IV 150 mls/hr DIRECT PHYLLIS Administration Meclizine HCl 12.5 mg 11/07/21 18:00 11/08/21 07:52 Meclizine 12.5 Mg Tab PO Not Given Q12H PHYLLIS Morphine Sulfate 2 mg 11/02/21 15:24 Morphine 4 Mg/1 Ml Inj IV Q6HR PRN Chest Pain unrelieved by NTG Multivitamins 1 each 11/02/21 18:43 11/08/21 11:20 Multivitamins ,Therapeutic Tab PO 1 each QDAY PHYLLIS Administration Nitroglycerin 0.4 mg 11/02/21 15:24 Nitroglycerin 0.4 Mg Tab Subl SL Q5M PRN Chest Pain Prednisone 60 mg 11/07/21 10:00 11/08/21 11:20 Prednisone 20 Mg Tab PO 60 mg QDAY PHYLLIS Administration Sodium Chloride 10 ml 11/02/21 15:24 11/06/21 09:45 Sodium Chloride 0.9% 10 Ml Flush Syringe IV 10 ml PRN PRN Administration LINE FLUSH Thiamine HCl 100 mg 11/02/21 18:43 11/08/21 11:21 Thiamine 100 Mg Tab PO 100 mg QDAY PHYLLIS Administration Tramadol HCl 50 mg 11/02/21 15:24 11/07/21 17:32 Tramadol 50 Mg Tab PO 50 mg Q6H PRN Administration Pain, Moderate (4-6)
--- NOTE | 2021-11-08 13:37 | Progress Note ---
Assessment and Plan Assessment and Plan 56 YO Male with ETOH Dependence complicated by Cirrhosis, Right Face Lipoma presents ED for evaluation. Patient reports "I am weak and I fell down the stairs". Patient states that he has experienced increased weakness over the past 1 month with persistent and worsening symptoms over the same timeframe. Patient reports that "my legs gave out" and he fell on stairs. - Patient Problems # Rhabdomyolysis - he is with recurrent fall for the last 6 months -denied alcohol intake lately -denied hx of seizure or syncope -exam is remarkable for more pronounced proximal muscles weakness , no rash no tenderness -CPK initially is #07257-- today with hydration #36327 --#[id number]--- today [id number]{ Started on steroid} -elevated liver enzymes -possibility of myopathy can not be excluded inflammatory - Muscle biopsy if possible -Rheumatology follow up - MRI LEG is remarkable for inflammation with inflammatory myositis can not be excluded # slightly brisk upper extremities with possibility of added cervical mylopathy can not be excluded , in a setting of myopathy and or neuropathy - Suggest MRI cervical spine- is remarkable for possible demylination/ artifact -study is to be repeated with Gd for brain and neck are unremarkable # NSTEMI (non-ST elevated myocardial infarction) -Type II NSTEMI:Cardiology team consulted, - serial cardiac enzymes, EKG, echocardiogram ordered and is pending at time of admission. Supportive care. - Suspect likely secondary to rhabdomyolysis. We will continue serial cardiac enzyme measurement to evaluate for resolution with treatment of rhabdomyolysis. # Alcohol dependence/ according to pt. he did not have a drink in a while -Thiamine, folic acid, multivitamin daily, CIWA protocol. -UDS is unremarkable -he denied alcohol intake !!! # Cirrhosis -Supportive care. Outpatient GI follow-up. # right facial lipoma -progressivly enlarged over the last few years -need surgical evaluation # left shoulder dislocation -with weakness left upper arm and limited motion and pain -Xry left shoulder is remarkable for advanced degeneration,with lucency on humor head ? fracture can not be excluded -orthopedic evaluation -consider malignancy with met. work up !!!! # DVT prophylaxis -SCD to bilateral lower extremities while in bed suggest 1- Maintain steroid 60 mg daily 2- need malignancy work up 3- orthopedic evaluate left shoulder 4- consider muscle biopsy if possible and rheumatology evaluation 6- Pt therapy 7- Hydration and CK trend will sign off Subjective Date of service: 11/08/21 Principal diagnosis: Rhabdomyolysis Interval history: pt. status is unchanged still with diffuse weakness MRI crevical is noted repeat MRI brain and cervical spine with Gd are unremarkable CPK is trending down today at#[id number] LDH is >1223 ESR#40 CRP#2.2 MRI thigh is remarkable for edema and mild enhancement with possibility of inflammatory myopathy can not be excluded Objective - Vital Sign Vital Signs - 12hr 11/08/21 11/08/21 11/08/21 03:44 03:59 04:01 Temperature 97.7 F Pulse Rate 81 Respiratory 16 Rate Blood Pressure 108/51 O2 Sat by Pulse 99 97 97 Oximetry 11/08/21 07:56 Temperature 97.7 F Pulse Rate 80 Respiratory 18 Rate Blood Pressure 92/54 O2 Sat by Pulse 99 Oximetry - General Apperance Constitutional: comfortable - EENT EENT: PERRL, mucous membranes moist - Respiratory Respiratory: chest non-tender, lungs clear, rhonchi - Cardiovascular Cardiovascular: regular rate, normal S1, normal S2 Extremities: no peripheral edema bilat, no clubbing, cyanosis - Gastrointestinal Gastrointestinal: normoactive bowel sounds - Integumentary Integumentary: normal - Neurologic Cranial nerve examination: PERRL, EOMI, intact Speech examination: intact Detailed motor examination: other (diffuse weakness more noted proximally bilateral upper and lower , no clonus , gait is unsteady) - Laboratory Findings CBC and BMP: 11/02/21 14:17 11/06/21 04:27 Abnormal Lab Findings: Abnormal Labs 11/02/21 11/02/21 11/02/21 14:17 14:17 14:17 MCV 81 L MCH 26 L RDW 17.6 H Plt Count 469 H [place] % (Auto) 12.5 H Sodium 135 L Chloride Carbon Dioxide BUN Creatinine 0.3 L Glucose Calcium AST 241 H ALT 150 H Ammonia 17.0 L Lactate Dehydrogenase Total Creatine Kinase 36881 H CK-MB (CK-2) Troponin T 2.360 H* C-Reactive Protein Total Protein 8.3 H Albumin 3.6 L Triglycerides 183 H Salicylates Acetaminophen 11/02/21 11/02/21 11/02/21 14:17 14:17 23:17 MCV MCH RDW Plt Count [place] % (Auto) Sodium Chloride Carbon Dioxide BUN Creatinine Glucose Calcium AST ALT Ammonia Lactate Dehydrogenase Total Creatine Kinase CK-MB (CK-2) Troponin T 2.110 H* C-Reactive Protein Total Protein Albumin Triglycerides Salicylates < 0.3 L Acetaminophen 5.0 L 11/03/21 11/03/21 11/03/21 04:36 04:36 14:59 MCV MCH RDW Plt Count [place] % (Auto) Sodium 135 L Chloride Carbon Dioxide BUN Creatinine 0.3 L Glucose 104 H Calcium AST 210 H ALT 136 H Ammonia Lactate Dehydrogenase Total Creatine Kinase 13105 H 40147 H CK-MB (CK-2) > 300.0 H Troponin T 2.290 H* C-Reactive Protein Total Protein Albumin 3.3 L Triglycerides Salicylates Acetaminophen 11/04/21 11/05/21 11/06/21 06:46 06:56 04:27 MCV MCH RDW Plt Count [place] % (Auto) Sodium 136 L Chloride 107.8 H Carbon Dioxide 20 L BUN 8 L 8 L Creatinine 0.2 L 0.3 L 0.2 L Glucose Calcium 8.3 L 8.0 L AST 212 H 217 H ALT 138 H 134 H Ammonia Lactate Dehydrogenase Total Creatine Kinase 94783 H 43132 H 73772 H CK-MB (CK-2) Troponin T C-Reactive Protein Total Protein Albumin 3.3 L 3.3 L Triglycerides Salicylates Acetaminophen 11/06/21 11/06/21 11/07/21 14:44 14:44 08:01 MCV MCH RDW Plt Count [place] % (Auto) Sodium Chloride Carbon Dioxide BUN Creatinine Glucose Calcium AST ALT Ammonia 24.0 L Lactate Dehydrogenase 1223 H Total Creatine Kinase 21730 H CK-MB (CK-2) Troponin T C-Reactive Protein 2.20 H Total Protein Albumin Triglycerides Salicylates Acetaminophen 11/08/21 05:38 MCV MCH RDW Plt Count [place] % (Auto) Sodium Chloride Carbon Dioxide BUN Creatinine Glucose Calcium AST ALT [place] Lactate Dehydrogenase Total Creatine Kinase 75595 H CK-MB (CK-2) Troponin T C-Reactive Protein Total Protein Albumin Triglycerides Salicylates Acetaminophen
[2021-11-08] MEDS: SODIUM CHLORIDE 0.9% 1000 ML 1,000 ML IV SCH ×2 (18:01→22:08)
[2021-11-09] MEDS: MECLIZINE 12.5 MG TAB PO SCH ×2 (07:38→21:53)
[2021-11-09] MEDS: SODIUM CHLORIDE 0.9% 1000 ML 1,000 ML IV SCH (07:38)
[2021-11-09] MEDS: HEPARIN 5,000 UNIT/1 ML VIAL SUB-Q SCH ×3 (07:38→21:53)
[2021-11-09] MEDS: THIAMINE 100 MG TAB PO SCH (11:27)
[2021-11-09] MEDS: ASPIRIN 325 MG TAB PO SCH (11:27)
[2021-11-09] MEDS: FOLIC ACID 1 MG TAB PO SCH (11:27)
[2021-11-09] MEDS: predniSONE 20 MG TAB PO SCH (11:27)
[2021-11-09] MEDS: MULTIVITAMINS ,THERAPEUTIC TAB PO SCH (11:27)
--- NOTE | 2021-11-09 13:30 | Progress Note ---
Assessment and Plan NSTEMI in setting of Rhabdomyelitis * Patient is currently chest pain-free. Twelve-lead shows no acute ischemic changes. Troponins are significantly elevated x2 only likely secondary to rhabdo/elevated creatinine kinase. CK has been trending downward. Troponin is also trending downward. We will continue to trend troponins * Echo 11/02/2021-EF 40 to 45%. Mild global hypokinesis of LV. Mild diastolic dysfunction present impaired relaxation pattern. Mild mitral regurgitation * Agree with continuing IVF * Repeat Labs pending DVT prophylaxis * Heparin SQ Patient is currently in stable cardiac condition. We will continue to trend troponins. We will follow Patient in conjunction with Dr. Layton who agrees with this plan of care. - Patient Problems (1) Type 2 myocardial infarction Current Visit: Yes Status: Acute (2) Elevated troponin Current Visit: Yes Status: Acute (3) Fall Current Visit: Yes Status: Acute (4) Rhabdomyolysis Current Visit: Yes Status: Acute Qualifiers: Encounter type: initial encounter (5) Transaminitis Current Visit: Yes Status: Acute Subjective Date of service: 11/09/21 Principal diagnosis: Rhabdomyelitis Interval history: Patient resting comfortably in bed no shortness of breath or chest pain overnight Telemetry shows sinus rhythm 67 with occasional PVCs. 5 beat episode of nonsustained V. tach noted overnight. Objective Last Vital Signs Temp 98.6 F 11/09/21 08:08 Pulse 72 11/09/21 08:08 Resp 16 11/09/21 08:08 BP 96/51 11/09/21 08:08 Pulse Ox 100 11/09/21 08:08 - Physical Examination General: No Apparent Distress HEENT: Positive: PERRL, Normocephaly, Other (mass on face) Neck: Positive: trachea midline Cardiac: Positive: Reg Rate and Rhythm, S1/S2 Lungs: Positive: Normal Exam, clear to auscultation, Normal Breath Sounds Neuro: Positive: Grossly Intact Abdomen: Positive: Soft Skin: Negative: Rash, Suspicious Lesions, Ulceration Musculoskeletal: No Fluid Collection, No Pain, Normal Range of Motion Extremities: Present: upper extr. pulses. Absent: edema - Imaging and Cardiology EKG: report reviewed, image reviewed Echo: report reviewed (Echocardiogram 11/02/2021: LVEF 40 to 45% left ventricle normal sized, mild global hypokinesis, mild diastolic dysfunction. RV SF normal.) - Telemetry EKG Rhythm: Sinus Rhythm - EKG Sinus rhythms and dysrhythmias: sinus rhythm
--- NOTE | 2021-11-09 13:54 | Progress Note ---
Assessment and Plan Assessment and plan: #Rhabdomyolysis- improving Continue IVFs, can discontinue when CK level is less than 5000 -Likely secondary to fall #Concern for possible myopathy Patient endorses symptoms of proximal muscle weakness Neurology consulted; appreciate recs. Pending MRI cervical spine Pending LDH, ESR, CRP Patient might require muscle biopsy for further management #NSTEMItype II -Troponin 2.110 -> 2.290 -With elevated CK, likely secondary to rhabdomyolysis -continue aspirin -Echocardiogram showed LVEF 40-45% with mild diastolic dysfunction -Cardiology consulted, no acute intervention needed at this time #Elevated liver enzymes -AST/ ALT elevated; alk phos and t.bili WNL -tylenol level low -acute Hepatitis panel negative -likely 2/2 to cirrhosis #History of cirrhosis -2/2 to alcohol abuse -GI follow up outpatient -not decompensated at this time #Alcohol dependence - Counseled patient on the importance of ETOH cessation. Assess patient's current ETOH consumption. Assisted with trying to arrange resources for patient to adequately work towards ETOH cessation. Patient expresses understanding. -Time: +10 mins #Discharge planning -PT evaluated patient determine need for subacute rehab, given lack of insurance patient agreeable to going home with home health and PT #Advanced care planning -Disease education conducted, care plan discussed, diagnoses discussed, prognosis discussed, and patient acknowledges understanding with care plan -Time: +30 min Disposition Plan: Continue medical management Total Time Spent with Patient (Minutes): 30 min History Interval history: No acute events overnight. Hospitalist Physical - Constitutional Vitals: Temp Pulse Resp BP Pulse Ox 98.6 F 72 16 96/51 100 11/09/21 08:08 11/09/21 08:08 11/09/21 08:08 11/09/21 08:08 11/09/21 08:08 General appearance: Present: no acute distress, well-nourished, other (lipoma of R cheek) - EENT Eyes: Present: PERRL, EOM intact ENT: hearing intact, clear oral mucosa - Neck Neck: Present: supple, normal ROM - Respiratory Respiratory effort: normal Respiratory: bilateral: CTA - Cardiovascular Rhythm: regular Heart Sounds: Present: S1 & S2 - Extremities Extremities: no ischemia, pulses intact, pulses symmetrical, No edema, normal temperature, normal color, Full ROM Peripheral Pulses: within normal limits - Abdominal General gastrointestinal: soft, non-tender, non-distended, normal bowel sounds - Integumentary Integumentary: Present: clear, warm, dry - Psychiatric Psychiatric: appropriate mood/affect, intact judgment & insight, memory intact, cooperative - Neurologic Neurologic: CNII-XII intact, other (proximal muscle weakness) - Allied Health Allied health notes reviewed: nursing HEART Score - HEART Score Troponin: Troponin T 1.430 ng/mL (0.00-0.029) H* 11/09/21 04:37 Results - Labs CBC & Chem 7: 11/02/21 14:17 11/06/21 04:27 Labs: Laboratory Last Values WBC 6.6 K/mm3 (4.5-11.0) 11/02/21 14:17 RBC 4.84 M/mm3 (3.65-5.03) 11/02/21 14:17 Hgb 12.5 gm/dl (11.8-15.2) 11/02/21 14:17 Hct 39.4 % (35.5-45.6) 11/02/21 14:17 MCV 81 fl (84-94) L 11/02/21 14:17 MCH 26 pg (28-32) L 11/02/21 14:17 MCHC 32 % (32-34) 11/02/21 14:17 RDW 17.6 % (13.2-15.2) H 11/02/21 14:17 Plt Count 469 K/mm3 (140-440) H 11/02/21 14:17 Lymph % (Auto) 22.3 % (13.4-35.0) 11/02/21 14:17 [place] % (Auto) 12.5 % (0.0-7.3) H 11/02/21 14:17 Eos % (Auto) 3.2 % (0.0-4.3) 11/02/21 14:17 Baso % (Auto) 0.9 % (0.0-1.8) 11/02/21 14:17 Lymph # (Auto) 1.5 K/mm3 (1.2-5.4) 11/02/21 14:17 [place] # (Auto) 0.8 K/mm3 (0.0-0.8) 11/02/21 14:17 Eos # (Auto) 0.2 K/mm3 (0.0-0.4) 11/02/21 14:17 Baso # (Auto) 0.1 K/mm3 (0.0-0.1) 11/02/21 14:17 Seg Neutrophils % 61.1 % (40.0-70.0) 11/02/21 14:17 Seg Neutrophils # 4.0 K/mm3 (1.8-7.7) 11/02/21 14:17 ESR 48 mm/Hr (0-20) 11/06/21 14:44 PT 13.7 Sec. (12.2-14.9) 11/02/21 14:17 INR 0.95 (0.87-1.13) 11/02/21 14:17 APTT 35.5 Sec. (24.2-36.6) 11/02/21 14:17 Sodium 140 mmol/L (137-145) 11/06/21 04:27 Potassium 4.0 mmol/L (3.6-5.0) 11/06/21 04:27 Chloride 107.8 mmol/L (98-107) H 11/06/21 04:27 Carbon Dioxide 20 mmol/L (22-30) L 11/06/21 04:27 Anion Gap 16 mmol/L 11/06/21 04:27 BUN 9 mg/dL (9-20) 11/06/21 04:27 Creatinine 0.2 mg/dL (0.8-1.3) L 11/06/21 04:27 Estimated GFR > 60 ml/min 11/06/21 04:27 BUN/Creatinine Ratio 45 % 11/06/21 04:27 Glucose 82 mg/dL (75-100) 11/06/21 04:27 POC Glucose 98 mg/dL (70-105) 11/03/21 20:34 Lactic Acid 1.60 mmol/L (0.7-2.0) 11/02/21 14:17 Calcium 8.0 mg/dL (8.4-10.2) L 11/06/21 04:27 Total Bilirubin 0.20 mg/dL (0.1-1.2) 11/05/21 06:56 AST 217 units/L (5-40) H 11/05/21 06:56 ALT 134 units/L (7-56) H 11/05/21 06:56 Alkaline Phosphatase 72 units/L (35-129) 11/05/21 06:56 Ammonia 24.0 umol/L (25-60) L 11/06/21 14:44 Lactate Dehydrogenase 1223 units/L (91-180) H 11/06/21 14:44 Total Creatine Kinase 7054 units/L (55-170) H 11/09/21 04:37 CK-MB (CK-2) > 300.0 ng/mL (0.0-4.0) H 11/03/21 14:59 CK-MB (CK-2) Rel Index 2.1 (0-4) 11/03/21 14:59 Troponin T 1.430 ng/mL (0.00-0.029) H* 11/09/21 04:37 C-Reactive Protein 2.20 mg/dL (0.00-1.30) H 11/06/21 14:44 Total Protein 7.4 g/dL (6.3-8.2) 11/05/21 06:56 Albumin 3.3 g/dL (3.9-5) L 11/05/21 06:56 Albumin/Globulin Ratio 0.8 % 11/05/21 06:56 Triglycerides 183 mg/dL (2-149) H 11/02/21 14:17 Cholesterol 177 mg/dL (50-199) 11/02/21 14:17 LDL Cholesterol Direct 101 mg/dL (50-130) 11/02/21 14:17 HDL Cholesterol 43 mg/dL (40-59) 11/02/21 14:17 Cholesterol/HDL Ratio 4.11 % 11/02/21 14:17 Vitamin B12 289.2 pg/mL (211-911) 11/06/21 14:44 TSH 3.450 mlU/mL (0.270-4.200) 11/02/21 14:17 Urine Color Yellow (Yellow) 11/02/21 Unknown Urine Turbidity Clear (Clear) 11/02/21 Unknown Urine pH 6.0 (5.0-7.0) 11/02/21 Unknown Ur Specific [place] 1.016 (1.003-1.030) 11/02/21 Unknown Urine Protein <15 mg/dl mg/dL (Negative) 11/02/21 Unknown Urine Glucose (UA) Neg mg/dL (Negative) 11/02/21 Unknown Urine Ketones Neg mg/dL (Negative) 11/02/21 Unknown Urine Blood Sm (Negative) 11/02/21 Unknown Urine Nitrite Neg (Negative) 11/02/21 Unknown Urine Bilirubin Neg (Negative) 11/02/21 Unknown Urine Urobilinogen < 2.0 mg/dL (<2.0) 11/02/21 Unknown Ur Leukocyte Esterase Neg (Negative) 11/02/21 Unknown Urine WBC (Auto) < 1.0 /HPF (0.0-6.0) 11/02/21 Unknown Urine RBC (Auto) 1.0 /HPF (0.0-6.0) 11/02/21 Unknown Salicylates < 0.3 mg/dL (2.8-20.0) L 11/02/21 14:17 Acetaminophen 5.0 ug/mL (10.0-30.0) L 11/02/21 14:17 Plasma/Serum Alcohol < 0.01 % (0-0.07) 11/02/21 14:17 Hepatitis A IgM Ab Non-reactive (NonReactive) 11/04/21 06:46 Hep Bs Antigen Non-reactive (Negative) 11/04/21 06:46 Hep B Core IgM Ab Non-reactive (NonReactive) 11/04/21 06:46 Hepatitis C Antibody Non-reactive (NonReactive) 11/04/21 06:46 Cohen/IV: Voiding Method Toilet Active Medications - Current Medications Current Medications: Generic Name Dose Route Start Last Admin Trade Name Freq PRN Reason Stop Dose Admin Acetaminophen 650 mg 11/02/21 15:24 Acetaminophen 325 Mg Tab PO Q6H PRN Pain, Mild (1-3) Aspirin 325 mg 11/03/21 12:00 11/09/21 11:27 Aspirin 325 Mg Tab PO 325 mg QDAY PHYLLIS Administration Folic Acid 1 mg 11/02/21 18:43 11/09/21 11:27 Folic Acid 1 Mg Tab PO 1 mg QDAY PHYLLIS Administration Heparin Sodium (Porcine) 5,000 unit 11/04/21 14:00 11/09/21 07:38 Heparin 5,000 Unit/1 Ml Vial SUB-Q 5,000 unit Q8HR PHYLLIS Administration Sodium Chloride 1,000 mls @ 200 mls/hr 11/02/21 15:30 11/09/21 07:38 Nacl 0.9% 1000 Ml IV 150 mls/hr DIRECT PHYLLIS Administration Meclizine HCl 12.5 mg 11/07/21 18:00 11/09/21 07:38 Meclizine 12.5 Mg Tab PO 12.5 mg Q12H PHYLLIS Administration Morphine Sulfate 2 mg 11/02/21 15:24 Morphine 4 Mg/1 Ml Inj IV Q6HR PRN Chest Pain unrelieved by NTG Multivitamins 1 each 11/02/21 18:43 11/09/21 11:27 Multivitamins ,Therapeutic Tab PO 1 each QDAY PHYLLIS Administration Nitroglycerin 0.4 mg 11/02/21 15:24 Nitroglycerin 0.4 Mg Tab Subl SL Q5M PRN Chest Pain Prednisone 60 mg 11/07/21 10:00 11/09/21 11:27 Prednisone 20 Mg Tab PO 60 mg QDAY PHYLLIS Administration Sodium Chloride 10 ml 11/02/21 15:24 11/09/21 11:27 Sodium Chloride 0.9% 10 Ml Flush Syringe IV 10 ml PRN PRN Administration LINE FLUSH Thiamine HCl 100 mg 11/02/21 18:43 11/09/21 11:27 Thiamine 100 Mg Tab PO 100 mg QDAY PHYLLIS Administration Tramadol HCl 50 mg 11/02/21 15:24 11/07/21 17:32 Tramadol 50 Mg Tab PO 50 mg Q6H PRN Administration Pain, Moderate (4-6) Nutrition/Malnutrition Assess - Dietary Evaluation Nutrition/Malnutrition Findings: Nutrition Notes Start: 11/09/21 12:17 Freq: Status: Active Protocol: Document 11/09/21 12:17 JAYANT (Rec: 11/09/21 12:20 [id number]) Nutrition Notes Need for Assessment generated from: LOS Initial or Follow up Brief Note Other Pertinent Diagnosis Rhabdomyolysis, Elevated LFTs, Cirrhosis, NSTEMI, EtOH dependence Current Diet Cardiac Height 5 ft 5 in Weight 68.9 kg [place] Body Weight (kg) 61.81 BMI 25.2 Weight Status Appropriate Subjective/Other Information Pt screened for LOS. No PO intakes documented, however, pt reports a "very good" appetite and is eating >75% of meals. He requests more food at meal times. Burn Absent Trauma Absent Current % PO Good (75-100%) Minimum of two criteria No Is patient on ventilator? No Is Patient Ambulatory and/or Out of Bed Yes REE-(Divide-St. Jeor-ambulatory/OOB) [ 1866.644 [id number]] Calculation [facility] Recommendations [facility] Additional Notes Pro needs 0.8-1g/k-69g/ day Fluid needs 1ml/kcal Nutrition Intervention Revisit per MD consult or patient Sign Off request:
[2021-11-10 06:36] LABS: Hematocrit 31.6 % (35.5-45.6); Hemoglobin 10.2 gm/dl (11.8-15.2); Mean Corpuscular HGB Conc 32 % (32-34); Mean Corpuscular Volume 82 fl (84-94); Platelet Count 392 K/mm3 (140-440); Red Blood Count 3.86 M/mm3 (3.65-5.03); Red Cell Distribution Width 18.3 % (13.2-15.2)
[2021-11-10 07:00] LABS: Blood Urea Nitrogen 10 mg/dL (9-20); Calcium 8.1 mg/dL (8.4-10.2); Hemolysis Index 4
[2021-11-10] MEDS: MECLIZINE 12.5 MG TAB PO SCH ×2 (07:05→23:52)
[2021-11-10 07:06] LABS: BUN/Creatinine Ratio 33
[2021-11-10] MEDS: HEPARIN 5,000 UNIT/1 ML VIAL SUB-Q SCH ×3 (08:49→21:48)
[2021-11-10] MEDS: predniSONE 20 MG TAB PO SCH (09:42)
[2021-11-10] MEDS: ASPIRIN 325 MG TAB PO SCH (09:42)
[2021-11-10] MEDS: MULTIVITAMINS ,THERAPEUTIC TAB PO SCH (09:42)
[2021-11-10] MEDS: THIAMINE 100 MG TAB PO SCH (09:42)
[2021-11-10] MEDS: FOLIC ACID 1 MG TAB PO SCH (09:42)
--- NOTE | 2021-11-10 09:49 | Progress Note ---
Assessment and Plan Assessment and plan: #Rhabdomyolysis- improving Continue IVFs, can discontinue when CK level is less than 5000 -Significant improvement. CPK has come from 12,000 down to 6000. -Likely secondary to fall and alcohol. #Concern for possible myopathy Patient endorses symptoms of proximal muscle weakness -direct effects of alcohol toxicity Neurology consulted; appreciate recs. Pending MRI cervical spine Pending LDH, ESR, CRP Patient might require muscle biopsy for further management #NSTEMItype II -Troponin 2.110 -> 2.290 -With elevated CK, secondary to rhabdomyolysis -continue aspirin -Echocardiogram showed LVEF 40-45% with mild diastolic dysfunction -Cardiology consulted, no acute intervention needed at this time #Elevated liver enzymes -AST/ ALT elevated; alk phos and t.bili WNL -tylenol level low -acute Hepatitis panel negative -likely 2/2 to cirrhosis #History of cirrhosis -Secondary to alcohol abuse -GI follow up outpatient -not decompensated at this time #Alcohol dependence - Counseled patient on the importance of ETOH cessation. Assess patient's current ETOH consumption. Assisted with trying to arrange resources for patient to adequately work towards ETOH cessation. Patient expresses understanding. -Time: +5min reaffirmation of previous physician conversation #Discharge planning -PT evaluated patient determine need for subacute rehab, given lack of insurance patient agreeable to going home with home health and PT #Advanced care planning -Disease education conducted, care plan discussed, diagnoses discussed, prognosis discussed, and patient acknowledges understanding with care plan -Time: +19min Subjective Date of service: 11/10/21 Principal diagnosis: Rhabdomyolysis Interval history: History of present illness: 56 YO Male with ETOH Dependence complicated by Cirrhosis, Right Face Lipoma presents ED for evaluation. Patient reports "I am weak and I fell down the stairs". Patient states that he has experienced increased weakness over the past 1 month with persistent and worsening symptoms over the same timeframe. Patient reports that "my legs gave out" and he fell on stairs. . Patient found to have rhabdomyolysis, as well as elevated troponin with suspected type II NSTEMI. Patient admitted to medical floor due to increased risk of worsening symptoms and initiated on IV fluid resuscitation therapy. At present. Patient states he feels a little bit stronger. Objective - Constitutional Vitals: Vital Signs - 12hr 11/09/21 11/09/21 11/10/21 22:00 23:15 03:38 Temperature 97.8 F 98.0 F Pulse Rate 67 53 L Respiratory 16 18 Rate Blood Pressure 105/65 95/61 O2 Sat by Pulse 97 98 99 Oximetry 11/10/21 08:19 Temperature 98.3 F Pulse Rate 61 Respiratory 18 Rate Blood Pressure 114/71 O2 Sat by Pulse 97 Oximetry General appearance: Present: no acute distress, well-nourished, other (Tumor on right cheek unchanged.) - EENT Eyes: PERRL, EOM intact ENT: hearing intact, clear oral mucosa Ears: bilateral: normal - Neck Neck: supple, normal ROM - Respiratory Respiratory effort: normal Respiratory: bilateral: CTA - Breasts Breasts: normal - Cardiovascular Rhythm: regular Heart Sounds: Present: S1 & S2. Absent: gallop, rub Extremities: pulses intact, No edema, normal color, Full ROM - Gastrointestinal General gastrointestinal: Present: soft, non-tender, non-distended, normal bowel sounds - Genitourinary Male genitourinary: normal - Integumentary Integumentary: clear, warm, dry - Musculoskeletal Musculoskeletal: generalized weakness - Neurologic Neurologic: moves all extremities - Psychiatric Psychiatric: memory intact, appropriate mood/affect, intact judgment & insight - Labs CBC & Chem 7: 11/10/21 04:58 11/10/21 04:58 Labs: Abnormal lab results 11/09/21 11/10/21 11/10/21 Range/Units 04:37 04:58 04:58 Hgb 10.2 L (11.8-15.2) gm/dl Hct 31.6 L (35.5-45.6) % MCV 82 L (84-94) fl MCH 26 L (28-32) pg RDW 18.3 H (13.2-15.2) % Potassium 3.5 L (3.6-5.0) mmol/L Chloride 107.4 H (98-107) mmol/L Creatinine 0.3 L (0.8-1.3) mg/dL Calcium 8.1 L (8.4-10.2) mg/dL Total Creatine Kinase 6929 H (55-170) units/L Troponin T 1.430 H* 1.680 H* (0.00-0.029) ng/mL HEART Score - HEART Score Troponin: Troponin T 1.680 ng/mL (0.00-0.029) H* 11/10/21 04:58
--- NOTE | 2021-11-10 14:50 | Progress Note ---
Assessment and Plan Currently stable cardiac status. Ischemic evaluation with possible pharmacologic stress MPI later. - Patient Problems (1) Rhabdomyolysis Current Visit: Yes Status: Acute Qualifiers: Encounter type: initial encounter (2) Fall Current Visit: Yes Status: Acute (3) Type 2 myocardial infarction Current Visit: Yes Status: Acute (4) Abnormal LFTs Current Visit: Yes Status: Acute (5) Alcohol dependence Current Visit: Yes Status: Chronic (6) Cirrhosis Current Visit: Yes Status: Chronic Qualifiers: Hepatic cirrhosis type: alcoholic cirrhosis Subjective Date of service: 11/10/21 Principal diagnosis: Rhabdomyolysis Interval history: No complaint. In NSR. Objective Vital Signs Temp Pulse Resp BP Pulse Ox 11/10/21 10:00 68 98 11/10/21 08:19 98.3 F 61 18 114/71 97 11/10/21 03:38 98.0 F 53 L 18 95/61 99 11/09/21 23:15 97.8 F 67 16 105/65 98 11/09/21 22:00 97 11/09/21 19:28 98.5 F 64 16 108/50 100 11/09/21 16:41 98.7 F 66 18 105/53 98 - Physical Examination General: No Apparent Distress HEENT: Positive: EOMI, Normocephaly, Mucus Membranes Moist Neck: Positive: neck supple, trachea midline Cardiac: Positive: Reg Rate and Rhythm, S1/S2 Lungs: Positive: clear to auscultation Neuro: Positive: Grossly Intact Abdomen: Positive: Soft, Active Bowel Sounds. Negative: Tender Skin: Negative: Rash, Suspicious Lesions, Ulceration Musculoskeletal: Normal Range of Motion Extremities: Absent: edema - Labs and Meds CBC 11/10/21 Range/Units 04:58 WBC 7.1 (4.5-11.0) K/mm3 RBC 3.86 (3.65-5.03) M/mm3 Hgb 10.2 L (11.8-15.2) gm/dl Hct 31.6 L (35.5-45.6) % Plt Count 392 (140-440) K/mm3 Comprehensive Metabolic Panel 11/10/21 Range/Units 04:58 Sodium 137 (137-145) mmol/L Potassium 3.5 L (3.6-5.0) mmol/L Chloride 107.4 H (98-107) mmol/L Carbon Dioxide 22 (22-30) mmol/L BUN 10 (9-20) mg/dL Creatinine 0.3 L (0.8-1.3) mg/dL Glucose 84 (75-100) mg/dL Calcium 8.1 L (8.4-10.2) mg/dL - Imaging and Cardiology Echo: report reviewed (Echocardiogram 11/02/2021: LVEF 40 to 45% left ventricle normal sized, mild global hypokinesis, mild diastolic dysfunction. RV SF normal.) - Telemetry EKG Rhythm: Sinus Rhythm
[2021-11-10] MEDS: SODIUM CHLORIDE 0.9% 1000 ML 1,000 ML IV SCH ×2 (17:45→17:46)
[2021-11-10] MEDS ORDERED: ALPRAZolam 0.25 MG TAB PO ONE (23:38)
[2021-11-11] MEDS: HEPARIN 5,000 UNIT/1 ML VIAL SUB-Q SCH ×3 (05:21→22:00)
--- NOTE | 2021-11-11 08:08 | Progress Note ---
Assessment and Plan Assessment and plan: #Rhabdomyolysis- improving Continue IVFs, can discontinue when CK level is less than 5000 -Significant improvement. CPK has come from 12,000 down to 6000. -Likely secondary to fall and alcohol. #Concern for possible myopathy Patient endorses symptoms of proximal muscle weakness -direct effects of alcohol toxicity Neurology consulted; appreciate recs. Pending MRI cervical spine Pending LDH, ESR, CRP Patient might require muscle biopsy for further management #NSTEMItype II -Troponin 2.110 -> 2.290 -With elevated CK, secondary to rhabdomyolysis -continue aspirin -Echocardiogram showed LVEF 40-45% with mild diastolic dysfunction -Cardiology consulted, no acute intervention needed at this time #Elevated liver enzymes -AST/ ALT elevated; alk phos and t.bili WNL -tylenol level low -acute Hepatitis panel negative -likely 2/2 to cirrhosis #History of cirrhosis -Secondary to alcohol abuse -GI follow up outpatient -not decompensated at this time #Alcohol dependence - Counseled patient on the importance of ETOH cessation. Assess patient's current ETOH consumption. Assisted with trying to arrange resources for patient to adequately work towards ETOH cessation. Patient expresses understanding. -Time: +5min reaffirmation of previous physician conversation #Discharge planning -PT evaluated patient determine need for subacute rehab, given lack of insurance patient agreeable to going home with home health and PT #Advanced care planning -Disease education conducted, care plan discussed, diagnoses discussed, prognosis discussed, and patient acknowledges understanding with care plan -Time: +19min Subjective Date of service: 11/11/21 Principal diagnosis: Rhabdomyolysis Interval history: History of present illness: 56 YO Male with ETOH Dependence complicated by Cirrhosis, Right Face Lipoma presents ED for evaluation. Patient reports "I am weak and I fell down the stairs". Patient states that he has experienced increased weakness over the past 1 month with persistent and worsening symptoms over the same timeframe. Patient reports that "my legs gave out" and he fell on stairs. . Patient found to have rhabdomyolysis, as well as elevated troponin with suspected type II NSTEMI. Patient admitted to medical floor due to increased risk of worsening symptoms and initiated on IV fluid resuscitation therapy. At present. Patient states he feels a little bit stronger. 11/11/2021. Patient feels better alert. Patient states he feels stronger. Suggest that he would wants to get up and try to walk. No new concerns overnight. Creatinine has come down from 12,000-6000. Objective - Constitutional Vitals: Vital Signs - 12hr 11/10/21 11/10/21 11/10/21 20:31 20:34 22:00 Temperature 98.7 F 98.4 F Pulse Rate 69 71 69 Pulse Rate [ 69 Radial] Respiratory 16 18 17 Rate Respiratory 16 Rate [Bilateral Chest] Blood Pressure 119/63 Blood Pressure 122/69 [Left] O2 Sat by Pulse 100 98 94 Oximetry 11/10/21 23:45 Temperature 97.9 F Pulse Rate 67 Pulse Rate [ Radial] Respiratory 18 Rate Respiratory Rate [Bilateral Chest] Blood Pressure 115/70 Blood Pressure [Left] O2 Sat by Pulse 97 Oximetry General appearance: Present: no acute distress, well-nourished - EENT Eyes: PERRL, EOM intact ENT: other Ears: bilateral: normal - Neck Neck: supple, normal ROM - Respiratory Respiratory effort: normal Respiratory: bilateral: CTA - Breasts Breasts: normal - Cardiovascular Rhythm: regular Heart Sounds: Present: S1 & S2. Absent: gallop, rub Extremities: pulses intact, No edema, normal color, Full ROM Extremity abnormal: other (Generalized weakness lower extremity.) - Gastrointestinal General gastrointestinal: Present: soft, non-tender, non-distended, normal bowel sounds - Genitourinary Male genitourinary: normal - Integumentary Integumentary: clear, warm, dry - Musculoskeletal Musculoskeletal: generalized weakness - Neurologic Neurologic: moves all extremities - Psychiatric Psychiatric: memory intact, appropriate mood/affect, intact judgment & insight - Labs CBC & Chem 7: 11/10/21 04:58 11/10/21 04:58 Labs: Abnormal lab results 11/11/21 Range/Units 05:36 Total Creatine Kinase 6652 H (55-170) units/L HEART Score - HEART Score Troponin: Troponin T 1.680 ng/mL (0.00-0.029) H* 11/10/21 04:58
[2021-11-11] MEDS: MECLIZINE 12.5 MG TAB PO SCH ×2 (09:48→18:10)
[2021-11-11] MEDS: ASPIRIN 325 MG TAB PO SCH (09:48)
[2021-11-11] MEDS: FOLIC ACID 1 MG TAB PO SCH (09:48)
[2021-11-11] MEDS: THIAMINE 100 MG TAB PO SCH (09:48)
[2021-11-11] MEDS: MULTIVITAMINS ,THERAPEUTIC TAB PO SCH (09:48)
[2021-11-11] MEDS: predniSONE 20 MG TAB PO SCH (09:54)
--- NOTE | 2021-11-11 12:34 | Progress Note ---
Assessment and Plan Lexiscan stress MPI in a.m. - Patient Problems (1) Rhabdomyolysis Current Visit: Yes Status: Acute Qualifiers: Encounter type: initial encounter (2) Fall Current Visit: Yes Status: Acute (3) Type 2 myocardial infarction Current Visit: Yes Status: Acute (4) Abnormal LFTs Current Visit: Yes Status: Acute (5) Alcohol dependence Current Visit: Yes Status: Chronic (6) Cirrhosis Current Visit: Yes Status: Chronic Qualifiers: Hepatic cirrhosis type: alcoholic cirrhosis Subjective Date of service: 11/11/21 Principal diagnosis: Rhabdomyolysis Interval history: No complaint. In NSR. Objective Vital Signs Temp Pulse Pulse Resp Resp BP BP 11/11/21 10:00 17 11/11/21 07:59 98.2 F 64 16 141/80 11/11/21 03:54 98.6 F 67 18 124/63 11/10/21 23:45 97.9 F 67 18 115/70 11/10/21 22:00 69 69 17 16 11/10/21 20:34 98.4 F 71 18 119/63 11/10/21 20:31 98.7 F 69 16 122/69 11/10/21 17:31 98.4 F 76 18 126/66 Pulse Ox 11/11/21 10:00 96 11/11/21 07:59 100 11/11/21 03:54 96 11/10/21 23:45 97 11/10/21 22:00 94 11/10/21 20:34 98 11/10/21 20:31 100 11/10/21 17:31 98 - Physical Examination General: No Apparent Distress HEENT: Positive: EOMI, Normocephaly, Mucus Membranes Moist Neck: Positive: neck supple, trachea midline Cardiac: Positive: Reg Rate and Rhythm, S1/S2 Lungs: Positive: clear to auscultation Neuro: Positive: Grossly Intact Abdomen: Positive: Soft, Active Bowel Sounds. Negative: Tender Skin: Negative: Rash Musculoskeletal: Normal Range of Motion Extremities: Absent: edema - Imaging and Cardiology Echo: report reviewed (Echocardiogram 11/02/2021: LVEF 40 to 45% left ventricle normal sized, mild global hypokinesis, mild diastolic dysfunction. RV SF normal.) - Telemetry EKG Rhythm: Sinus Rhythm
[2021-11-11 22:38] LABS: ANA Screen, IFA Negative (Negative)
[2021-11-12] MEDS: HEPARIN 5,000 UNIT/1 ML VIAL SUB-Q SCH (05:23)
[2021-11-12] MEDS: MECLIZINE 12.5 MG TAB PO SCH (05:46)
[2021-11-12] MEDS ORDERED: REGADENOSON 0.4 MG/5 ML INJ IV ONE (07:38)
[2021-11-12 09:31] VITALS: BP 121/70
--- NOTE | 2021-11-12 10:10 | Progress Note ---
Assessment and Plan Patient is a 56-year-old male who states his only past medical history is an inflamed liver which he states he was diagnosed with about 7 months who presents to the ED today with a complaint of falls and weakness which has been going on for several months. Falls Weakness NSTEMI type 2 Rhabdomyolysis Transaminitis Myopathy?-neuro following Echo 11/02/2021-EF 40 to 45%. Mild global hypokinesis of LV. Mild diastolic dysfunction present impaired relaxation pattern. Mild mitral regurgitation Lexiscan MPI stress test 11/12/2021- Negative for signs of ischemia Plan: CK appears to be slowly improving. Continue IV fluids. Suspect NSTEMI type II in setting of rhabdomyolysis No ANDREW, ARB, or beta-damian due to soft bp Patient has negative stress test this a.m. Patient cardiac status stable for discharge Patient has a follow-up appointment with Dr. Layton, [facility] technical sales specialist, on 12/07/2021 at 10:30 AM at our [place] location. Phone #[phone] Patient in conjunction with Dr. Pichardo who agrees with this plan of care. - Patient Problems (1) Type 2 myocardial infarction Current Visit: Yes Status: Acute (2) Elevated troponin Current Visit: Yes Status: Acute (3) Fall Current Visit: Yes Status: Acute (4) Rhabdomyolysis Current Visit: Yes Status: Acute Qualifiers: Encounter type: initial encounter (5) Transaminitis Current Visit: Yes Status: Acute Subjective Date of service: 11/12/21 Principal diagnosis: Rhabdomyolysis Interval history: Patient for stress test this AM Sinus 70s-80s on monitor Objective Vital Signs Temp Pulse Pulse Resp BP Pulse Ox 11/12/21 08:37 121/70 11/12/21 08:36 120/69 11/12/21 08:35 125/68 11/12/21 08:34 133/73 11/12/21 08:33 148/75 11/12/21 08:09 138/66 11/12/21 05:12 98.2 F 71 18 127/59 97 11/11/21 22:00 72 89 95 11/11/21 20:35 98.3 F 68 18 122/70 100 11/11/21 16:03 98.8 F 71 18 130/73 99 11/11/21 12:20 97.5 F L 72 18 125/62 99 - Physical Examination General: No Apparent Distress HEENT: Positive: EOMI, Normocephaly, Mucus Membranes Moist Neck: Positive: neck supple, trachea midline Cardiac: Positive: Reg Rate and Rhythm Lungs: Positive: Normal Breath Sounds Neuro: Positive: Grossly Intact Abdomen: Positive: Soft, Active Bowel Sounds. Negative: Tender Skin: Negative: Rash Musculoskeletal: Normal Range of Motion Extremities: Absent: edema - Imaging and Cardiology EKG: report reviewed, image reviewed Echo: report reviewed (Echocardiogram 11/02/2021: LVEF 40 to 45% left ventricle normal sized, mild global hypokinesis, mild diastolic dysfunction. RV SF normal.) - Telemetry EKG Rhythm: Sinus Rhythm - EKG Sinus rhythms and dysrhythmias: sinus rhythm
[2021-11-12 10:22] LABS: Hematocrit 38.3 % (35.5-45.6); Hemoglobin 12.4 gm/dl (11.8-15.2); Mean Corpuscular HGB Conc 32 % (32-34); Mean Corpuscular Volume 81 fl (84-94); Platelet Count 482 K/mm3 (140-440); Red Blood Count 4.71 M/mm3 (3.65-5.03); Red Cell Distribution Width 18.3 % (13.2-15.2)
--- NOTE | 2021-11-12 10:27 | Discharge Summary ---
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 Procedures: None. Hospital course: Patient is a 56-year-old male past medical history of alcohol dependence complicated by cirrhosis, right lower face lipoma, and noninsulin-dependent type 2 diabetes who presented with progressive weakness over approximately 6-7 months that resulted in his "legs giving out" and him collapsing on the stairs. The patient was transported to the ED where he was found to have rhabdomyolysis (CK 16,049) and elevated troponin (2.360). The patient was evaluated for his ground-level fall with the following imaging: Chest x-ray, CT head noncontrast, CT cervical spine, CT lumbar spine, CT thoracic spinefound to be unremarkable. Cardiology was consulted in the setting of NSTEMI (determined to be type II in the setting of rhabdomyolysis). TTE revealed EF 45-45% with mild global hypokinesis of the left ventricle. Patient was started on IV fluids in order to reduce the CK significantly (<5000). Cardiology determined that the patient likely had a type II NSTEMI. In the setting of alcohol dependence, the patient was initiated on CIWA protocol. With further history, there was concern for a myopathy. Neurology was consulted for further management. The patient underwent MRI cervical spine was found to be negative. Patient was initiated on prednisone 60 mg daily for treatment of possible myopathy. [facility] is unable to provide muscle biopsy; therefore, patient should follow-up with primary care quickly after discharge to obtain a rheumatology referral. Patient is medically clear for discharge. Disposition: 01 HOME / SELF CARE / HOMELESS Final Discharge Diagnosis (Prints w/discharge instructions): Rhabdomyolysis, NSTEMI type II, elevated transaminases, alcohol dependence, history of compensated cirrhosis, possible myopathy Time spent for discharge: 45 min Core Measure Documentation - Palliative Care Palliative Care/ Comfort Measures: Not Applicable - Core Measures Any of the following diagnoses?: none Exam - Constitutional Vitals: Temp Pulse Resp BP Pulse Ox 98.2 F 71 18 121/70 97 11/12/21 05:12 11/12/21 05:12 11/12/21 05:12 11/12/21 08:37 11/12/21 05:12 General appearance: Present: no acute distress, other (Lipoma of right lower face) - EENT Eyes: Present: PERRL, EOM intact ENT: hearing intact, clear oral mucosa, edentulous - Neck Neck: Present: supple, normal ROM - Respiratory Respiratory effort: normal Respiratory: bilateral: CTA - Cardiovascular Rhythm: regular Heart Sounds: Present: S1 & S2 - Extremities Extremities: no ischemia, pulses intact, pulses symmetrical, No edema, normal temperature, normal color Peripheral Pulses: within normal limits - Abdominal General gastrointestinal: Present: soft, non-tender, non-distended, normal bowel sounds Male genitourinary: Present: deferred - Rectal Rectal Exam: deferred - Integumentary Integumentary: Present: clear, warm, dry - Musculoskeletal Musculoskeletal: generalized weakness - Psychiatric Psychiatric: appropriate mood/affect, intact judgment & insight, memory intact, cooperative - Neurologic Neurologic: CNII-XII intact, moves all extremities - Allied Health Allied health notes reviewed: nursing Plan Activity: advance as tolerated Diet: regular Additional Instructions: Patient is a 56-year-old male past medical history of alcohol dependence complicated by cirrhosis, right lower face lipoma, and noninsulin-dependent type 2 diabetes who presented with progressive weakness over approximately 6-7 months that resulted in his "legs giving out" and him collapsing on the stairs. The patient was transported to the ED where he was found to have rhabdomyolysis (CK 16,049) and elevated troponin (2.360). The patient was evaluated for his ground-level fall with the following imaging: Chest x-ray, CT head noncontrast, CT cervical spine, CT lumbar spine, CT thoracic spinefound to be unremarkable. Cardiology was consulted in the setting of NSTEMI (determined to be type II in the setting of rhabdomyolysis). TTE revealed EF 45-45% with mild global hypokinesis of the left ventricle. Patient was started on IV fluids in order to reduce the CK significantly (<5000). Cardiology determined that the patient likely had a type II NSTEMI. In the setting of alcohol dependence, the patient was initiated on CIWA protocol. With further history, there was concern for a myopathy. Neurology was consulted for further management. The patient underwent MRI cervical spine was found to be negative. Patient was initiated on prednisone 60 mg daily for treatment of possible myopathy. [facility] is unable to provide muscle biopsy; therefore, patient should follow-up with primary care quickly after discharge to obtain a rheumatology referral. Patient is medically clear for discharge. Care Plan Goals: Patient is medically cleared for discharge. Assessment: Patient is a 56-year-old male past medical history of alcohol dependence complicated by cirrhosis, right lower face lipoma, and noninsulin-dependent type 2 diabetes who presented with progressive weakness over approximately 6-7 months that resulted in his "legs giving out" and him collapsing on the stairs. The patient was transported to the ED where he was found to have rhabdomyolysis (CK 16,049) and elevated troponin (2.360). The patient was evaluated for his ground-level fall with the following imaging: Chest x-ray, CT head noncontrast, CT cervical spine, CT lumbar spine, CT thoracic spinefound to be unremarkable. Cardiology was consulted in the setting of NSTEMI (determined to be type II in the setting of rhabdomyolysis). TTE revealed EF 45-45% with mild global hypokinesis of the left ventricle. Patient was started on IV fluids in order to reduce the CK significantly (<5000). Cardiology determined that the patient likely had a type II NSTEMI. In the setting of alcohol dependence, the patient was initiated on CIWA protocol. With further history, there was concern for a myopathy. Neurology was consulted for further management. The patient underwent MRI cervical spine was found to be negative. Patient was initiated on prednisone 60 mg daily for treatment of possible myopathy. [facility] is unable to provide muscle biopsy; therefore, patient should follow-up with primary care quickly after discharge to obtain a rheumatology referral. Patient is medically clear for discharge. Follow up with: TRI CARRASCO MD [Primary Care Provider] - 3-5 Days REJI BOND MD [Staff Physician] - 7 Days Prescriptions: Meclizine [Antivert] 12.5 mg PO Q12H #60 tablet predniSONE [Deltasone] 60 mg PO QDAY #30 tablet
[2021-11-12 10:35] LABS: Blood Urea Nitrogen 13 mg/dL (9-20); Calcium 8.6 mg/dL (8.4-10.2); Hemolysis Index 7
[2021-11-12 10:36] LABS: BUN/Creatinine Ratio 43
[2021-11-12 14:40] LABS: Basophils # (Auto) 0.1 K/mm3 (0.0-0.1); Eosinophils % (Auto) 0.3 % (0.0-4.3); Monocytes # (Auto) 0.8 K/mm3 (0.0-0.8); Monocytes % (Auto) 8.2 % (0.0-7.3)
[2021-11-12 20:10] LABS: Band Neutrophils # (Manual) 0.2 K/mm3; Basophils % (Manual) 0 % (0.0-1.8); Eosinophils % (Manual) 0 % (0.0-4.3); Total Cells Counted 100
[2021-11-12 20:11] LABS: Platelet Estimate Consistent w Auto; RBC Morphology Normal
--- NOTE | 2021-11-12 23:52 | Nuclear Medicine Report ---
APPROVED REPORT Exam: Nuclear Stress Test Indication: Chest pain Patient Location: [address] [place], [place] [address] Room #: [id number] Ht: 5 ft 5 in Wt: 152 lbs BSA: 1.76 m2 HR: 65 bpmBP: 138/66 mmHgBMI: 25.29 Rhythm: SINUS RHYTHM Stress Test Details Stress Test: Pharmacologic stress testing performed using 0.4 mg of regadenoson per 5 mL given IV over 10 seconds. Reason for pharmacologic stress test: physical limitation. HR Resting HR: 65 bpm Max HR Achieved: 94 bpm Max Heart Rate (APMHR): 162.171796 bpm Target HR (85% APMHR): 137.734027 bpm % of APMHR: 58.02 Recovery HR: 83 bpm BP Resting BP: 138/65 mmHg Max BP: 148/75 mmHg Recovery BP: 120/69 mmHg ECG Resting ECG: Sinus Rhythm Stress ECG: Sinus Rhythm Clinical Reason for Termination: Completed protocol Stress Symptoms: None NM EXAM: Myocardial Perfusion REST/STRESS Imaging Protocol: Rest Tc-99m/Stress Tc-99m 1 day Resting Data Rest SPECT myocardial perfusion imaging was performed in supine position 45 minutes following the intravenous injection of 10 mCi of Tc-99m Myoview. Time of rest injection: 0700 Pharmacologic Stress Pharmacologic stress test was performed by injecting Regadenoson 0.4 mg IV push followed by the intravenous injection of 28 mCi of Tc-99m Myoview. Time of stress injection: 0833 Gated Stress SPECT was performed 30 minutes after stress injection. The images were gated to evaluate regional wall motion and calculate left ventricular ejection fraction. Study Quality Study: excellent Lung Uptake: Normal Study Data TID = 1.12. Perfusion Wall Motion The rest and stress images show normal left ventricular wall motion. Nuclear Conclusion ECG Findings: negative for ischemia Clinical Findings: negative for ischemia Nuclear Findings: negative for ischemia Exercise Capacity: not assessed Left Ventricular Function: normal Normal study. No scintigraphic evidence for myocardial ischemia or scar. Normal left ventricular size and function with no regional wall motion abnormalities.
== END 2021-11-12 13:27 | disposition home or self-care (01) | DRG 557 ==
LOC: ED 12:28 → 4A 15:25
PROVIDERS: ADMIT Internal Medicine; ATTEND Student in an Organized Health Care Education/Training Program
DX: M62.82 Rhabdomyolysis (principal); I21.A1 Myocardial infarction type 2; R74.01 Elevation of levels of liver transaminase levels; K70.30 Alcoholic cirrhosis of liver without ascites; W18.39XA Other fall on same level, initial encounter; Y93.89 Activity, other specified; Y92.89 Other specified places as the place of occurrence of the external cause; Y99.8 Other external cause status; M54.9 Dorsalgia, unspecified; S43.005A Unspecified dislocation of left shoulder joint, initial encounter; R53.81 Other malaise; F10.20 Alcohol dependence, uncomplicated; Y90.9 Presence of alcohol in blood, level not specified; D17.0 Benign lipomatous neoplasm of skin and subcutaneous tissue of head, face and neck; Z82.49 Family history of ischemic heart disease and other diseases of the circulatory system; Z83.3 Family history of diabetes mellitus
CPT/HCPCS: 36415; 70450; 70553; 71045; 72125; 72128; 72131; 72141; 72142; 72170; 78452; 80048; 80053; 80061; 80074; 80320; 81001; 82140; 82550; 82553; 82607; 82962; 83615; 84443; 84484; 85007; 85025; 85027; 85610; 85652; 85730; 86038; 86140; 93005; 93010; 93017; 93306; G0378; J3490; Q0162; A9502; A9575; C8929; G0480; J1644; J2785; J7030; J7120